=== PATIENT | female | born 1960 | race Caucasian/White ===

== ENCOUNTER 2019-05-01 15:31 | Emergency (ER) | payer OTHER ==
[~2019-05-01] VITALS: Ht 154.9 cm; Wt 99.8 kg
--- OUTSIDE RECORDS SUMMARY | 2019-05-01 15:35 | XMS REPORT ---
Author Author [facility] Address Unknown Phone Unavailable Care Team Providers Care Treatment Manager Name Role Phone Jo STOKES PP Unavailable TONY SUAREZ M.D. Unavailable Unavailable LINWOOD EPSTEIN M.D. Unavailable Unavailable Problems This patient has no known problems. Allergies, Adverse Reactions, Alerts This patient has no known allergies or adverse reactions. Medications This patient has no known medications. Encounters Start Date/Time End Date/Time Encounter Type Admission Type Attending Clinicians [facility] Facility Care Department Encounter ID 2017-01-27 17:01:00 Inpatient C [facility] [id number] 2018-12-28 18:35:00 2018-12-28 14:05:00 Inpatient E [facility] [id number] 2017-10-12 20:34:00 2017-10-12 20:34:00 Inpatient E [facility] [id number] 2017-09-01 13:56:00 2017-09-01 13:56:00 Emergency E [facility] [id number] 2016-12-22 06:03:00 2016-12-22 06:03:00 Outpatient C [facility] [id number] Results Test Description Test Time Test Comments Text Results Atomic Results Result Comments CHEST 1 VIEW PORTABLE 2018-12-23 09:55:[address] [id number] IMAGING REPORTPatient Name: RONNY VELIZ EDate of Service: [id number]: 58 Sex: F Order #: [id number] Room: [facility] A 3SDOB: 1960 X-Ray Number: [id number] Record Number: [id number] Hospital Number: [id number] Physician: DIANE PRATT - Ordering Physician: VIKTOR REILLY ONE VIEW 12/23/2018 at 9:21 AMHISTORY: Chest wall abscess, CAD, PICC placementCOMPARISON: Earlier on the same dayLeft upper extremity PICC is only seen as far as the left brachiocephalicvein level. The tip could be at the upper most aspect of the SVC and simplyobscured by sternal hardware.No other change from earlier on the same day.Electronically Signed By: Delmar Cristobal M.D., 12/23/2018 9:53 AMLegally authenticated by ISIDRO AGUILAR 2018-12-23 09:53:16 CHEST 1 VIEW PORTABLE 2018-12-23 08:36:[address] [id number] IMAGING REPORTPatient Name: RONNY VELIZ EDate of Service: [id number]: 58 Sex: F Order #: [id number] Room: [facility] 3SDOB: 1960 X-Ray Number: [id number] Record Number: [id number] Hospital Number: [id number] Physician: DIANE PRATT - Ordering Physician: JOSIAH LAM ONE VIEW 12/23/2018HISTORY: Chest wall abscess, post CABGCOMPARISON: 12/13/2018Support tubes have been removed. Extensive sternal fixation hardwareremains in place.Cardiac, hilar, and mediastinal structures are stable.Lungs show diffusely increased background interstitial markings which maybe due to an element of edema. Linear densities are also present at the midto lower lungs. Findings may be due to atelectasis or pneumonia.No new bony or soft tissue abnormalities are identified. Lower anteriorcervical spine fusion hardware is in place.IMPRESSION:Possible mild pulmonary interstitial edema with scattered areas ofatelectasis versus pneumonia bilaterally.Electronically Signed By: Delmar Cristobal M.D., 12/23/2018 7:56 AMLegally authenticated by ISIDRO AGUILAR 2018-12-23 07:56:47 BMP, BASIC METABOLIC PANEL 2018-12-23 05:47:00 SODIUM (test code=NA) 140 MMOL/L 137-145 K+ (test code=KSERUM) 5.2 MMOL/L 3.5-5.1 PLEASE NOTE NEW REFERENCE RANGE(S) IN EFFECT EFFECTIVE 02/06/2010 - NEW ANALYZER (VITROS 5600) CHLORIDE (test code=CL) 100 MMOL/L 98-107 CO2 (test code=CO2) 32 MMOL/L 22-30 BUN (test code=BUN) 16 MG/DL 7-17 CREA (test code=CREA) 0.7 MG/DL 0.7-1.2 GLUCOSE (test code=GLUCOSE) 206 MG/DL 70-99 Fasting glucose normal <100 MG/DL- [employer] recommendation CALCIUM (test code=CABLOOD) 8.1 MG/DL 8.4-10.2 GFR (test code=GFR) 91 mL/min/1.73m2 A GFR of >90 mL/min/1.73m2 is considered normal. [id number] 04:54:00* Test Item Value Reference Range Comments WBC (test code=WBC) 9.3 K/UL 3.5-10.9 RBC (test code=RBC) 3.16 M/UL 4.0-5.0 HGB (test code=HGB) 8.4 G/DL 11.5-15.5 HCT (test code=HCT) 29.1 % 34-46 MCV (test code=MCV) 92.1 FL 80-98 MCH (test code=MCH) 26.6 PG 28-32 MCHC (test code=MCHC) 28.9 G/DL 32.5-36.5 RDW (test code=RDW) 15.2 % 11.5-14.5 PLT (test code=PLT) 374 K/UL 150-450 MPV (test code=MPV) 10.7 FL 7.4-10.4 MANDIFF (test code=MANDIFF) NO SCAN (test code=SCAN) NO NEUT% (test code=NEUT%) 76.3 % 40-75 LYMPH% (test code=LYMPH%) 9.2 % 24-44 MONO% (test code=MONO%) 10.2 % 0-13 EOS% (test code=EOS%) 3.4 % 0-4 BASO % (test code=BASO%) 0.3 % 0-2 IG (test code=IG) 0 % 0-1 IG% (test code=IG%) 0.6 % 0-1 IG%=Metamyelocytes, Myelocytes, and Promyelocytes. (Immature neutrophils not including "bands".) > 3% IG indicates risk of sepsis NRBC% (test code=NRBC%) 0 /100 WBC ABS NEUT (test code=NEUT) 7.1 K/UL 1.2-7.2 WHOLE BLOOD [id number] 10:35:00* Test Item Value Reference Range Comments WHOLE BLOOD GLUCOSE (test code=POC GLU) 96 MG/DL 70-99 Fasting glucose normal <100 MG/DL- [employer] recommendation WHOLE BLOOD [id number] 10:10:00* Test Item Value Reference Range Comments WHOLE BLOOD GLUCOSE (test code=POC GLU) 140 MG/DL 70-99 Fasting glucose normal <100 MG/DL- [employer] recommendation WHOLE BLOOD [id number] 21:00:00* Test Item Value Reference Range Comments WHOLE BLOOD GLUCOSE (test code=POC GLU) 189 MG/DL 70-99 Fasting glucose normal <100 MG/DL- [employer] recommendation WHOLE BLOOD [id number] 17:15:00* Test Item Value Reference Range Comments WHOLE BLOOD GLUCOSE (test code=POC GLU) 175 MG/DL 70-99 Fasting glucose normal <100 MG/DL- [employer] recommendation WHOLE BLOOD [id number] 11:45:00* Test Item Value Reference Range Comments WHOLE BLOOD GLUCOSE (test code=POC GLU) 157 MG/DL 70-99 Fasting glucose normal <100 MG/DL- [employer] recommendation BMP, BASIC METABOLIC [id number] 09:49:00* Test Item Value Reference Range Comments SODIUM (test code=NA) 142 MMOL/L 137-145 K+ (test code=KSERUM) 4.0 MMOL/L 3.5-5.1 PLEASE NOTE NEW REFERENCE RANGE(S) IN EFFECT EFFECTIVE 02/06/2010 - NEW ANALYZER (Banter! 5600) CHLORIDE (test code=CL) 104 MMOL/L 98-107 CO2 (test code=CO2) 34 MMOL/L 22-30 BUN (test code=BUN) 25 MG/DL 7-17 CREA (test code=CREA) 0.7 MG/DL 0.7-1.2 GLUCOSE (test code=GLUCOSE) 101 MG/DL 70-99 Fasting glucose normal <100 MG/DL- [employer] recommendation CALCIUM (test code=CABLOOD) 8.4 MG/DL 8.4-10.2 GFR (test code=GFR) 91 mL/min/1.73m2 A GFR of >90 mL/min/1.73m2 is considered normal. RESULT VERIFIED BY REPEAT ANALYSIS ON ALTERNATE INSTRUMENT.[id number] 09:01:00* Test Item Value Reference Range Comments WBC (test code=WBC) 5.0 K/UL 3.5-10.9 RBC (test code=RBC) 3.10 M/UL 4.0-5.0 HGB (test code=HGB) 8.5 G/DL 11.5-15.5 HCT (test code=HCT) 28.0 % 34-46 MCV (test code=MCV) 90.3 FL 80-98 MCH (test code=MCH) 27.4 PG 28-32 MCHC (test code=MCHC) 30.4 G/DL 32.5-36.5 RDW (test code=RDW) 15.0 % 11.5-14.5 PLT (test code=PLT) 309 K/UL 150-450 MPV (test code=MPV) 10.5 FL 7.4-10.4 MANDIFF (test code=MANDIFF) NO SCAN (test code=SCAN) NO NEUT% (test code=NEUT%) 55.4 % 40-75 LYMPH% (test code=LYMPH%) 24.8 % 24-44 MONO% (test code=MONO%) 10.6 % 0-13 EOS% (test code=EOS%) 8.0 % 0-4 BASO % (test code=BASO%) 0.6 % 0-2 IG (test code=IG) 0 % 0-1 IG% (test code=IG%) 0.6 % 0-1 IG%=Metamyelocytes, Myelocytes, and Promyelocytes. (Immature neutrophils not including "bands".) > 3% IG indicates risk of sepsis NRBC% (test code=NRBC%) 0 /100 WBC ABS NEUT (test code=NEUT) 2.8 K/UL 1.2-7.2 WHOLE BLOOD [id number] 08:00:00* Test Item Value Reference Range Comments WHOLE BLOOD GLUCOSE (test code=POC GLU) 113 MG/DL 70-99 Fasting glucose normal <100 MG/DL- [employer] recommendation WHOLE BLOOD [id number] 22:05:00* Test Item Value Reference Range Comments WHOLE BLOOD GLUCOSE (test code=POC GLU) 158 MG/DL 70-99 Fasting glucose normal <100 MG/DL- [employer] recommendation WHOLE BLOOD [id number] 17:10:00* Test Item Value Reference Range Comments WHOLE BLOOD GLUCOSE (test code=POC GLU) 129 MG/DL 70-99 Fasting glucose normal <100 MG/DL- [employer] recommendation WHOLE BLOOD [id number] 11:45:00* Test Item Value Reference Range Comments WHOLE BLOOD GLUCOSE (test code=POC GLU) 114 MG/DL 70-99 Fasting glucose normal <100 MG/DL- [employer] recommendation WHOLE BLOOD [id number] 09:25:00* Test Item Value Reference Range Comments WHOLE BLOOD GLUCOSE (test code=POC GLU) 115 MG/DL 70-99 Fasting glucose normal <100 MG/DL- [employer] recommendation WHOLE BLOOD [id number] 21:25:00* Test Item Value Reference Range Comments WHOLE BLOOD GLUCOSE (test code=POC GLU) 142 MG/DL 70-99 Fasting glucose normal <100 MG/DL- [employer] recommendation WHOLE BLOOD [id number] 17:00:00* Test Item Value Reference Range Comments WHOLE BLOOD GLUCOSE (test code=POC GLU) 142 MG/DL 70-99 Fasting glucose normal <100 MG/DL- [employer] recommendation WHOLE BLOOD [id number] 12:40:00* Test Item Value Reference Range Comments WHOLE BLOOD GLUCOSE (test code=POC GLU) 148 MG/DL 70-99 Fasting glucose normal <100 MG/DL- [employer] recommendation WHOLE BLOOD [id number] 07:55:00* Test Item Value Reference Range Comments WHOLE BLOOD GLUCOSE (test code=POC GLU) 119 MG/DL 70-99 Fasting glucose normal <100 MG/DL- [employer] recommendation WHOLE BLOOD [id number] 21:15:00* Test Item Value Reference Range Comments WHOLE BLOOD GLUCOSE (test code=POC GLU) 173 MG/DL 70-99 Fasting glucose normal <100 MG/DL- [employer] recommendation WHOLE BLOOD [id number] 17:25:00* Test Item Value Reference Range Comments WHOLE BLOOD GLUCOSE (test code=POC GLU) 132 MG/DL 70-99 Fasting glucose normal <100 MG/DL- [employer] recommendation WHOLE BLOOD [id number] 11:50:00* Test Item Value Reference Range Comments WHOLE BLOOD GLUCOSE (test code=POC GLU) 191 MG/DL 70-99 Fasting glucose normal <100 MG/DL- [employer] recommendation WHOLE BLOOD [id number] 08:55:00* Test Item Value Reference Range Comments WHOLE BLOOD GLUCOSE (test code=POC GLU) 155 MG/DL 70-99 Fasting glucose normal <100 MG/DL- [employer] recommendation WHOLE BLOOD [id number] 21:15:00* Test Item Value Reference Range Comments WHOLE BLOOD GLUCOSE (test code=POC GLU) 172 MG/DL 70-99 Fasting glucose normal <100 MG/DL- [employer] recommendation WHOLE BLOOD [id number] 17:10:00* Test Item Value Reference Range Comments WHOLE BLOOD GLUCOSE (test code=POC GLU) 201 MG/DL 70-99 Fasting glucose normal <100 MG/DL- [employer] recommendation WHOLE BLOOD [id number] 17:10:00* Test Item Value Reference Range Comments WHOLE BLOOD GLUCOSE (test code=POC GLU) 199 MG/DL 70-99 Fasting glucose normal <100 MG/DL- [employer] recommendation WHOLE BLOOD [id number] 11:40:00* Test Item Value Reference Range Comments WHOLE BLOOD GLUCOSE (test code=POC GLU) 104 MG/DL 70-99 Fasting glucose normal <100 MG/DL- [employer] recommendation BMP, BASIC METABOLIC [id number] 06:38:00* Test Item Value Reference Range Comments SODIUM (test code=NA) 140 MMOL/L 137-145 K+ (test code=KSERUM) 4.0 MMOL/L 3.5-5.1 PLEASE NOTE NEW REFERENCE RANGE(S) IN EFFECT EFFECTIVE 02/06/2010 - NEW ANALYZER (Banter! 5600) CHLORIDE (test code=CL) 102 MMOL/L 98-107 CO2 (test code=CO2) 33 MMOL/L 22-30 BUN (test code=BUN) 29 MG/DL 7-17 CREA (test code=CREA) 0.7 MG/DL 0.7-1.2 GLUCOSE (test code=GLUCOSE) 227 MG/DL 70-99 Fasting glucose normal <100 MG/DL- [employer] recommendation CALCIUM (test code=CABLOOD) 8.5 MG/DL 8.4-10.2 GFR (test code=GFR) 91 mL/min/1.73m2 A GFR of >90 mL/min/1.73m2 is considered normal. RESULT VERIFIED BY REPEAT ANALYSIS ON ALTERNATE INSTRUMENT.[id number] 06:38:00* Test Item Value Reference Range Comments MG (test code=MG) 2.1 mg/dL 1.6-2.3 1 UNIT [id number] 02:07:00* Test Item Value Reference Range Comments PI (test code=PI) GUARD ENTRANCE REGISTRAR SI (test code=SI) Released WHOLE BLOOD [id number] 21:35:00* Test Item Value Reference Range Comments WHOLE BLOOD GLUCOSE (test code=POC GLU) 200 MG/DL 70-99 Fasting glucose normal <100 MG/DL- [employer] recommendation WHOLE BLOOD [id number] 18:15:00* Test Item Value Reference Range Comments WHOLE BLOOD GLUCOSE (test code=POC GLU) 215 MG/DL 70-99 Fasting glucose normal <100 MG/DL- [employer] recommendation WHOLE BLOOD [id number] 12:05:00* Test Item Value Reference Range Comments WHOLE BLOOD GLUCOSE (test code=POC GLU) 183 MG/DL 70-99 Fasting glucose normal <100 MG/DL- [employer] recommendation WHOLE BLOOD [id number] 07:05:00* Test Item Value Reference Range Comments WHOLE BLOOD GLUCOSE (test code=POC GLU) 172 MG/DL 70-99 Fasting glucose normal <100 MG/DL- [employer] recommendation WHOLE BLOOD [id number] 05:35:00* Test Item Value Reference Range Comments WHOLE BLOOD GLUCOSE (test code=POC GLU) 177 MG/DL 70-99 Fasting glucose normal <100 MG/DL- [employer] recommendation WHOLE BLOOD [id number] 18:05:00* Test Item Value Reference Range Comments WHOLE BLOOD GLUCOSE (test code=POC GLU) 132 MG/DL 70-99 Fasting glucose normal <100 MG/DL- [employer] recommendation WHOLE BLOOD [id number] 16:50:00* Test Item Value Reference Range Comments WHOLE BLOOD GLUCOSE (test code=POC GLU) 165 MG/DL 70-99 Fasting glucose normal <100 MG/DL- [employer] recommendation WHOLE BLOOD [id number] 12:30:00* Test Item Value Reference Range Comments WHOLE BLOOD GLUCOSE (test code=POC GLU) 122 MG/DL 70-99 Fasting glucose normal <100 MG/DL- [employer] recommendation [id number] 04:14:00* Test Item Value Reference Range Comments SODIUM (test code=NA) 141 MMOL/L 137-145 K+ (test code=KSERUM) 4.2 MMOL/L 3.5-5.1 PLEASE NOTE NEW REFERENCE RANGE(S) IN EFFECT EFFECTIVE 02/06/2010 - NEW ANALYZER (Banter! 5600) CHLORIDE (test code=CL) 107 MMOL/L 98-107 CO2 (test code=CO2) 29 MMOL/L 22-30 BUN (test code=BUN) 10 MG/DL 7-17 CREA (test code=CREA) 0.6 MG/DL 0.7-1.2 GLUCOSE (test code=GLUCOSE) 97 MG/DL 70-99 Fasting glucose normal <100 MG/DL- [employer] recommendation CALCIUM (test code=CABLOOD) 8.3 MG/DL 8.4-10.2 TOTPROT (test code=TOTPROT) 6.3 G/DL 6.3-8.2 ALBUMIN (test code=ALBSERUM) 3.1 G/DL 3.5-5.0 BILITOT (test code=BILITOT) 0.3 MG/DL 0.2-1.3 AST (test code=AST) 50 U/L 15-46 PHOSALK (test code=PHOSALK) 96 U/L 38-126 ALT (test code=ALT) 48 U/L 13-69 GFR (test code=GFR) 108 mL/min/1.73m2 A GFR of >90 mL/min/1.73m2 is considered normal. [id number] 03:52:00* Test Item Value Reference Range Comments WBC (test code=WBC) 5.9 K/UL 3.5-10.9 RBC (test code=RBC) 3.56 M/UL 4.0-5.0 HGB (test code=HGB) 9.5 G/DL 11.5-15.5 HCT (test code=HCT) 32.4 % 34-46 MCV (test code=MCV) 91.0 FL 80-98 MCH (test code=MCH) 26.7 PG 28-32 MCHC (test code=MCHC) 29.3 G/DL 32.5-36.5 RDW (test code=RDW) 15.2 % 11.5-14.5 PLT (test code=PLT) 351 K/UL 150-450 MPV (test code=MPV) 9.7 FL 7.4-10.4 MANDIFF (test code=MANDIFF) NO SCAN (test code=SCAN) NO NEUT% (test code=NEUT%) 64.8 % 40-75 LYMPH% (test code=LYMPH%) 17.3 % 24-44 MONO% (test code=MONO%) 10.0 % 0-13 EOS% (test code=EOS%) 6.9 % 0-4 BASO % (test code=BASO%) 0.7 % 0-2 IG (test code=IG) 0 % 0-1 IG% (test code=IG%) 0.3 % 0-1 IG%=Metamyelocytes, Myelocytes, and Promyelocytes. (Immature neutrophils not including "bands".) > 3% IG indicates risk of sepsis NRBC% (test code=NRBC%) 0 /100 WBC ABS NEUT (test code=NEUT) 3.8 K/UL 1.2-7.2 WHOLE BLOOD [id number] 02:10:00* Test Item Value Reference Range Comments WHOLE BLOOD GLUCOSE (test code=POC GLU) 216 MG/DL 70-99 Fasting glucose normal <100 MG/DL- [employer] recommendation WHOLE BLOOD [id number] 21:35:00* Test Item Value Reference Range Comments WHOLE BLOOD GLUCOSE (test code=POC GLU) 103 MG/DL 70-99 Fasting glucose normal <100 MG/DL- [employer] recommendation 1 UNIT [id number] 20:00:00* Test Item Value Reference Range Comments PI (test code=PI) GUARD ENTRANCE REGISTRAR SI (test code=SI) Transfused WHOLE BLOOD [id number] 12:15:00* Test Item Value Reference Range Comments WHOLE BLOOD GLUCOSE (test code=POC GLU) 99 MG/DL 70-99 Fasting glucose normal <100 MG/DL- [employer] recommendation WHOLE BLOOD [id number] 12:15:00* Test Item Value Reference Range Comments WHOLE BLOOD GLUCOSE (test code=POC GLU) 120 MG/DL 70-99 Fasting glucose normal <100 MG/DL- [employer] recommendation WHOLE BLOOD [id number] 12:15:00* Test Item Value Reference Range Comments WHOLE BLOOD GLUCOSE (test code=POC GLU) 62 MG/DL 70-99 Fasting glucose normal <100 MG/DL- [employer] recommendation WHOLE BLOOD [id number] 10:30:00* Test Item Value Reference Range Comments WHOLE BLOOD GLUCOSE (test code=POC GLU) 51 MG/DL 70-99 Fasting glucose normal <100 MG/DL- [employer] recommendation BLOOD GAS [id number] 09:52:00* Test Item Value Reference Range Comments SITE (test code=SITE) ARTLINE SITE ALLENS (test code=ALLENS) NA O2 EQUIP (test code=O2 EQUIP) VENT O2-DEVICE FIO2 (test code=FIO2) 50 % CPAP (test code=CPAP) 5 PS (test code=PS) 10 PH (test code=BGPH) 7.46 7.35-7.45 PCO2 (test code=PCO2) 37 MMHG 34.0-45.0 PO2 (test code=PO2) 73 MMHG 79-87 HCO3 (test code=HCO3) 26.3 mmol/L 22.0-26.0 BE (test code=BE) 2.4 mmol/L -2.0-2.0 THB (test code=THB) 9.5 G/DL 12-16 % 02 HB (test code=ABGSAT) 93.1 % 96.0-100.0 %COHB (test code=BGCO) 2.1 % <1.5 % MET HB (test code=%MET HB) 1.0 % 0.4-1.5 CAO2 (test code=CAO2) 12.5 VOL% 15.7-21.6 PF/RATIO (test code=PF/RATIO) 146.0 ANTICOAG?: NA LAST DOSE?:CHEST 1 VIEW [id number] 07:27:[address] [id number] IMAGING REPORTPatient Name: RONNY VELIZ of Service: 28-08-7531Ztl: 58 Sex: F Order #: [id number] Room: [facility] 2CVUDOB: 1960 X-Ray Number: [id number] Record Number: [id number] Hospital Number: [id number] Physician: DIANE PRATT -Ordering Physician: YESENIA GARCIA hest:12/13/2018 4:51 AMHistory: Respiratory failure.Technique: Single AP chest pr ojection.Comparison:December 12, 2018.Findings:Cardiomegaly and persistent mild inte rstitial infiltrates in the lungbases. Endotracheal, NG tube appear stable. Prio r sternotomy.Impression:No interval change.Electronically Signed By: Chauncey lee M.D., 12/13/2018 7:25 AMLegally authenticated by WANDA Gonzalez 2018-0 12-13 07:25:23WHOLE BLOOD [id number] 06:30:00* Test Item Value Reference Range Comments WHOLE BLOOD GLUCOSE (test code=POC GLU) 115 MG/DL 70-99 Fasting glucose normal <100 MG/DL- [employer] recommendation WHOLE BLOOD [id number] 06:20:00* Test Item Value Reference Range Comments WHOLE BLOOD GLUCOSE (test code=POC GLU) 67 MG/DL 70-99 Fasting glucose normal <100 MG/DL- [employer] recommendation WHOLE BLOOD [id number] 05:45:00* Test Item Value Reference Range Comments WHOLE BLOOD GLUCOSE (test code=POC GLU) 73 MG/DL 70-99 Fasting glucose normal <100 MG/DL- [employer] recommendation BMP, BASIC METABOLIC [id number] 04:46:00* Test Item Value Reference Range Comments SODIUM (test code=NA) 138 MMOL/L 137-145 K+ (test code=KSERUM) 4.3 MMOL/L 3.5-5.1 PLEASE NOTE NEW REFERENCE RANGE(S) IN EFFECT EFFECTIVE 02/06/2010 - NEW ANALYZER ([employer]ter! 5600) CHLORIDE (test code=CL) 108 MMOL/L 98-107 CO2 (test code=CO2) 27 MMOL/L 22-30 BUN (test code=BUN) 17 MG/DL 7-17 CREA (test code=CREA) 0.6 MG/DL 0.7-1.2 GLUCOSE (test code=GLUCOSE) 62 MG/DL 70-99 Fasting glucose normal <100 MG/DL- [employer] recommendation CALCIUM (test code=CABLOOD) 8.0 MG/DL 8.4-10.2 GFR (test code=GFR) 108 mL/min/1.73m2 A GFR of >90 mL/min/1.73m2 is considered normal. BLOOD GAS [id number] 04:36:00* Test Item Value Reference Range Comments SITE (test code=SITE) [place]OR[place] SITE ALLENS (test code=ALLENS) NA O2 EQUIP (test code=O2 EQUIP) 840 O2-DEVICE FIO2 (test code=FIO2) 40 % A/C (test code=A/C) 12 PEEP (test code=PEEP) 5 VT (test code=VT) 600 PIP (test code=PIP) 24 VMIN (test code=VMIN) 7.46 PH (test code=BGPH) 7.42 7.35-7.45 PCO2 (test code=PCO2) 47 MMHG 34.0-45.0 PO2 (test code=PO2) 104 MMHG 79-87 HCO3 (test code=HCO3) 30.5 mmol/L 22.0-26.0 BE (test code=BE) 5.4 mmol/L -2.0-2.0 THB (test code=THB) 8.6 G/DL 12-16 % 02 HB (test code=ABGSAT) 95.3 % 96.0-100.0 %COHB (test code=BGCO) 2.2 % <1.5 % MET HB (test code=%MET HB) 0.7 % 0.4-1.5 CAO2 (test code=CAO2) 11.7 VOL% 15.7-21.6 PF/RATIO (test code=PF/RATIO) 260.0 ANTICOAG?: LAST DOSE?:[id number] 04:03:00* Test Item Value Reference Range Comments WBC (test code=WBC) 5.5 K/UL 3.5-10.9 RBC (test code=RBC) 3.17 M/UL 4.0-5.0 HGB (test code=HGB) 8.5 G/DL 11.5-15.5 HCT (test code=HCT) 28.5 % 34-46 MCV (test code=MCV) 89.9 FL 80-98 MCH (test code=MCH) 26.8 PG 28-32 MCHC (test code=MCHC) 29.8 G/DL 32.5-36.5 RDW (test code=RDW) 15.5 % 11.5-14.5 PLT (test code=PLT) 362 K/UL 150-450 MPV (test code=MPV) 10.1 FL 7.4-10.4 MANDIFF (test code=MANDIFF) NO SCAN (test code=SCAN) NO NEUT% (test code=NEUT%) 63.8 % 40-75 LYMPH% (test code=LYMPH%) 17.9 % 24-44 MONO% (test code=MONO%) 9.2 % 0-13 EOS% (test code=EOS%) 8.2 % 0-4 BASO % (test code=BASO%) 0.7 % 0-2 IG (test code=IG) 0 % 0-1 IG% (test code=IG%) 0.2 % 0-1 IG%=Metamyelocytes, Myelocytes, and Promyelocytes. (Immature neutrophils not including "bands".) > 3% IG indicates risk of sepsis NRBC% (test code=NRBC%) 0 /100 WBC ABS NEUT (test code=NEUT) 3.5 K/UL 1.2-7.2 WHOLE BLOOD [id number] 18:50:00* Test Item Value Reference Range Comments WHOLE BLOOD GLUCOSE (test code=POC GLU) 84 MG/DL 70-99 Fasting glucose normal <100 MG/DL- [employer] recommendation [id number] 18:38:00* Test Item Value Reference Range Comments WBC (test code=WBC) 4.9 K/UL 3.5-10.9 RBC (test code=RBC) 3.10 M/UL 4.0-5.0 HGB (test code=HGB) 8.3 G/DL 11.5-15.5 HCT (test code=HCT) 28.4 % 34-46 MCV (test code=MCV) 91.6 FL 80-98 MCH (test code=MCH) 26.8 PG 28-32 MCHC (test code=MCHC) 29.2 G/DL 32.5-36.5 RDW (test code=RDW) 15.4 % 11.5-14.5 PLT (test code=PLT) 383 K/UL 150-450 MPV (test code=MPV) 9.9 FL 7.4-10.4 MANDIFF (test code=MANDIFF) NO SCAN (test code=SCAN) NO NEUT% (test code=NEUT%) 64.3 % 40-75 LYMPH% (test code=LYMPH%) 20.1 % 24-44 MONO% (test code=MONO%) 7.2 % 0-13 EOS% (test code=EOS%) 7.6 % 0-4 BASO % (test code=BASO%) 0.6 % 0-2 IG (test code=IG) 0 % 0-1 IG% (test code=IG%) 0.2 % 0-1 IG%=Metamyelocytes, Myelocytes, and Promyelocytes. (Immature neutrophils not including "bands".) > 3% IG indicates risk of sepsis NRBC% (test code=NRBC%) 0 /100 WBC ABS NEUT (test code=NEUT) 3.1 K/UL 1.2-7.2 BMP, BASIC METABOLIC [id number] 18:33:00* Test Item Value Reference Range Comments SODIUM (test code=NA) 139 MMOL/L 137-145 K+ (test code=KSERUM) 4.4 MMOL/L 3.5-5.1 PLEASE NOTE NEW REFERENCE RANGE(S) IN EFFECT EFFECTIVE 02/06/2010 - NEW ANALYZER ([employer]! [id number]) CHLORIDE (test code=CL) 108 MMOL/L 98-107 CO2 (test code=CO2) 28 MMOL/L 22-30 BUN (test code=BUN) 15 MG/DL 7-17 CREA (test code=CREA) 0.7 MG/DL 0.7-1.2 GLUCOSE (test code=GLUCOSE) 124 MG/DL 70-99 Fasting glucose normal <100 MG/DL- [employer] recommendation CALCIUM (test code=CABLOOD) 7.6 MG/DL 8.4-10.2 GFR (test code=GFR) 91 mL/min/1.73m2 A GFR of >90 mL/min/1.73m2 is considered normal. BLOOD GAS [id number] 17:35:00* Test Item Value Reference Range Comments SITE (test code=SITE) ARTLINE SITE ALLENS (test code=ALLENS) NA O2 EQUIP (test code=O2 EQUIP) VENT O2-DEVICE FIO2 (test code=FIO2) 50 % A/C (test code=A/C) 12 PT. RR (test code=PT. RR) 13 PEEP (test code=PEEP) 5 VT (test code=VT) 600 PIP (test code=PIP) 32 VMIN (test code=VMIN) 7.97 PH (test code=BGPH) 7.39 7.35-7.45 PCO2 (test code=PCO2) 47 MMHG 34.0-45.0 PO2 (test code=PO2) 148 MMHG 79-87 HCO3 (test code=HCO3) 28.5 mmol/L 22.0-26.0 BE (test code=BE) 3.1 mmol/L -2.0-2.0 THB (test code=THB) 8.6 G/DL 12-16 % 02 HB (test code=ABGSAT) 95.2 % 96.0-100.0 %COHB (test code=BGCO) 2.0 % <1.5 % MET HB (test code=%MET HB) 1.2 % 0.4-1.5 CAO2 (test code=CAO2) 11.8 VOL% 15.7-21.6 PF/RATIO (test code=PF/RATIO) 296.0 ANTICOAG?: NA LAST DOSE?:CHEST 1 VIEW [id number] 16:58:0018 Fry [address] [address]ATKMXQJBTC IMAGING REPORTPatient Name: RONNY VELIZ of Service: [id number]: 58 Sex: F Order #: [id number] Room: [facility] A 2CVUDOB: 1960 X-Ray Number: [id number] Record Number: [id number] Hospital Number: [id number] Physician: DIANE PRATT -Ordering Physician: YESENIA GARCIA HEST 1 VIEW PORTABLE 12/12/2018 4:50 PMHistory: Post opComparisons: 12/11/2018FI NDINGS:There are median sternotomy wires.Multiple wires overlie the chest. Chest tubes and drains are in place.RIGHT PICC line tip overlies expected cavoatrial junction.There is no significant pleural effusion.No pneumothorax identified at this time.There is minimal atelectasis at the lung bases.IMPRESSION:Bibasilar at electasis.Postsurgical changes.Electronically Signed By: Andrzej Avila M.D., 4:56 PMLegally authenticated by ULI PICKETT 2018-12-12 16:56:02WHOLE BLOOD [id number] 12:50:00* Test Item Value Reference Range Comments WHOLE BLOOD GLUCOSE (test code=POC GLU) 85 MG/DL 70-99 Fasting glucose normal <100 MG/DL- [employer] recommendation WHOLE BLOOD [id number] 09:05:00* Test Item Value Reference Range Comments WHOLE BLOOD GLUCOSE (test code=POC GLU) 114 MG/DL 70-99 Fasting glucose normal <100 MG/DL- [employer] recommendation WHOLE BLOOD [id number] 07:55:00* Test Item Value Reference Range Comments WHOLE BLOOD GLUCOSE (test code=POC GLU) 64 MG/DL 70-99 Fasting glucose normal <100 MG/DL- [employer] recommendation ANTIBODY [id number] 05:17:00* Test Item Value Reference Range Comments AB ID (test code=ABID) Anti-K [id number] 05:07:00* Test Item Value Reference Range Comments BLOOD TYPE (test code=TYPE) A Rh Positive Comment for Females Rhogam may be indicated for patient depending baby's Rh status. ANTIBODY SCREEN (test code=SCREEN) POSITIVE NEGATIVE DIRECT [id number] 05:06:00* Test Item Value Reference Range Comments IGG (test code=ANTI-IGG) NEGATIVE NEGATIVE IGG-C3D (test code=IGG-C3D) TNP NEGATIVE Test Not Performed BMP, BASIC METABOLIC [id number] 04:28:00* Test Item Value Reference Range Comments SODIUM (test code=NA) 142 MMOL/L 137-145 K+ (test code=KSERUM) 4.3 MMOL/L 3.5-5.1 PLEASE NOTE NEW REFERENCE RANGE(S) IN EFFECT EFFECTIVE 02/06/2010 - NEW ANALYZER (Banter! 5600) CHLORIDE (test code=CL) 104 MMOL/L 98-107 CO2 (test code=CO2) 31 MMOL/L 22-30 BUN (test code=BUN) 18 MG/DL 7-17 CREA (test code=CREA) 0.9 MG/DL 0.7-1.2 GLUCOSE (test code=GLUCOSE) 181 MG/DL 70-99 Fasting glucose normal <100 MG/DL- [employer] recommendation CALCIUM (test code=CABLOOD) 8.4 MG/DL 8.4-10.2 GFR (test code=GFR) 68 mL/min/1.73m2 A GFR of >90 mL/min/1.73m2 is considered normal. [id number] 03:28:00* Test Item Value Reference Range Comments PTT (test code=PTT) 30.0 SECONDS 24.4-36.3 HEPARIN THERAPEUTIC RANGE 57-92 SECONDS PROTHROMBIN TIME WITH [id number] 03:28:00* Test Item Value Reference Range Comments PROTHROMBIN TIME (test code=PT) 14.6 SECONDS 12.0-14.6 INR Usual Range=2 to 3 for prevention of deep vein thrombosis (DVT) INR (test code=INR) 1.1 [id number] 03:20:00* Test Item Value Reference Range Comments WBC (test code=WBC) 5.7 K/UL 3.5-10.9 RBC (test code=RBC) 3.43 M/UL 4.0-5.0 HGB (test code=HGB) 9.2 G/DL 11.5-15.5 HCT (test code=HCT) 31.7 % 34-46 MCV (test code=MCV) 92.4 FL 80-98 MCH (test code=MCH) 26.8 PG 28-32 MCHC (test code=MCHC) 29.0 G/DL 32.5-36.5 RDW (test code=RDW) 15.2 % 11.5-14.5 PLT (test code=PLT) 370 K/UL 150-450 MPV (test code=MPV) 10.1 FL 7.4-10.4 MANDIFF (test code=MANDIFF) NO SCAN (test code=SCAN) NO NEUT% (test code=NEUT%) 57.0 % 40-75 LYMPH% (test code=LYMPH%) 21.1 % 24-44 MONO% (test code=MONO%) 12.2 % 0-13 EOS% (test code=EOS%) 8.7 % 0-4 BASO % (test code=BASO%) 0.5 % 0-2 IG (test code=IG) 0 % 0-1 IG% (test code=IG%) 0.5 % 0-1 IG%=Metamyelocytes, Myelocytes, and Promyelocytes. (Immature neutrophils not including "bands".) > 3% IG indicates risk of sepsis NRBC% (test code=NRBC%) 0 /100 WBC ABS NEUT (test code=NEUT) 3.3 K/UL 1.2-7.2 WHOLE BLOOD [id number] 19:45:00* Test Item Value Reference Range Comments WHOLE BLOOD GLUCOSE (test code=POC GLU) 228 MG/DL 70-99 Fasting glucose normal <100 MG/DL- [employer] recommendation WHOLE BLOOD [id number] 17:45:00* Test Item Value Reference Range Comments WHOLE BLOOD GLUCOSE (test code=POC GLU) 204 MG/DL 70-99 Fasting glucose normal <100 MG/DL- [employer] recommendation CHEST XR 2 [id number] 17:01:[address] [id number] IMAGING REPORTPatient Name: RONNY VELIZ of Service: [id number]: 58 Sex: F Order #: [id number] Room: [facility] 3SDOB: 1960 X-Ray Number: [id number] Record Number: [id number] Hospital Number: [id number] Physician: DIANE PRATT - Ordering Physician: LIGIA POLLARD XR 2 VIEWS 12/11/2018 4:37 PMHISTORY: CV SURGERY . Chest wall abscess. Cutaneous abscess of the chestwall. CABG. Respiratory evaluation. Shortness of breath with cough.Hypertension.COMPARISON: 12/02/2018TECHNIQUE: Two-view chestFINDINGS:The right upper extremity PICC line is unchanged for the cardiomediastinalsilhouette is enlarged but stable. There is mild linear atelectasis in theleft mid to lower lung as well as the right lung base. There is no effusionor pneumothorax. There are surgical clips in the right neck. There is ACDFfusion hardware in the lower cervical spine.IMPRESSION:1. No acute cardiopulmonary process.2. Mild bibasilar atelectasis.3. Stable cardiomegaly without edema.Electronically Signed By: Nikita Cardoso M.D., 12/11/2018 4:59 PMLegally authenticated by BEN KERR 201 03-10-09 16:59:14WHOLE BLOOD [id number] 12:30:00* Test Item Value Reference Range Comments WHOLE BLOOD GLUCOSE (test code=POC GLU) 186 MG/DL 70-99 Fasting glucose normal <100 MG/DL- [employer] recommendation WHOLE BLOOD [id number] 08:05:00* Test Item Value Reference Range Comments WHOLE BLOOD GLUCOSE (test code=POC GLU) 228 MG/DL 70-99 Fasting glucose normal <100 MG/DL- [employer] recommendation WHOLE BLOOD [id number] 22:05:00* Test Item Value Reference Range Comments WHOLE BLOOD GLUCOSE (test code=POC GLU) 168 MG/DL 70-99 Fasting glucose normal <100 MG/DL- [employer] recommendation WHOLE BLOOD [id number] 12:20:00* Test Item Value Reference Range Comments WHOLE BLOOD GLUCOSE (test code=POC GLU) 185 MG/DL 70-99 Fasting glucose normal <100 MG/DL- [employer] recommendation WHOLE BLOOD [id number] 07:45:00* Test Item Value Reference Range Comments WHOLE BLOOD GLUCOSE (test code=POC GLU) 174 MG/DL 70-99 Fasting glucose normal <100 MG/DL- [employer] recommendation WHOLE BLOOD [id number] 22:10:00* Test Item Value Reference Range Comments WHOLE BLOOD GLUCOSE (test code=POC GLU) 269 MG/DL 70-99 Fasting glucose normal <100 MG/DL- [employer] recommendation WHOLE BLOOD [id number] 17:05:00* Test Item Value Reference Range Comments WHOLE BLOOD GLUCOSE (test code=POC GLU) 194 MG/DL 70-99 Fasting glucose normal <100 MG/DL- [employer] recommendation WHOLE BLOOD [id number] 12:00:00* Test Item Value Reference Range Comments WHOLE BLOOD GLUCOSE (test code=POC GLU) 235 MG/DL 70-99 Fasting glucose normal <100 MG/DL- [employer] recommendation WHOLE BLOOD [id number] 07:50:00* Test Item Value Reference Range Comments WHOLE BLOOD GLUCOSE (test code=POC GLU) 115 MG/DL 70-99 Fasting glucose normal <100 MG/DL- [employer] recommendation WHOLE BLOOD [id number] 21:45:00* Test Item Value Reference Range Comments WHOLE BLOOD GLUCOSE (test code=POC GLU) 191 MG/DL 70-99 Fasting glucose normal <100 MG/DL- [employer] recommendation WHOLE BLOOD [id number] 16:55:00* Test Item Value Reference Range Comments WHOLE BLOOD GLUCOSE (test code=POC GLU) 183 MG/DL 70-99 Fasting glucose normal <100 MG/DL- [employer] recommendation WHOLE BLOOD [id number] 12:00:00* Test Item Value Reference Range Comments WHOLE BLOOD GLUCOSE (test code=POC GLU) 254 MG/DL 70-99 Fasting glucose normal <100 MG/DL- [employer] recommendation C-REACTIVE [id number] 09:15:00* Test Item Value Reference Range Comments CRP (test code=CRP) 2.1 mg/dL 0.5-1.0 WHOLE BLOOD [id number] 08:10:00* Test Item Value Reference Range Comments WHOLE BLOOD GLUCOSE (test code=POC GLU) 87 MG/DL 70-99 Fasting glucose normal <100 MG/DL- [employer] recommendation [id number] 06:50:00* Test Item Value Reference Range Comments WBC (test code=WBC) 5.7 K/UL 3.5-10.9 RBC (test code=RBC) 3.74 M/UL 4.0-5.0 HGB (test code=HGB) 10.1 G/DL 11.5-15.5 HCT (test code=HCT) 33.8 % 34-46 MCV (test code=MCV) 90.4 FL 80-98 MCH (test code=MCH) 27.0 PG 28-32 MCHC (test code=MCHC) 29.9 G/DL 32.5-36.5 RDW (test code=RDW) 15.0 % 11.5-14.5 PLT (test code=PLT) 438 K/UL 150-450 MPV (test code=MPV) 10.5 FL 7.4-10.4 MANDIFF (test code=MANDIFF) NO SCAN (test code=SCAN) NO NEUT% (test code=NEUT%) 49.0 % 40-75 LYMPH% (test code=LYMPH%) 25.8 % 24-44 MONO% (test code=MONO%) 12.3 % 0-13 EOS% (test code=EOS%) 11.4 % 0-4 BASO % (test code=BASO%) 1.1 % 0-2 IG (test code=IG) 0 % 0-1 IG% (test code=IG%) 0.4 % 0-1 IG%=Metamyelocytes, Myelocytes, and Promyelocytes. (Immature neutrophils not including "bands".) > 3% IG indicates risk of sepsis NRBC% (test code=NRBC%) 0 /100 WBC ABS NEUT (test code=NEUT) 2.8 K/UL 1.2-7.2 WHOLE BLOOD [id number] 21:10:00* Test Item Value Reference Range Comments WHOLE BLOOD GLUCOSE (test code=POC GLU) 199 MG/DL 70-99 Fasting glucose normal <100 MG/DL- [employer] recommendation WHOLE BLOOD [id number] 17:10:00* Test Item Value Reference Range Comments WHOLE BLOOD GLUCOSE (test code=POC GLU) 141 MG/DL 70-99 Fasting glucose normal <100 MG/DL- [employer] recommendation WHOLE BLOOD [id number] 11:30:00* Test Item Value Reference Range Comments WHOLE BLOOD GLUCOSE (test code=POC GLU) 150 MG/DL 70-99 Fasting glucose normal <100 MG/DL- [employer] recommendation WHOLE BLOOD [id number] 08:10:00* Test Item Value Reference Range Comments WHOLE BLOOD GLUCOSE (test code=POC GLU) 135 MG/DL 70-99 Fasting glucose normal <100 MG/DL- [employer] recommendation WHOLE BLOOD [id number] 20:50:00* Test Item Value Reference Range Comments WHOLE BLOOD GLUCOSE (test code=POC GLU) 178 MG/DL 70-99 Fasting glucose normal <100 MG/DL- [employer] recommendation WHOLE BLOOD [id number] 17:00:00* Test Item Value Reference Range Comments WHOLE BLOOD GLUCOSE (test code=POC GLU) 200 MG/DL 70-99 Fasting glucose normal <100 MG/DL- [employer] recommendation WHOLE BLOOD [id number] 08:50:00* Test Item Value Reference Range Comments WHOLE BLOOD GLUCOSE (test code=POC GLU) 133 MG/DL 70-99 [id number] 06:55:00* Test Item Value Reference Range Comments MG (test code=MG) 2.2 mg/dL 1.6-2.3 BMP, BASIC METABOLIC [id number] 06:54:00* Test Item Value Reference Range Comments SODIUM (test code=NA) 140 MMOL/L 137-145 K+ (test code=KSERUM) 4.6 MMOL/L 3.5-5.1 PLEASE NOTE NEW REFERENCE RANGE(S) IN EFFECT EFFECTIVE 02/06/2010 - NEW ANALYZER (VITROS 5600) CHLORIDE (test code=CL) 100 MMOL/L 98-107 CO2 (test code=CO2) 31 MMOL/L 22-30 BUN (test code=BUN) 23 MG/DL 7-17 CREA (test code=CREA) 0.8 MG/DL 0.7-1.2 GLUCOSE (test code=GLUCOSE) 135 MG/DL 70-99 Fasting glucose normal <100 MG/DL- [employer] recommendation CALCIUM (test code=CABLOOD) 9.4 MG/DL 8.4-10.2 GFR (test code=GFR) 78 mL/min/1.73m2 A GFR of >90 mL/min/1.73m2 is considered normal. [id number] 06:34:00* Test Item Value Reference Range Comments WBC (test code=WBC) 6.1 K/UL 3.5-10.9 RBC (test code=RBC) 3.97 M/UL 4.0-5.0 HGB (test code=HGB) 10.8 G/DL 11.5-15.5 HCT (test code=HCT) 36.1 % 34-46 MCV (test code=MCV) 90.9 FL 80-98 MCH (test code=MCH) 27.2 PG 28-32 MCHC (test code=MCHC) 29.9 G/DL 32.5-36.5 RDW (test code=RDW) 15.0 % 11.5-14.5 PLT (test code=PLT) 439 K/UL 150-450 MPV (test code=MPV) 10.4 FL 7.4-10.4 MANDIFF (test code=MANDIFF) NO SCAN (test code=SCAN) NO NEUT% (test code=NEUT%) 50.7 % 40-75 LYMPH% (test code=LYMPH%) 24.9 % 24-44 MONO% (test code=MONO%) 13.6 % 0-13 EOS% (test code=EOS%) 9.7 % 0-4 BASO % (test code=BASO%) 0.8 % 0-2 IG (test code=IG) 0 % 0-1 IG% (test code=IG%) 0.3 % 0-1 IG%=Metamyelocytes, Myelocytes, and Promyelocytes. (Immature neutrophils not including "bands".) > 3% IG indicates risk of sepsis NRBC% (test code=NRBC%) 0 /100 WBC ABS NEUT (test code=NEUT) 3.1 K/UL 1.2-7.2 WHOLE BLOOD [id number] 21:10:00* Test Item Value Reference Range Comments WHOLE BLOOD GLUCOSE (test code=POC GLU) 196 MG/DL 70-99 WHOLE BLOOD [id number] 17:00:00* Test Item Value Reference Range Comments WHOLE BLOOD GLUCOSE (test code=POC GLU) 305 MG/DL 70-99 WHOLE BLOOD [id number] 12:05:00* Test Item Value Reference Range Comments WHOLE BLOOD GLUCOSE (test code=POC GLU) 179 MG/DL 70-99 WHOLE BLOOD [id number] 08:00:00* Test Item Value Reference Range Comments WHOLE BLOOD GLUCOSE (test code=POC GLU) 166 MG/DL 70-99 WHOLE BLOOD [id number] 21:35:00* Test Item Value Reference Range Comments WHOLE BLOOD GLUCOSE (test code=POC GLU) 156 MG/DL 70-99 WHOLE BLOOD [id number] 16:55:00* Test Item Value Reference Range Comments WHOLE BLOOD GLUCOSE (test code=POC GLU) 214 MG/DL 70-99 WHOLE BLOOD [id number] 12:00:00* Test Item Value Reference Range Comments WHOLE BLOOD GLUCOSE (test code=POC GLU) 199 MG/DL 70-99 WHOLE BLOOD [id number] 08:05:00* Test Item Value Reference Range Comments WHOLE BLOOD GLUCOSE (test code=POC GLU) 154 MG/DL 70-99 WHOLE BLOOD [id number] 21:10:00* Test Item Value Reference Range Comments WHOLE BLOOD GLUCOSE (test code=POC GLU) 252 MG/DL 70-99 WHOLE BLOOD [id number] 16:30:00* Test Item Value Reference Range Comments WHOLE BLOOD GLUCOSE (test code=POC GLU) 161 MG/DL 70-99 WHOLE BLOOD [id number] 12:05:00* Test Item Value Reference Range Comments WHOLE BLOOD GLUCOSE (test code=POC GLU) 205 MG/DL 70-99 WHOLE BLOOD [id number] 09:00:00* Test Item Value Reference Range Comments WHOLE BLOOD GLUCOSE (test code=POC GLU) 213 MG/DL 70-99 WHOLE BLOOD [id number] 19:45:00* Test Item Value Reference Range Comments WHOLE BLOOD GLUCOSE (test code=POC GLU) 203 MG/DL 70-99 WHOLE BLOOD [id number] 16:45:00* Test Item Value Reference Range Comments WHOLE BLOOD GLUCOSE (test code=POC GLU) 131 MG/DL 70-99 WHOLE BLOOD [id number] 12:15:00* Test Item Value Reference Range Comments WHOLE BLOOD GLUCOSE (test code=POC GLU) 292 MG/DL 70-99 WHOLE BLOOD [id number] 08:05:00* Test Item Value Reference Range Comments WHOLE BLOOD GLUCOSE (test code=POC GLU) 157 MG/DL 70-99 CHEST 1 VIEW [id number] 07:56:[address] [id number] IMAGING REPORTPatient Name: RONNY VELIZ EDate of Service: 76-07-9762Yoj: 58 Sex: F Order #: [id number] Room: [facility] 3SDOB: 1960 X-Ray Number: [id number] Record Number: [id number] Hospital Number: [id number] Physician: DIANE PRATT - Ordering Physician: YESENIA LAMPROCEDURE: CHEST 1 VIEWCOMPARISON: November 29, 2018INDICATIONS: Follow-up infiltrates.FINDINGS:LUNGS: Lung volumes are moderate to low with some streaky densities inboth lung bases.VASCULATURE: Slightly prominent centrally.CARDIAC: The cardiac silhouette is mildly enlarged.MEDIASTINUM: Unremarkable. No visible mass or adenopathy.PLEURA: Unremarkable. No effusion, pneumothorax, or pleural thickening.BONES: Mild osteophytosis throughout the thoracic spine.OTHER: Right-sided PICC in place with the tip at the cavoatrial junction.Previous cervical spine fusion.IMP RESSION: Mild cardiomegaly without evidence of CHF.Slightly improved bibasilar infiltrates or atelectasis compared toprevious.Underinflated lungs.Electronicall y Signed By: Jarret Decker MD, 12/02/2018 7:54 AMLegally authenticated by REID LOGAN (RAD) 2018-12-02 07:54:02BMP, BASIC METABOLIC [id number] 05:32:00* Test Item Value Reference Range Comments SODIUM (test code=NA) 140 MMOL/L 137-145 K+ (test code=KSERUM) 4.6 MMOL/L 3.5-5.1 PLEASE NOTE NEW REFERENCE RANGE(S) IN EFFECT EFFECTIVE 02/06/2010 - NEW ANALYZER ([employer]! 5600) CHLORIDE (test code=CL) 99 MMOL/L 98-107 CO2 (test code=CO2) 34 MMOL/L 22-30 BUN (test code=BUN) 25 MG/DL 7-17 CREA (test code=CREA) 0.7 MG/DL 0.7-1.2 GLUCOSE (test code=GLUCOSE) 117 MG/DL 70-99 Fasting glucose normal <100 MG/DL- [employer] recommendation CALCIUM (test code=CABLOOD) 8.9 MG/DL 8.4-10.2 GFR (test code=GFR) 91 mL/min/1.73m2 A GFR of >90 mL/min/1.73m2 is considered normal. [id number] 05:17:00* Test Item Value Reference Range Comments WBC (test code=WBC) 6.1 K/UL 3.5-10.9 RBC (test code=RBC) 3.72 M/UL 4.0-5.0 HGB (test code=HGB) 10.1 G/DL 11.5-15.5 HCT (test code=HCT) 34.2 % 34-46 MCV (test code=MCV) 91.9 FL 80-98 MCH (test code=MCH) 27.2 PG 28-32 MCHC (test code=MCHC) 29.5 G/DL 32.5-36.5 RDW (test code=RDW) 14.7 % 11.5-14.5 PLT (test code=PLT) 417 K/UL 150-450 MPV (test code=MPV) 10.1 FL 7.4-10.4 MANDIFF (test code=MANDIFF) NO SCAN (test code=SCAN) NO NEUT% (test code=NEUT%) 57.6 % 40-75 LYMPH% (test code=LYMPH%) 22.1 % 24-44 MONO% (test code=MONO%) 12.8 % 0-13 EOS% (test code=EOS%) 6.4 % 0-4 BASO % (test code=BASO%) 0.8 % 0-2 IG (test code=IG) 0 % 0-1 IG% (test code=IG%) 0.3 % 0-1 IG%=Metamyelocytes, Myelocytes, and Promyelocytes. (Immature neutrophils not including "bands".) > 3% IG indicates risk of sepsis NRBC% (test code=NRBC%) 0 /100 WBC ABS NEUT (test code=NEUT) 3.5 K/UL 1.2-7.2 WHOLE BLOOD [id number] 21:10:00* Test Item Value Reference Range Comments WHOLE BLOOD GLUCOSE (test code=POC GLU) 244 MG/DL 70-99 WHOLE BLOOD [id number] 17:30:00* Test Item Value Reference Range Comments WHOLE BLOOD GLUCOSE (test code=POC GLU) 175 MG/DL 70-99 WHOLE BLOOD [id number] 11:50:00* Test Item Value Reference Range Comments WHOLE BLOOD GLUCOSE (test code=POC GLU) 203 MG/DL 70-99 WHOLE BLOOD [id number] 08:05:00* Test Item Value Reference Range Comments WHOLE BLOOD GLUCOSE (test code=POC GLU) 75 MG/DL 70-99 WHOLE BLOOD [id number] 20:50:00* Test Item Value Reference Range Comments WHOLE BLOOD GLUCOSE (test code=POC GLU) 206 MG/DL 70-99 WHOLE BLOOD [id number] 20:00:00* Test Item Value Reference Range Comments WHOLE BLOOD GLUCOSE (test code=POC GLU) 172 MG/DL 70-99 WHOLE BLOOD [id number] 12:15:00* Test Item Value Reference Range Comments WHOLE BLOOD GLUCOSE (test code=POC GLU) 147 MG/DL 70-99 WHOLE BLOOD [id number] 08:40:00* Test Item Value Reference Range Comments WHOLE BLOOD GLUCOSE (test code=POC GLU) 174 MG/DL 70-99 BMP, BASIC METABOLIC [id number] 05:01:00* Test Item Value Reference Range Comments SODIUM (test code=NA) 138 MMOL/L 137-145 K+ (test code=KSERUM) 4.5 MMOL/L 3.5-5.1 PLEASE NOTE NEW REFERENCE RANGE(S) IN EFFECT EFFECTIVE 02/06/2010 - NEW ANALYZER ([employer]! 5600) CHLORIDE (test code=CL) 97 MMOL/L 98-107 CO2 (test code=CO2) 36 MMOL/L 22-30 BUN (test code=BUN) 21 MG/DL 7-17 CREA (test code=CREA) 0.9 MG/DL 0.7-1.2 GLUCOSE (test code=GLUCOSE) 230 MG/DL 70-99 Fasting glucose normal <100 MG/DL- [employer] recommendation CALCIUM (test code=CABLOOD) 8.4 MG/DL 8.4-10.2 GFR (test code=GFR) 68 mL/min/1.73m2 A GFR of >90 mL/min/1.73m2 is considered normal. [id number] 04:45:00* Test Item Value Reference Range Comments WBC (test code=WBC) 5.3 K/UL 3.5-10.9 RBC (test code=RBC) 3.35 M/UL 4.0-5.0 HGB (test code=HGB) 9.2 G/DL 11.5-15.5 HCT (test code=HCT) 31.6 % 34-46 MCV (test code=MCV) 94.3 FL 80-98 MCH (test code=MCH) 27.5 PG 28-32 MCHC (test code=MCHC) 29.1 G/DL 32.5-36.5 RDW (test code=RDW) 14.9 % 11.5-14.5 PLT (test code=PLT) 385 K/UL 150-450 MPV (test code=MPV) 10.3 FL 7.4-10.4 MANDIFF (test code=MANDIFF) NO SCAN (test code=SCAN) NO NEUT% (test code=NEUT%) 64.6 % 40-75 LYMPH% (test code=LYMPH%) 19.4 % 24-44 MONO% (test code=MONO%) 9.9 % 0-13 EOS% (test code=EOS%) 4.9 % 0-4 BASO % (test code=BASO%) 0.8 % 0-2 IG (test code=IG) 0 % 0-1 IG% (test code=IG%) 0.4 % 0-1 IG%=Metamyelocytes, Myelocytes, and Promyelocytes. (Immature neutrophils not including "bands".) > 3% IG indicates risk of sepsis NRBC% (test code=NRBC%) 0 /100 WBC ABS NEUT (test code=NEUT) 3.4 K/UL 1.2-7.2 WHOLE BLOOD [id number] 19:45:00* Test Item Value Reference Range Comments WHOLE BLOOD GLUCOSE (test code=POC GLU) 193 MG/DL 70-99 WHOLE BLOOD [id number] 16:35:00* Test Item Value Reference Range Comments WHOLE BLOOD GLUCOSE (test code=POC GLU) 200 MG/DL 70-99 WHOLE BLOOD [id number] 12:20:00* Test Item Value Reference Range Comments WHOLE BLOOD GLUCOSE (test code=POC GLU) 148 MG/DL 70-99 CHEST 1 VIEW [id number] 11:55:[address] [address]RABCMABPUS IMAGING REPORTPatient Name: RONNY VELIZ EDate of Service: 47-66-0219Qcx: 58 Sex: F Order #: [id number] Room: [facility] 3SDOB: 1960 X-Ray Number: [id number] Record Number: [id number] Hospital Number: [id number] Physician: DIANE PRATT - Ordering Physician: ARTUR REILLYPROCEDURE: CHEST 1 VIEWCOMPARISON: November 23, 2018INDICATIONS: PICCFINDINGS:LUNGS: Lung volumes are moderate with some transverse linear densities inthe mid to lower lungs bilaterally.VASCULATURE: Unremarkable. Unremarkable pulmonary vasculature.CARDIAC: The cardiac silhouette is mildly enlarged.MEDIASTINUM: Unremarkable. No visible mass or adenopathy.PLEURA: There is slight blunting of the left costophrenic angle.BONES: Previous fusion lower cervical spine. Osteophytosis lower tho racicspine.OTHER: New right-sided PICC in place with the tip in the cavoatrialj unction.IMPRESSION: The right-sided PICC in standard position.Slightly improved bibasilar atelectasis and/or infiltrates with trace lefteffusionElectronically Signed By: Jarret Decker MD, 11/29/2018 11:53 AMLegally authenticated by ALAN LOGAN (RAD) 2018-11-29 11:53:25WHOLE BLOOD [id number] 08:05:00* Test Item Value Reference Range Comments WHOLE BLOOD GLUCOSE (test code=POC GLU) 127 MG/DL 70-99 WHOLE BLOOD [id number] 20:15:00* Test Item Value Reference Range Comments WHOLE BLOOD GLUCOSE (test code=POC GLU) 178 MG/DL 70-99 WHOLE BLOOD [id number] 17:25:00* Test Item Value Reference Range Comments WHOLE BLOOD GLUCOSE (test code=POC GLU) 168 MG/DL 70-99 WHOLE BLOOD [id number] 12:15:00* Test Item Value Reference Range Comments WHOLE BLOOD GLUCOSE (test code=POC GLU) 137 MG/DL 70-99 WHOLE BLOOD [id number] 08:25:00* Test Item Value Reference Range Comments WHOLE BLOOD GLUCOSE (test code=POC GLU) 124 MG/DL 70-99 WHOLE BLOOD [id number] 21:40:00* Test Item Value Reference Range Comments WHOLE BLOOD GLUCOSE (test code=POC GLU) 143 MG/DL 70-99 WHOLE BLOOD [id number] 17:05:00* Test Item Value Reference Range Comments WHOLE BLOOD GLUCOSE (test code=POC GLU) 194 MG/DL 70-99 WHOLE BLOOD [id number] 11:25:00* Test Item Value Reference Range Comments WHOLE BLOOD GLUCOSE (test code=POC GLU) 140 MG/DL 70-99 WHOLE BLOOD [id number] 09:10:00* Test Item Value Reference Range Comments WHOLE BLOOD GLUCOSE (test code=POC GLU) 121 MG/DL 70-99 WHOLE BLOOD [id number] 09:10:00* Test Item Value Reference Range Comments WHOLE BLOOD GLUCOSE (test code=POC GLU) 64 MG/DL 70-99 WHOLE BLOOD [id number] 20:20:00* Test Item Value Reference Range Comments WHOLE BLOOD GLUCOSE (test code=POC GLU) 149 MG/DL 70-99 WHOLE BLOOD [id number] 17:15:00* Test Item Value Reference Range Comments WHOLE BLOOD GLUCOSE (test code=POC GLU) 194 MG/DL 70-99 WHOLE BLOOD [id number] 11:55:00* Test Item Value Reference Range Comments WHOLE BLOOD GLUCOSE (test code=POC GLU) 107 MG/DL 70-99 WHOLE BLOOD [id number] 08:15:00* Test Item Value Reference Range Comments WHOLE BLOOD GLUCOSE (test code=POC GLU) 69 MG/DL 70-99 [id number] 05:25:00* Test Item Value Reference Range Comments WBC (test code=WBC) 5.9 K/UL 3.5-10.9 RBC (test code=RBC) 3.24 M/UL 4.0-5.0 HGB (test code=HGB) 8.9 G/DL 11.5-15.5 HCT (test code=HCT) 30.5 % 34-46 MCV (test code=MCV) 94.1 FL 80-98 MCH (test code=MCH) 27.5 PG 28-32 MCHC (test code=MCHC) 29.2 G/DL 32.5-36.5 RDW (test code=RDW) 14.5 % 11.5-14.5 PLT (test code=PLT) 361 K/UL 150-450 MPV (test code=MPV) 9.9 FL 7.4-10.4 MANDIFF (test code=MANDIFF) NO SCAN (test code=SCAN) NO NEUT% (test code=NEUT%) 63.0 % 40-75 LYMPH% (test code=LYMPH%) 22.0 % 24-44 MONO% (test code=MONO%) 10.6 % 0-13 EOS% (test code=EOS%) 3.6 % 0-4 BASO % (test code=BASO%) 0.5 % 0-2 IG (test code=IG) 0 % 0-1 IG% (test code=IG%) 0.3 % 0-1 IG%=Metamyelocytes, Myelocytes, and Promyelocytes. (Immature neutrophils not including "bands".) > 3% IG indicates risk of sepsis NRBC% (test code=NRBC%) 0 /100 WBC ABS NEUT (test code=NEUT) 3.7 K/UL 1.2-7.2 WHOLE BLOOD [id number] 20:40:00* Test Item Value Reference Range Comments WHOLE BLOOD GLUCOSE (test code=POC GLU) 167 MG/DL 70-99 WHOLE BLOOD [id number] 17:20:00* Test Item Value Reference Range Comments WHOLE BLOOD GLUCOSE (test code=POC GLU) 121 MG/DL 70-99 VANCOMYCIN [id number] 13:53:00* Test Item Value Reference Range Comments VANCTROU (test code=VANCTROU) 17 UG/ML 10-20 In very rare cases heterophile antibodies may interfere with reagent causing erroneously low results. Any Vancomycin level result that is inconsistent with the clinical presentation should be confirmed with an alternate test method. CULTURE, [id number] 13:09:00* Test Item Value Reference Range Comments Report Text (test code=Report Text) [facility] 2018-11-23 1439 Report Text7 (test code=Report Text7) NO GROWTH WITHIN 24 HOURS Report Text8 (test code=Report Text8) PRELIMINARY REPORT Report Text9 (test code=Report Text9) Report Text10 (test code=Report Text10) [facility] 2018-11-24 957 Report Text11 (test code=Report Text11) NO GROWTH WITHIN 48 HOURS Report Text12 (test code=Report Text12) PRELIMINARY REPORT Report Text13 (test code=Report Text13) Report Text14 (test code=Report Text14) [facility] 2018-11-25 1309 Report Text15 (test code=Report Text15) NO ANAEROBIC GROWTH OBSERVED Report Text16 (test code=Report Text16) FINAL REPORT WHOLE BLOOD [id number] 11:35:00* Test Item Value Reference Range Comments WHOLE BLOOD GLUCOSE (test code=POC GLU) 191 MG/DL 70-99 CULTURE, [id number] 08:53:00* Test Item Value Reference Range Comments CULTABSC (test code=CULTABSC) CULTABSC (test enez=[id number]) [facility] 2018-11-23 1439 GRAM NEGATIVE BACILLI ISOLATED OXIDASE TO FOLLOW PRELIMINARY REPORT [facility] 2018-11-24 957 OXIDASE NEGATIVE GRAM NEGATIVE BACILLI ISOLATED PRELIMINARY REPORT [facility] 2018-11-24 958 ID AND/OR SENSITIVITY TO FOLLOW PRELIMINARY REPORT WHOLE BLOOD GLUCOSE 2018-11-25 08:00:00* Test Item Value Reference Range Comments WHOLE BLOOD GLUCOSE (test code=POC GLU) 84 MG/DL 70-99 [facility], BASIC METABOLIC [id number] 05:47:00* Test Item Value Reference Range Comments SODIUM (test code=NA) 140 MMOL/L 137-145 K+ (test code=KSERUM) 4.4 MMOL/L 3.5-5.1 PLEASE NOTE NEW REFERENCE RANGE(S) IN EFFECT EFFECTIVE 02/06/2010 - NEW ANALYZER (VITROS 5600) CHLORIDE (test code=CL) 96 MMOL/L 98-107 CO2 (test code=CO2) 42 MMOL/L 22-30 BUN (test code=BUN) 16 MG/DL 7-17 CREA (test code=CREA) 0.7 MG/DL 0.7-1.2 GLUCOSE (test code=GLUCOSE) 96 MG/DL 70-99 Fasting glucose normal <100 MG/DL- [place] [employer] recommendation CALCIUM (test code=CABLOOD) 8.3 MG/DL 8.4-10.2 GFR (test code=GFR) 91 mL/min/1.73m2 A GFR of >90 mL/min/1.73m2 is considered normal. RESULTS VERIFIED.C'd TO [facility] ORDONEZ 3S 11-25- [id number] 05:08:00* Test Item Value Reference Range Comments WBC (test code=WBC) 6.3 K/UL 3.5-10.9 RBC (test code=RBC) 3.10 M/UL 4.0-5.0 HGB (test code=HGB) 8.6 G/DL 11.5-15.5 HCT (test code=HCT) 29.4 % 34-46 MCV (test code=MCV) 94.8 FL 80-98 MCH (test code=MCH) 27.7 PG 28-32 MCHC (test code=MCHC) 29.3 G/DL 32.5-36.5 RDW (test code=RDW) 14.6 % 11.5-14.5 PLT (test code=PLT) 371 K/UL 150-450 MPV (test code=MPV) 9.7 FL 7.4-10.4 MANDIFF (test code=MANDIFF) NO SCAN (test code=SCAN) NO NEUT% (test code=NEUT%) 63.5 % 40-75 LYMPH% (test code=LYMPH%) 21.8 % 24-44 MONO% (test code=MONO%) 10.7 % 0-13 EOS% (test code=EOS%) 3.3 % 0-4 BASO % (test code=BASO%) 0.5 % 0-2 IG (test code=IG) 0 % 0-1 IG% (test code=IG%) 0.2 % 0-1 IG%=Metamyelocytes, Myelocytes, and Promyelocytes. (Immature neutrophils not including "bands".) > 3% IG indicates risk of sepsis NRBC% (test code=NRBC%) 0 /100 WBC ABS NEUT (test code=NEUT) 4.0 K/UL 1.2-7.2 WHOLE BLOOD [id number] 20:55:00* Test Item Value Reference Range Comments WHOLE BLOOD GLUCOSE (test code=POC GLU) 153 MG/DL 70-99 WHOLE BLOOD [id number] 18:00:00* Test Item Value Reference Range Comments WHOLE BLOOD GLUCOSE (test code=POC GLU) 146 MG/DL 70-99 BLOOD [id number] 12:32:00* Test Item Value Reference Range Comments Report Text (test code=Report Text) [facility] 2018-11-20 314 Report Text7 (test code=Report Text7) BLOOD CULTURES HELD FOR 5 DAYS BEFORE FINAL Report Text8 (test code=Report Text8) Report Text9 (test code=Report Text9) [employer] SUGGESTS THAT Report Text10 (test code=Report Text10) MOST CASES OF BACTEREMIA ARE DETECTED BY USING Report Text11 (test code=Report Text11) THREE SETS OF SEPARATELY COLLECTED BLOOD CULTURES. Report Text12 (test code=Report Text12) [facility] 2018-11-20 315 Report Text13 (test code=Report Text13) CONVERSELY, A SINGLE BLOOD CULTURE MAY MISS Report Text14 (test code=Report Text14) INTERMITTENTLY OCCURRING BACTEREMIA AND MAKE Report Text15 (test code=Report Text15) IT DIFFICULT TO INTERPRET THE CLINICAL Report Text16 (test code=Report Text16) SIGNIFICANCE OF CERTAIN ISOLATED ORGANISMS. Report Text17 (test code=Report Text17) Report Text18 (test code=Report Text18) [facility] 2018-11-20 316 Report Text19 (test code=Report Text19) COLLECTION SITE UNSPECIFIED Report Text20 (test code=Report Text20) [facility] 2018-11-20 1115 Report Text21 (test code=Report Text21) NO GROWTH WITHIN 1 DAY Report Text22 (test code=Report Text22) PRELIMINARY REPORT Report Text23 (test code=Report Text23) Report Text24 (test code=Report Text24) [facility] 2018-11-21 746 Report Text25 (test code=Report Text25) NO GROWTH WITHIN 2 DAYS Report Text26 (test code=Report Text26) PRELIMINARY REPORT Report Text27 (test code=Report Text27) Report Text28 (test code=Report Text28) [facility] 2018-11-24 1232 Report Text29 (test code=Report Text29) NO GROWTH WITHIN 5 DAYS Report Text30 (test code=Report Text30) FINAL REPORT BLOOD [id number] 12:32:00* Test Item Value Reference Range Comments Report Text (test code=Report Text) [facility] 2018-11-20 314 Report Text7 (test code=Report Text7) BLOOD CULTURES HELD FOR 5 DAYS BEFORE FINAL Report Text8 (test code=Report Text8) Report Text9 (test code=Report Text9) [employer] SUGGESTS THAT Report Text10 (test code=Report Text10) MOST CASES OF BACTEREMIA ARE DETECTED BY USING Report Text11 (test code=Report Text11) THREE SETS OF SEPARATELY COLLECTED BLOOD CULTURES. Report Text12 (test code=Report Text12) [facility] 2018-11-20 315 Report Text13 (test code=Report Text13) CONVERSELY, A SINGLE BLOOD CULTURE MAY MISS Report Text14 (test code=Report Text14) INTERMITTENTLY OCCURRING BACTEREMIA AND MAKE Report Text15 (test code=Report Text15) IT DIFFICULT TO INTERPRET THE CLINICAL Report Text16 (test code=Report Text16) SIGNIFICANCE OF CERTAIN ISOLATED ORGANISMS. Report Text17 (test code=Report Text17) Report Text18 (test code=Report Text18) [facility] 2018-11-20 316 Report Text19 (test code=Report Text19) COLLECTION SITE UNSPECIFIED Report Text20 (test code=Report Text20) [facility] 2018-11-20 1115 Report Text21 (test code=Report Text21) NO GROWTH WITHIN 1 DAY Report Text22 (test code=Report Text22) PRELIMINARY REPORT Report Text23 (test code=Report Text23) Report Text24 (test code=Report Text24) [facility] 2018-11-21 746 Report Text25 (test code=Report Text25) NO GROWTH WITHIN 2 DAYS Report Text26 (test code=Report Text26) PRELIMINARY REPORT Report Text27 (test code=Report Text27) Report Text28 (test code=Report Text28) [facility] 2018-11-24 1232 Report Text29 (test code=Report Text29) NO GROWTH WITHIN 5 DAYS Report Text30 (test code=Report Text30) FINAL REPORT CULTURE, [id number] 11:57:00* Test Item Value Reference Range Comments CULTABSC (test code=CULTABSC) CULTABSC (test ydab=[id number]) [facility] 2018-11-22 1330 GRAM POSITIVE COCCI ISOLATED CATALASE TO FOLLOW PRELIMINARY REPORT [facility] 2018-11-22 1331 GRAM N EGATIVE BACILLI ISOLATED OXIDASE TO FOLLOW PRELIMINARY REPORT [facility] 2018-11-23 1235 ISOLATE #1 PD 2018-11-23 1236 COAGULASE NEGATIVE STAPHYLOCOCCUS ISOLATED CONSIDERED NORMAL SKIN DEISI/CONTAMIN ANT NO SENSITIVITY PERFORMED PD 2018-11-23 1237 ISOLATE #2 PD 2018-11-23 1238 OXIDASE NEGATIVE GRAM NEGATIVE BACILLI ISOLATED PRELIMINARY REPORT [facility] 2018-11-23 1239 ID AND/OR SENSITIVITY TO FOLLOW PRELIMINARY REPORT WHOLE BLOOD [id number] 08:40:00* Test Item Value Reference Range Comments WHOLE BLOOD GLUCOSE (test code=POC GLU) 106 MG/DL 70-99 BMP, BASIC METABOLIC [id number] 04:16:00* Test Item Value Reference Range Comments SODIUM (test code=NA) 138 MMOL/L 137-145 K+ (test code=KSERUM) 4.1 MMOL/L 3.5-5.1 PLEASE NOTE NEW REFERENCE RANGE(S) IN EFFECT EFFECTIVE 02/06/2010 - NEW ANALYZER (VITROS 5600) CHLORIDE (test code=CL) 96 MMOL/L 98-107 CO2 (test code=CO2) 38 MMOL/L 22-30 BUN (test code=BUN) 16 MG/DL 7-17 CREA (test code=CREA) 0.6 MG/DL 0.7-1.2 GLUCOSE (test code=GLUCOSE) 123 MG/DL 70-99 Fasting glucose normal <100 MG/DL- [employer] recommendation CALCIUM (test code=CABLOOD) 7.9 MG/DL 8.4-10.2 GFR (test code=GFR) 108 mL/min/1.73m2 A GFR of >90 mL/min/1.73m2 is considered normal. [id number] 03:45:00* Test Item Value Reference Range Comments WBC (test code=WBC) 5.7 K/UL 3.5-10.9 RBC (test code=RBC) 2.92 M/UL 4.0-5.0 HGB (test code=HGB) 8.1 G/DL 11.5-15.5 HCT (test code=HCT) 27.4 % 34-46 MCV (test code=MCV) 93.8 FL 80-98 MCH (test code=MCH) 27.7 PG 28-32 MCHC (test code=MCHC) 29.6 G/DL 32.5-36.5 RDW (test code=RDW) 14.5 % 11.5-14.5 PLT (test code=PLT) 352 K/UL 150-450 MPV (test code=MPV) 9.6 FL 7.4-10.4 MANDIFF (test code=MANDIFF) NO SCAN (test code=SCAN) NO NEUT% (test code=NEUT%) 62.8 % 40-75 LYMPH% (test code=LYMPH%) 22.6 % 24-44 MONO% (test code=MONO%) 10.8 % 0-13 EOS% (test code=EOS%) 3.0 % 0-4 BASO % (test code=BASO%) 0.4 % 0-2 IG (test code=IG) 0 % 0-1 IG% (test code=IG%) 0.4 % 0-1 IG%=Metamyelocytes, Myelocytes, and Promyelocytes. (Immature neutrophils not including "bands".) > 3% IG indicates risk of sepsis NRBC% (test code=NRBC%) 0 /100 WBC ABS NEUT (test code=NEUT) 3.6 K/UL 1.2-7.2 WHOLE BLOOD [id number] 20:55:00* Test Item Value Reference Range Comments WHOLE BLOOD GLUCOSE (test code=POC GLU) 146 MG/DL 70-99 WHOLE BLOOD [id number] 17:05:00* Test Item Value Reference Range Comments WHOLE BLOOD GLUCOSE (test code=POC GLU) 119 MG/DL 70-99 WHOLE BLOOD [id number] 13:20:00* Test Item Value Reference Range Comments WHOLE BLOOD GLUCOSE (test code=POC GLU) 160 MG/DL 70-99 WHOLE BLOOD [id number] 13:20:00* Test Item Value Reference Range Comments WHOLE BLOOD GLUCOSE (test code=POC GLU) 89 MG/DL 70-99 CHEST 1 VIEW [id number] 10:05:[address] [id number] IMAGING REPORTPatient Name: RONNY VELIZ of Service: 09-15-1129Knn: 58 Sex: F Order #: [id number] [facility] A 2CVUDOB: 1960 X-Ray Number: [id number] Record Number: [id number] Hospital Number: [id number] Physician: DIANE PRATT - Ordering Physician: MIGUEL LAM UPRIGHT PORTABLE CHEST at 0946 hours 11/23/2018:CLINICAL HISTORY: Follow-up study; removal median sternotomy suturesTECHNIQUE: One viewFINDINGS:There are monitor leads seen on the chest.Compared to 11/21/2018 the median sternotomy wires have been removed.The heart is top normal in size with bibasilar atelectasis left muchgreater than right. Small left effusion is also suggested.The upper lungs are clear.Inci dentally noted is previous fixation of lower cervical spine.Electronically Inna d By: Duke Esquivel M.D., 11/23/2018 10:03 AMLegallree authenticated by OLGA Pedro 2018-11-23 10:03:07BMP, BASIC METABOLIC [id number] 03:43:00 * Test Item Value Reference Range Comments SODIUM (test code=NA) 142 MMOL/L 137-145 K+ (test code=KSERUM) 5.3 MMOL/L 3.5-5.1 PLEASE NOTE NEW REFERENCE RANGE(S) IN EFFECT EFFECTIVE 02/06/2010 - NEW ANALYZER (VITROS 5600) CHLORIDE (test code=CL) 102 MMOL/L 98-107 CO2 (test code=CO2) 36 MMOL/L 22-30 BUN (test code=BUN) 14 MG/DL 7-17 CREA (test code=CREA) 0.7 MG/DL 0.7-1.2 GLUCOSE (test code=GLUCOSE) 89 MG/DL 70-99 Fasting glucose normal <100 MG/DL- [employer] recommendation CALCIUM (test code=CABLOOD) 8.4 MG/DL 8.4-10.2 GFR (test code=GFR) 91 mL/min/1.73m2 A GFR of >90 mL/min/1.73m2 is considered normal. [id number] 03:12:00* Test Item Value Reference Range Comments WBC (test code=WBC) 6.3 K/UL 3.5-10.9 RBC (test code=RBC) 3.25 M/UL 4.0-5.0 HGB (test code=HGB) 9.1 G/DL 11.5-15.5 HCT (test code=HCT) 30.9 % 34-46 MCV (test code=MCV) 95.1 FL 80-98 MCH (test code=MCH) 28.0 PG 28-32 MCHC (test code=MCHC) 29.4 G/DL 32.5-36.5 RDW (test code=RDW) 14.5 % 11.5-14.5 PLT (test code=PLT) 354 K/UL 150-450 MPV (test code=MPV) 9.4 FL 7.4-10.4 MANDIFF (test code=MANDIFF) NO SCAN (test code=SCAN) NO NEUT% (test code=NEUT%) 65.9 % 40-75 LYMPH% (test code=LYMPH%) 20.9 % 24-44 MONO% (test code=MONO%) 9.6 % 0-13 EOS% (test code=EOS%) 2.6 % 0-4 BASO % (test code=BASO%) 0.5 % 0-2 IG (test code=IG) 0 % 0-1 IG% (test code=IG%) 0.5 % 0-1 IG%=Metamyelocytes, Myelocytes, and Promyelocytes. (Immature neutrophils not including "bands".) > 3% IG indicates risk of sepsis NRBC% (test code=NRBC%) 0 /100 WBC ABS NEUT (test code=NEUT) 4.1 K/UL 1.2-7.2 WHOLE BLOOD [id number] 20:50:00* Test Item Value Reference Range Comments WHOLE BLOOD GLUCOSE (test code=POC GLU) 89 MG/DL 70-99 GRAM [id number] 17:12:00* Test Item Value Reference Range Comments Report Text (test code=Report Text) [facility] 2018-11-22 1712 Report Text7 (test code=Report Text7) MODERATE WBC SEEN Report Text8 (test code=Report Text8) [facility] 2018-11-22 1713 Report Text9 (test code=Report Text9) NO BACTERIA SEEN WHOLE BLOOD [id number] 16:15:00* Test Item Value Reference Range Comments WHOLE BLOOD GLUCOSE (test code=POC GLU) 104 MG/DL 70-99 WHOLE BLOOD [id number] 16:15:00* Test Item Value Reference Range Comments WHOLE BLOOD GLUCOSE (test code=POC GLU) 109 MG/DL 70-99 BMP, BASIC METABOLIC [id number] 05:42:00* Test Item Value Reference Range Comments SODIUM (test code=NA) 138 MMOL/L 137-145 K+ (test code=KSERUM) 4.2 MMOL/L 3.5-5.1 PLEASE NOTE NEW REFERENCE RANGE(S) IN EFFECT EFFECTIVE 02/06/2010 - NEW ANALYZER (Banter! 5600) CHLORIDE (test code=CL) 103 MMOL/L 98-107 CO2 (test code=CO2) 30 MMOL/L 22-30 BUN (test code=BUN) 16 MG/DL 7-17 CREA (test code=CREA) 0.5 MG/DL 0.7-1.2 GLUCOSE (test code=GLUCOSE) 131 MG/DL 70-99 Fasting glucose normal <100 MG/DL- [employer] recommendation CALCIUM (test code=CABLOOD) 8.1 MG/DL 8.4-10.2 GFR (test code=GFR) 134 mL/min/1.73m2 A GFR of >90 mL/min/1.73m2 is considered normal. [id number] 05:42:00* Test Item Value Reference Range Comments WBC (test code=WBC) 5.8 K/UL 3.5-10.9 RBC (test code=RBC) 3.05 M/UL 4.0-5.0 HGB (test code=HGB) 8.5 G/DL 11.5-15.5 HCT (test code=HCT) 27.6 % 34-46 MCV (test code=MCV) 90.5 FL 80-98 MCH (test code=MCH) 27.9 PG 28-32 MCHC (test code=MCHC) 30.8 G/DL 32.5-36.5 RDW (test code=RDW) 14.6 % 11.5-14.5 PLT (test code=PLT) 375 K/UL 150-450 MPV (test code=MPV) 9.6 FL 7.4-10.4 MANDIFF (test code=MANDIFF) NO SCAN (test code=SCAN) NO NEUT% (test code=NEUT%) 63.1 % 40-75 LYMPH% (test code=LYMPH%) 22.1 % 24-44 MONO% (test code=MONO%) 11.2 % 0-13 EOS% (test code=EOS%) 2.8 % 0-4 BASO % (test code=BASO%) 0.3 % 0-2 IG (test code=IG) 0 % 0-1 IG% (test code=IG%) 0.5 % 0-1 IG%=Metamyelocytes, Myelocytes, and Promyelocytes. (Immature neutrophils not including "bands".) > 3% IG indicates risk of sepsis NRBC% (test code=NRBC%) 0 /100 WBC ABS NEUT (test code=NEUT) 3.6 K/UL 1.2-7.2 PROTHROMBIN TIME WITH [id number] 05:37:00* Test Item Value Reference Range Comments PROTHROMBIN TIME (test code=PT) 13.7 SECONDS 12.0-14.6 INR Usual Range=2 to 3 for prevention of deep vein thrombosis (DVT) INR (test code=INR) 1.1 [id number] 05:37:00* Test Item Value Reference Range Comments PTT (test code=PTT) 34.1 SECONDS 24.4-36.3 HEPARIN THERAPEUTIC RANGE 57-92 SECONDS WHOLE BLOOD [id number] 20:50:00* Test Item Value Reference Range Comments WHOLE BLOOD GLUCOSE (test code=POC GLU) 180 MG/DL 70-99 WHOLE BLOOD [id number] 16:40:00* Test Item Value Reference Range Comments WHOLE BLOOD GLUCOSE (test code=POC GLU) 174 MG/DL 70-99 VANCOMYCIN [id number] 16:31:00* Test Item Value Reference Range Comments VANCTROU (test code=VANCTROU) 10 UG/ML 10-20 In very rare cases heterophile antibodies may interfere with reagent causing erroneously low results. Any Vancomycin level result that is inconsistent with the clinical presentation should be confirmed with an alternate test method. GRAM [id number] 12:57:00* Test Item Value Reference Range Comments Report Text (test code=Report Text) B 2018-11-21 1257 Report Text7 (test code=Report Text7) MODERATE WBC SEEN Report Text8 (test code=Report Text8) [facility] 2018-11-21 1258 Report Text9 (test code=Report Text9) NO BACTERIA SEEN WHOLE BLOOD [id number] 11:15:00* Test Item Value Reference Range Comments WHOLE BLOOD GLUCOSE (test code=POC GLU) 125 MG/DL 70-99 [id number] 07:38:00* Test Item Value Reference Range Comments WBC (test code=WBC) 6.4 K/UL 3.5-10.9 RBC (test code=RBC) 3.31 M/UL 4.0-5.0 HGB (test code=HGB) 9.1 G/DL 11.5-15.5 HCT (test code=HCT) 30.5 % 34-46 MCV (test code=MCV) 92.1 FL 80-98 MCH (test code=MCH) 27.5 PG 28-32 MCHC (test code=MCHC) 29.8 G/DL 32.5-36.5 RDW (test code=RDW) 14.4 % 11.5-14.5 PLT (test code=PLT) 411 K/UL 150-450 MPV (test code=MPV) 9.6 FL 7.4-10.4 MANDIFF (test code=MANDIFF) NO SCAN (test code=SCAN) NO NEUT% (test code=NEUT%) 66.6 % 40-75 LYMPH% (test code=LYMPH%) 19.5 % 24-44 MONO% (test code=MONO%) 9.9 % 0-13 EOS% (test code=EOS%) 3.0 % 0-4 BASO % (test code=BASO%) 0.5 % 0-2 IG (test code=IG) 0 % 0-1 IG% (test code=IG%) 0.5 % 0-1 IG%=Metamyelocytes, Myelocytes, and Promyelocytes. (Immature neutrophils not including "bands".) > 3% IG indicates risk of sepsis NRBC% (test code=NRBC%) 0 /100 WBC ABS NEUT (test code=NEUT) 4.2 K/UL 1.2-7.2 BMP, BASIC METABOLIC [id number] 07:34:00* Test Item Value Reference Range Comments SODIUM (test code=NA) 141 MMOL/L 137-145 K+ (test code=KSERUM) 5.0 MMOL/L 3.5-5.1 PLEASE NOTE NEW REFERENCE RANGE(S) IN EFFECT EFFECTIVE 02/06/2010 - NEW ANALYZER (nPickerS 5600) CHLORIDE (test code=CL) 104 MMOL/L 98-107 CO2 (test code=CO2) 31 MMOL/L 22-30 BUN (test code=BUN) 12 MG/DL 7-17 CREA (test code=CREA) 0.6 MG/DL 0.7-1.2 GLUCOSE (test code=GLUCOSE) 118 MG/DL 70-99 Fasting glucose normal <100 MG/DL- [place] recommendation CALCIUM (test code=CABLOOD) 8.4 MG/DL 8.4-10.2 GFR (test code=GFR) 108 mL/min/1.73m2 A GFR of >90 mL/min/1.73m2 is considered normal. WHOLE BLOOD [id number] 07:30:00* Test Item Value Reference Range Comments WHOLE BLOOD GLUCOSE (test code=POC GLU) 119 MG/DL 70-99 CHEST 1 VIEW [id number] 07:30:[address] [id number] IMAGING REPORTPatient Name: RONNY VELIZ Apolinar of Service: [id number]: 58 Sex: F Order #: [id number] Room: 538/ B 5NDOB: 1960 X-Ray Number: [id number] Record Number: [id number] Hospital Number: [id number] Physician: DIANE PRATT - Ordering Physician: FIDE BHANDARI -Chest:11/21/2018 6:48 AMHistory: Postop.Technique: Single AP chest projection.Comparison:November 20, 2018.Findings:Upper limits of normal heart size and strandy bibasilar subsegmen talatelectatic changes, unchanged. Prior sternotomy.Impression:No interval sharma eAliceElectronically Signed By: Chauncey Hayden M.D., 11/21/2018 7:28 AMLegally au thenticated by WANDA Gonzalez 2018-11-21 07:28:02PROTHROMBIN TIME WITH INR 2018-11-21 07:14:00* Test Item Value Reference Range Comments PROTHROMBIN TIME (test code=PT) 15.5 SECONDS 12.0-14.6 TRENDED INR Usual Range=2 to 3 for prevention of deep vein thrombosis (DVT) INR (test code=INR) 1.2 [id number] 07:02:00* Test Item Value Reference Range Comments PTT (test code=PTT) 29.3 SECONDS 24.4-36.3 HEPARIN THERAPEUTIC RANGE 57-92 SECONDS WHOLE BLOOD [id number] 22:20:00* Test Item Value Reference Range Comments WHOLE BLOOD GLUCOSE (test code=POC GLU) 137 MG/DL 70-99 WHOLE BLOOD [id number] 19:35:00* Test Item Value Reference Range Comments WHOLE BLOOD GLUCOSE (test code=POC GLU) 179 MG/DL 70-99 WHOLE BLOOD [id number] 19:35:00* Test Item Value Reference Range Comments WHOLE BLOOD GLUCOSE (test code=POC GLU) 215 MG/DL 70-99 WHOLE BLOOD [id number] 19:35:00* Test Item Value Reference Range Comments WHOLE BLOOD GLUCOSE (test code=POC GLU) 157 MG/DL 70-99 CT THORAX [id number] 10:51:[address] [id number] IMAGING REPORTPatient Name: RONNY VELIZ of Service: 14-07-7912Wio: 58 Sex: F Order #: [id number] [facility] 1960 [facility] Number: [id number] Record Number: [id number] Hospital Number: [id number] Physician: Kadeem WOODWARDing Physician: Kelly CHEN CT chest with IV contrast 11/20/2018History: Post CABG and October 2018 now with redness and swelling at theincision siteComparison: Same day chest x-ray and prior CT of 10/20/2018This CT exam was performed using one or more of the following dosereduction techniques: Automated exposure control, adjustment of the mAand/or kV according to patient size, or use of iterative reconstructiontechnique.Contrast administered for this study per protocol: Isovue 300 - 100 mL IVThere is evidence of prior median sternotomy. Sternal fragments are stillseparated by up to 1 cm. The inferior and mid sternotomy fixation wires arefractured.Abnormal fluid and air in subcutaneous soft tissues along the upper aspectof the sternum appear to extend into the defect measuring up to 6.8 cm AP x3.7 cm transverse x 10 cm CC.Fat stranding and possible fluid are also seen in the mediastinum behindthe sternum measuring up to 5 cm transverse x 1.2 cm AP. No definitive fociof air are noted within the mediastinal collection.Heart size is stable. There is mild anterior pericardial thickening versusfluid. Vascular enhancement is within normal limits.Minimal lef t posterior pleural effusion is identified. Minimal atelectasisis scattered in t he lung bases. No pneumothorax.Visualized portions of the upper abdomen are stab le.IMPRESSION:Separation of mediastinal bone fragments post median sternotomy.Ab normal air and fluid collection in subcutaneous soft tissues superficialto and e xtending into the sternotomy defect. Findings are suspicious forabscess until pr oven otherwise.Anterior mediastinal fat stranding and apparent fluid as discusse d. Again,infection in this region is not excluded.Other findings as described.Th e study was performed on an emergent basis and preliminary report faxedto the Em ergency Department by the [facility] service nearthe time of the e xam.Electronically Signed By: Delmar Cristobal M.D., 11/20/2018 10:49 AMLegally authen ticated by ISIDRO AGUILAR 2018-11-20 10:49:28CHEST 1 VIEW [id number] 07:13:00[address] [id number] IMAGING REPORTPatient Name: RONNY VELIZ of Service: [id number]: 60 Sex: F Order #: [id number] [facility] 1960 X- Ray Number: [id number] Record Number: [id number] Hospital Number: [id number] Physician: PENG WOODWARDOrdering Physician: JUMA CHEN ONE VIEW 11/20/2018HISTORY: Recent CABG, incision site swelling and redness, CADCOMPARISON: 10/27/2018Median sternotomy changes are again evident. Sternal wires are fractured.Cardiac, hilar, and mediastinal structures are stable.Lungs show increased interstitial markings which may be due to chronicchanges or mild edema. Linear densities at the lung bases are persistent.Findings may be due to atelectasis, scarring or pneumonia. No effusion orpneumothorax.No acute bony or soft tissue abnormalities are identified. Postsurgicalchanges of the neck are stable.IMPRESSION:Persistently increased pulmonary markings as discussed.The study was performed on an emergent basis and preliminary report faxedto the Emergency Department by the [facility] nearthe time of the exam.Electronically Signed By: Delmar Cristobal M.D., 11/20/2018 7:10 AMLegallree authenticated by ISIDRO AGUILAR 2018-11-20 07:10:[id number] 03:35:00* Test Item Value Reference Range Comments BLOOD TYPE (test code=TYPE) A Rh Positive ANTIBODY SCREEN (test code=SCREEN) NEGATIVE NEGATIVE [id number] 23:19:00* Test Item Value Reference Range Comments SODIUM (test code=NA) 140 MMOL/L 137-145 K+ (test code=KSERUM) 4.6 MMOL/L 3.5-5.1 PLEASE NOTE NEW REFERENCE RANGE(S) IN EFFECT EFFECTIVE 02/06/2010 - NEW ANALYZER (VITROS 5600) CHLORIDE (test code=CL) 101 MMOL/L 98-107 CO2 (test code=CO2) 29 MMOL/L 22-30 BUN (test code=BUN) 16 MG/DL 7-17 CREA (test code=CREA) 0.6 MG/DL 0.7-1.2 GLUCOSE (test code=GLUCOSE) 200 MG/DL 70-99 Fasting glucose normal <100 MG/DL- [employer] recommendation CALCIUM (test code=CABLOOD) 8.8 MG/DL 8.4-10.2 TOTPROT (test code=TOTPROT) 6.7 G/DL 6.3-8.2 ALBUMIN (test code=ALBSERUM) 3.3 G/DL 3.5-5.0 BILITOT (test code=BILITOT) 0.3 MG/DL 0.2-1.3 AST (test code=AST) 9 U/L 15-46 PHOSALK (test code=PHOSALK) 132 U/L 38-126 ALT (test code=ALT) 16 U/L 13-69 GFR (test code=GFR) 108 mL/min/1.73m2 A GFR of >90 mL/min/1.73m2 is considered normal. PROTHROMBIN TIME WITH [id number] 23:15:00* Test Item Value Reference Range Comments PROTHROMBIN TIME (test code=PT) 14.5 SECONDS 12.0-14.6 INR Usual Range=2 to 3 for prevention of deep vein thrombosis (DVT) INR (test code=INR) 1.1 [id number] 23:15:00* Test Item Value Reference Range Comments PTT (test code=PTT) 32.8 SECONDS 24.4-36.3 HEPARIN THERAPEUTIC RANGE 57-92 SECONDS [id number] 23:07:00* Test Item Value Reference Range Comments WBC (test code=WBC) 8.8 K/UL 3.5-10.9 RBC (test code=RBC) 3.76 M/UL 4.0-5.0 HGB (test code=HGB) 10.6 G/DL 11.5-15.5 HCT (test code=HCT) 33.7 % 34-46 MCV (test code=MCV) 89.6 FL 80-98 MCH (test code=MCH) 28.2 PG 28-32 MCHC (test code=MCHC) 31.5 G/DL 32.5-36.5 RDW (test code=RDW) 14.1 % 11.5-14.5 PLT (test code=PLT) 461 K/UL 150-450 MPV (test code=MPV) 9.6 FL 7.4-10.4 MANDIFF (test code=MANDIFF) NO SCAN (test code=SCAN) NO NEUT% (test code=NEUT%) 74.2 % 40-75 LYMPH% (test code=LYMPH%) 13.8 % 24-44 MONO% (test code=MONO%) 8.5 % 0-13 EOS% (test code=EOS%) 2.4 % 0-4 BASO % (test code=BASO%) 0.3 % 0-2 IG (test code=IG) 0 % 0-1 IG% (test code=IG%) 0.8 % 0-1 IG%=Metamyelocytes, Myelocytes, and Promyelocytes. (Immature neutrophils not including "bands".) > 3% IG indicates risk of sepsis NRBC% (test code=NRBC%) 0 /100 WBC ABS NEUT (test code=NEUT) 6.5 K/UL 1.2-7.2 WHOLE BLOOD [id number] 09:35:00* Test Item Value Reference Range Comments WHOLE BLOOD GLUCOSE (test code=POC GLU) 210 MG/DL 70-99 WHOLE BLOOD [id number] 12:45:00* Test Item Value Reference Range Comments WHOLE BLOOD GLUCOSE (test code=POC GLU) 133 MG/DL 70-99 WHOLE BLOOD [id number] 22:25:00* Test Item Value Reference Range Comments WHOLE BLOOD GLUCOSE (test code=POC GLU) 135 MG/DL 70-99 WHOLE BLOOD [id number] 15:25:00* Test Item Value Reference Range Comments WHOLE BLOOD GLUCOSE (test code=POC GLU) 169 MG/DL 70-99 WHOLE BLOOD [id number] 11:30:00* Test Item Value Reference Range Comments WHOLE BLOOD GLUCOSE (test code=POC GLU) 166 MG/DL 70-99 WHOLE BLOOD [id number] 08:00:00* Test Item Value Reference Range Comments WHOLE BLOOD GLUCOSE (test code=POC GLU) 149 MG/DL 70-99 WHOLE BLOOD [id number] 21:50:00* Test Item Value Reference Range Comments WHOLE BLOOD GLUCOSE (test code=POC GLU) 228 MG/DL 70-99 WHOLE BLOOD [id number] 16:55:00* Test Item Value Reference Range Comments WHOLE BLOOD GLUCOSE (test code=POC GLU) 151 MG/DL 70-99 WHOLE BLOOD [id number] 12:30:00* Test Item Value Reference Range Comments WHOLE BLOOD GLUCOSE (test code=POC GLU) 184 MG/DL 70-99 WHOLE BLOOD [id number] 08:00:00* Test Item Value Reference Range Comments WHOLE BLOOD GLUCOSE (test code=POC GLU) 94 MG/DL 70-99 WHOLE BLOOD [id number] 21:10:00* Test Item Value Reference Range Comments WHOLE BLOOD GLUCOSE (test code=POC GLU) 182 MG/DL 70-99 WHOLE BLOOD [id number] 16:40:00* Test Item Value Reference Range Comments WHOLE BLOOD GLUCOSE (test code=POC GLU) 167 MG/DL 70-99 WHOLE BLOOD [id number] 12:25:00* Test Item Value Reference Range Comments WHOLE BLOOD GLUCOSE (test code=POC GLU) 126 MG/DL 70-99 WHOLE BLOOD [id number] 09:00:00* Test Item Value Reference Range Comments WHOLE BLOOD GLUCOSE (test code=POC GLU) 122 MG/DL 70-99 WHOLE BLOOD [id number] 09:00:00* Test Item Value Reference Range Comments WHOLE BLOOD GLUCOSE (test code=POC GLU) 67 MG/DL 70-99 WHOLE BLOOD [id number] 22:10:00* Test Item Value Reference Range Comments WHOLE BLOOD GLUCOSE (test code=POC GLU) 139 MG/DL 70-99 WHOLE BLOOD [id number] 22:10:00* Test Item Value Reference Range Comments WHOLE BLOOD GLUCOSE (test code=POC GLU) 144 MG/DL 70-99 WHOLE BLOOD [id number] 17:20:00* Test Item Value Reference Range Comments WHOLE BLOOD GLUCOSE (test code=POC GLU) 115 MG/DL 70-99 WHOLE BLOOD [id number] 12:00:00* Test Item Value Reference Range Comments WHOLE BLOOD GLUCOSE (test code=POC GLU) 188 MG/DL 70-99 WHOLE BLOOD [id number] 08:25:00* Test Item Value Reference Range Comments WHOLE BLOOD GLUCOSE (test code=POC GLU) 85 MG/DL 70-99 CHEST 1 [id number] 08:06:[address] [id number] IMAGING REPORTPatient Name: RONNY VELIZ of Service: [id number]: 58 Sex: F Order #: [id number] Room: [facility] 3SDOB: 1960 X-Ray Number: [id number] Record Number: [id number] Hospital Number: [id number] Physician: DIANE PRATT -Ordering Physician: JOSIAH LAM ONE VIEW 10/27/2018HISTORY: CAD, COPDCOMPARISON: 10/17/2018There has been previous median sternotomy.Cardiac, hilar, and mediastinal structures are stable with heart size atupper limits of normal. Central pulmonary vascular prominence ispersistent. There are patchy densities at both lung bases consistent withatelectasis versus pneumonia. Findings have not improved. No new bony orsoft tissue abnormalities are identified.IMPRESSION:Persistent pulmonary densities as discussed.Electronically Signed By: Delmar Cristobal M.D., 10/27/2018 8:04 AMLegally authenticated by ISIDRO AGUILAR 2018-10-27 08:04:[id number] 06:10:00* Test Item Value Reference Range Comments WBC (test code=WBC) 5.8 K/UL 3.5-10.9 RBC (test code=RBC) 3.60 M/UL 4.0-5.0 HGB (test code=HGB) 10.4 G/DL 11.5-15.5 HCT (test code=HCT) 34.2 % 34-46 MCV (test code=MCV) 95.0 FL 80-98 MCH (test code=MCH) 28.9 PG 28-32 MCHC (test code=MCHC) 30.4 G/DL 32.5-36.5 RDW (test code=RDW) 14.6 % 11.5-14.5 PLT (test code=PLT) 506 K/UL 150-450 MPV (test code=MPV) 10.1 FL 7.4-10.4 MANDIFF (test code=MANDIFF) NO SCAN (test code=SCAN) NO NEUT% (test code=NEUT%) 54.9 % 40-75 LYMPH% (test code=LYMPH%) 30.1 % 24-44 MONO% (test code=MONO%) 11.4 % 0-13 EOS% (test code=EOS%) 2.8 % 0-4 BASO % (test code=BASO%) 0.5 % 0-2 IG (test code=IG) 0 % 0-1 IG% (test code=IG%) 0.3 % 0-1 IG%=Metamyelocytes, Myelocytes, and Promyelocytes. (Immature neutrophils not including "bands".) > 3% IG indicates risk of sepsis NRBC% (test code=NRBC%) 0 /100 WBC ABS NEUT (test code=NEUT) 3.2 K/UL 1.2-7.2 WHOLE BLOOD [id number] 03:45:00* Test Item Value Reference Range Comments WHOLE BLOOD GLUCOSE (test code=POC GLU) 155 MG/DL - WHOLE BLOOD [id number] 16:45:00* Test Item Value Reference Range Comments WHOLE BLOOD GLUCOSE (test code=POC GLU) 171 MG/DL -99 WHOLE BLOOD [id number] 14:25:00* Test Item Value Reference Range Comments WHOLE BLOOD GLUCOSE (test code=POC GLU) 124 MG/DL 70-99 [id number] 11:24:00HEART RATE: 70 bpmRR Interval: 857 msAtrial Rate: 71 msP-R Interval: 164 msP Duration: 123 msP Horizontal Allen: 5 degP Front Allen: 46 degQ Onset: 506 msQRSD Interval: 82 msQT Interval: 465 msQTcB: 502 msQTcF: 490 msQRS Horizontal Allen: -32 degQRS Allen: 50 degI-40 Horizontal Allen: -7 degI-40 Front Allen: 43 degT-40 Horizontal Allen: -47 degT-40 Front Allen: 43 degT Horizontal Allen: 263 degT Wave Allen: 33 degS-T Horizontal Allen: 183 degS-T Front Allen: -84 degECG Severity: - ABNORMAL ECG -ECG Impression: Sinus rhythmECG Impression: Anteroseptal infarct, age [id number] 11:24:00HEART RATE: 144 bpmRR Interval: 417 msAtrial Rate: 144 msP-R Interval: 95 msP Duration: 69 msP Horizontal Allen: -16 degP Front Allen: 0 degQ Onset: 507 msQRSD Interval: 132 msQT Interval: 375 msQTcB: 581 msQTcF: 502 msQRS Horizontal Allen: 85 degQRS Allen: 96 degI-40 Horizontal Allen: 44 degI-40 Front Allen: 204 degT-40 Horizontal Allen: 112 degT-40 Front Allen: 169 degT Horizontal Allen: -38 degT Wave Allen: 10 degS-T Horizontal Allen: -60 degS-T Front Allen: -8 degECG Severity: - ABNORMAL ECG -ECG Impression: Sinus tachycardiaECG Impression: RBBB and [id number] 11:24:00HEART RATE: 117 bpmRR Interval: 513 msAtrial Rate: 117 msP-R Interval: 124 msP Duration: 95 msP Horizontal Allen: -9 degP Front Allen: 57 degQ Onset: 503 msQRSD Interval: 73 msQT Interval: 395 msQTcB: 551 msQTcF: 493 msQRS Horizontal Allen: -34 degQRS Allen: 23 degI-40 Horizontal Allen: 6 degI-40 Front Allen: 32 degT-40 Horizontal Allen: -55 degT-40 Front Allen: 19 degT Horizontal Allen: 33 degT Wave Allen: 44 degS-T Horizontal Allen: 113 degS-T Front Allen: 171 degECG Severity: - ABNORMAL ECG -ECG Impression: Sinus tachycardiaECG Impression: Prolonged QT intervalWHOLE BLOOD [id number] 08:10:00* Test Item Value Reference Range Comments WHOLE BLOOD GLUCOSE (test code=POC GLU) 127 MG/DL 70-99 BMP, BASIC METABOLIC [id number] 05:47:00* Test Item Value Reference Range Comments SODIUM (test code=NA) 140 MMOL/L 137-145 K+ (test code=KSERUM) 4.5 MMOL/L 3.5-5.1 PLEASE NOTE NEW REFERENCE RANGE(S) IN EFFECT EFFECTIVE 02/06/2010 - NEW ANALYZER (nPickerS 5600) CHLORIDE (test code=CL) 98 MMOL/L 98-107 CO2 (test code=CO2) 31 MMOL/L 22-30 BUN (test code=BUN) 19 MG/DL 7-17 CREA (test code=CREA) 0.7 MG/DL 0.7-1.2 GLUCOSE (test code=GLUCOSE) 161 MG/DL 70-99 Fasting glucose normal <100 MG/DL- [employer] recommendation CALCIUM (test code=CABLOOD) 8.8 MG/DL 8.4-10.2 GFR (test code=GFR) 91 mL/min/1.73m2 A GFR of >90 mL/min/1.73m2 is considered normal. [id number] 05:47:00* Test Item Value Reference Range Comments MG (test code=MG) 1.8 mg/dL 1.6-2.3 WHOLE BLOOD [id number] 21:25:00* Test Item Value Reference Range Comments WHOLE BLOOD GLUCOSE (test code=POC GLU) 144 MG/DL WHOLE BLOOD [id number] 17:10:00* Test Item Value Reference Range Comments WHOLE BLOOD GLUCOSE (test code=POC GLU) 157 MG/DL WHOLE BLOOD [id number] 11:25:00* Test Item Value Reference Range Comments WHOLE BLOOD GLUCOSE (test code=POC GLU) 167 MG/DL - BMP, BASIC METABOLIC [id number] 10:38:00* Test Item Value Reference Range Comments SODIUM (test code=NA) 140 MMOL/L 137-145 K+ (test code=KSERUM) 3.7 MMOL/L 3.5-5.1 PLEASE NOTE NEW REFERENCE RANGE(S) IN EFFECT EFFECTIVE 02/06/2010 - NEW ANALYZER (nPickerS 5600) CHLORIDE (test code=CL) 97 MMOL/L 98-107 CO2 (test code=CO2) 35 MMOL/L 22-30 BUN (test code=BUN) 21 MG/DL 7-17 CREA (test code=CREA) 0.6 MG/DL 0.7-1.2 GLUCOSE (test code=GLUCOSE) 124 MG/DL 70-99 Fasting glucose normal <100 MG/DL- [employer] recommendation CALCIUM (test code=CABLOOD) 8.9 MG/DL 8.4-10.2 GFR (test code=GFR) 108 mL/min/1.73m2 A GFR of >90 mL/min/1.73m2 is considered normal. [id number] 10:38:00* Test Item Value Reference Range Comments MG (test code=MG) 1.8 mg/dL 1.6-2.3 WHOLE BLOOD [id number] 07:30:00* Test Item Value Reference Range Comments WHOLE BLOOD GLUCOSE (test code=POC GLU) 133 MG/DL 70-99 [id number] 07:03:00* Test Item Value Reference Range Comments WBC (test code=WBC) 9.7 K/UL 3.5-10.9 RBC (test code=RBC) 3.98 M/UL 4.0-5.0 HGB (test code=HGB) 11.5 G/DL 11.5-15.5 HCT (test code=HCT) 38.8 % 34-46 MCV (test code=MCV) 97.5 FL 80-98 MCH (test code=MCH) 28.9 PG 28-32 MCHC (test code=MCHC) 29.6 G/DL 32.5-36.5 RDW (test code=RDW) 15.0 % 11.5-14.5 PLT (test code=PLT) 677 K/UL 150-450 MPV (test code=MPV) 10.3 FL 7.4-10.4 MANDIFF (test code=MANDIFF) NO SCAN (test code=SCAN) NO NEUT% (test code=NEUT%) 67.7 % 40-75 LYMPH% (test code=LYMPH%) 19.4 % 24-44 MONO% (test code=MONO%) 9.3 % 0-13 EOS% (test code=EOS%) 2.6 % 0-4 BASO % (test code=BASO%) 0.5 % 0-2 IG (test code=IG) 0 % 0-1 IG% (test code=IG%) 0.5 % 0-1 IG%=Metamyelocytes, Myelocytes, and Promyelocytes. (Immature neutrophils not including "bands".) > 3% IG indicates risk of sepsis NRBC% (test code=NRBC%) 0 /100 WBC ABS NEUT (test code=NEUT) 6.6 K/UL 1.2-7.2 WHOLE BLOOD [id number] 21:40:00* Test Item Value Reference Range Comments WHOLE BLOOD GLUCOSE (test code=POC GLU) 138 MG/DL 70-99 WHOLE BLOOD [id number] 16:00:00* Test Item Value Reference Range Comments WHOLE BLOOD GLUCOSE (test code=POC GLU) 195 MG/DL 70-99 WHOLE BLOOD [id number] 11:35:00* Test Item Value Reference Range Comments WHOLE BLOOD GLUCOSE (test code=POC GLU) 115 MG/DL 70-99 WHOLE BLOOD [id number] 07:45:00* Test Item Value Reference Range Comments WHOLE BLOOD GLUCOSE (test code=POC GLU) 102 MG/DL 70-99 WHOLE BLOOD [id number] 22:10:00* Test Item Value Reference Range Comments WHOLE BLOOD GLUCOSE (test code=POC GLU) 242 MG/DL 70-99 WHOLE BLOOD [id number] 17:40:00* Test Item Value Reference Range Comments WHOLE BLOOD GLUCOSE (test code=POC GLU) 148 MG/DL 70-99 WHOLE BLOOD [id number] 12:35:00* Test Item Value Reference Range Comments WHOLE BLOOD GLUCOSE (test code=POC GLU) 144 MG/DL 70-99 WHOLE BLOOD [id number] 08:20:00* Test Item Value Reference Range Comments WHOLE BLOOD GLUCOSE (test code=POC GLU) 70 MG/DL 70-99 WHOLE BLOOD [id number] 21:05:00* Test Item Value Reference Range Comments WHOLE BLOOD GLUCOSE (test code=POC GLU) 111 MG/DL 70-99 WHOLE BLOOD [id number] 16:30:00* Test Item Value Reference Range Comments WHOLE BLOOD GLUCOSE (test code=POC GLU) 132 MG/DL 70-99 WHOLE BLOOD [id number] 12:30:00* Test Item Value Reference Range Comments WHOLE BLOOD GLUCOSE (test code=POC GLU) 96 MG/DL 70-99 WHOLE BLOOD [id number] 08:25:00* Test Item Value Reference Range Comments WHOLE BLOOD GLUCOSE (test code=POC GLU) 72 MG/DL 70-99 BLOOD [id number] 07:00:00* Test Item Value Reference Range Comments Report Text (test code=Report Text) [facility] 2018-10-17 2149 Report Text7 (test code=Report Text7) BLOOD CULTURES HELD FOR 5 DAYS BEFORE FINAL Report Text8 (test code=Report Text8) Report Text9 (test code=Report Text9) [employer] SUGGESTS THAT Report Text10 (test code=Report Text10) MOST CASES OF BACTEREMIA ARE DETECTED BY USING Report Text11 (test code=Report Text11) THREE SETS OF SEPARATELY COLLECTED BLOOD CULTURES. Report Text12 (test code=Report Text12) [facility] 2018-10-172149 Report Text13 (test code=Report Text13) CONVERSELY, A SINGLE BLOOD CULTURE MAY MISS Report Text14 (test code=Report Text14) INTERMITTENTLY OCCURRING BACTEREMIA AND MAKE Report Text15 (test code=Report Text15) IT DIFFICULT TO INTERPRET THE CLINICAL Report Text16 (test code=Report Text16) SIGNIFICANCE OF CERTAIN ISOLATED ORGANISMS. Report Text17 (test code=Report Text17) Report Text18 (test code=Report Text18) [facility] 2018-10-172150 Report Text19 (test code=Report Text19) DRAWN FROM LEFT ANTICUBITAL VEIN Report Text20 (test code=Report Text20) Report Text21 (test code=Report Text21) [facility] 2018-10-18 721 Report Text22 (test code=Report Text22) NO GROWTH WITHIN 1 DAY Report Text23 (test code=Report Text23) PRELIMINARY REPORT Report Text24 (test code=Report Text24) Report Text25 (test code=Report Text25) [facility] 2018-10-19 654 Report Text26 (test code=Report Text26) NO GROWTH WITHIN 2 DAYS Report Text27 (test code=Report Text27) PRELIMINARY REPORT Report Text28 (test code=Report Text28) Report Text29 (test code=Report Text29) [facility] 2018-10-22 700 Report Text30 (test code=Report Text30) NO GROWTH WITHIN 5 DAYS Report Text31 (test code=Report Text31) FINAL REPORT BLOOD [id number] 07:00:00* Test Item Value Reference Range Comments Report Text (test code=Report Text) [facility] 2018-10-172149 Report Text7 (test code=Report Text7) BLOOD CULTURES HELD FOR 5 DAYS BEFORE FINAL Report Text8 (test code=Report Text8) Report Text9 (test code=Report Text9) [employer] SUGGESTS THAT Report Text10 (test code=Report Text10) MOST CASES OF BACTEREMIA ARE DETECTED BY USING Report Text11 (test code=Report Text11) THREE SETS OF SEPARATELY COLLECTED BLOOD CULTURES. Report Text12 (test code=Report Text12) [facility] 2018-10-172150 Report Text13 (test code=Report Text13) CONVERSELY, A SINGLE BLOOD CULTURE MAY MISS Report Text14 (test code=Report Text14) INTERMITTENTLY OCCURRING BACTEREMIA AND MAKE Report Text15 (test code=Report Text15) IT DIFFICULT TO INTERPRET THE CLINICAL Report Text16 (test code=Report Text16) SIGNIFICANCE OF CERTAIN ISOLATED ORGANISMS. Report Text17 (test code=Report Text17) Report Text18 (test code=Report Text18) [facility] 2018-10-172151 Report Text19 (test code=Report Text19) DRAWN FROM LEFT ANTICUBITAL VEIN Report Text20 (test code=Report Text20) Report Text21 (test code=Report Text21) [facility] 2018-10-18 721 Report Text22 (test code=Report Text22) NO GROWTH WITHIN 1 DAY Report Text23 (test code=Report Text23) PRELIMINARY REPORT Report Text24 (test code=Report Text24) Report Text25 (test code=Report Text25) [facility] 2018-10-19 654 Report Text26 (test code=Report Text26) NO GROWTH WITHIN 2 DAYS Report Text27 (test code=Report Text27) PRELIMINARY REPORT Report Text28 (test code=Report Text28) Report Text29 (test code=Report Text29) [facility] 2018-10-22 700 Report Text30 (test code=Report Text30) NO GROWTH WITHIN 5 DAYS Report Text31 (test code=Report Text31) FINAL REPORT [id number] 06:33:00* Test Item Value Reference Range Comments WBC (test code=WBC) 10.8 K/UL 3.5-10.9 RBC (test code=RBC) 3.80 M/UL 4.0-5.0 HGB (test code=HGB) 11.3 G/DL 11.5-15.5 HCT (test code=HCT) 36.0 % 34-46 MCV (test code=MCV) 94.7 FL 80-98 MCH (test code=MCH) 29.7 PG 28-32 MCHC (test code=MCHC) 31.4 G/DL 32.5-36.5 RDW (test code=RDW) 15.4 % 11.5-14.5 PLT (test code=PLT) 507 K/UL 150-450 MPV (test code=MPV) 11.3 FL 7.4-10.4 MANDIFF (test code=MANDIFF) NO SCAN (test code=SCAN) NO NEUT% (test code=NEUT%) 76.9 % 40-75 LYMPH% (test code=LYMPH%) 12.8 % 24-44 MONO% (test code=MONO%) 8.1 % 0-13 EOS% (test code=EOS%) 1.6 % 0-4 BASO % (test code=BASO%) 0.2 % 0-2 IG (test code=IG) 0 % 0-1 IG% (test code=IG%) 0.4 % 0-1 IG%=Metamyelocytes, Myelocytes, and Promyelocytes. (Immature neutrophils not including "bands".) > 3% IG indicates risk of sepsis NRBC% (test code=NRBC%) 0 /100 WBC ABS NEUT (test code=NEUT) 8.3 K/UL 1.2-7.2 WHOLE BLOOD [id number] 21:10:00* Test Item Value Reference Range Comments WHOLE BLOOD GLUCOSE (test code=POC GLU) 94 MG/DL 70-99 WHOLE BLOOD [id number] 16:55:00* Test Item Value Reference Range Comments WHOLE BLOOD GLUCOSE (test code=POC GLU) 81 MG/DL 70-99 WHOLE BLOOD [id number] 11:15:00* Test Item Value Reference Range Comments WHOLE BLOOD GLUCOSE (test code=POC GLU) 90 MG/DL 70-99 WHOLE BLOOD [id number] 09:20:00* Test Item Value Reference Range Comments WHOLE BLOOD GLUCOSE (test code=POC GLU) 74 MG/DL 70-99 WHOLE BLOOD [id number] 09:05:00* Test Item Value Reference Range Comments WHOLE BLOOD GLUCOSE (test code=POC GLU) 60 MG/DL 70-99 WHOLE BLOOD [id number] 08:20:00* Test Item Value Reference Range Comments WHOLE BLOOD GLUCOSE (test code=POC GLU) 59 MG/DL 70-99 [id number] 06:47:00* Test Item Value Reference Range Comments HGB (test code=HGB) 9.7 G/DL 11.5-15.5 HCT (test code=HCT) 31.1 % 34-46 MCV (test code=MCV) 95.7 FL 80-98 MCHC (test code=MCHC) 31.2 G/DL 32.5-36.5 WHOLE BLOOD [id number] 20:05:00* Test Item Value Reference Range Comments WHOLE BLOOD GLUCOSE (test code=POC GLU) 135 MG/DL 70-99 WHOLE BLOOD [id number] 16:45:00* Test Item Value Reference Range Comments WHOLE BLOOD GLUCOSE (test code=POC GLU) 108 MG/DL 70-99 [id number] 16:06:00* Test Item Value Reference Range Comments HGB (test code=HGB) 10.2 G/DL 11.5-15.5 HCT (test code=HCT) 31.6 % 34-46 MCV (test code=MCV) 94.9 FL 80-98 MCHC (test code=MCHC) 32.3 G/DL 32.5-36.5 WHOLE BLOOD [id number] 11:40:00* Test Item Value Reference Range Comments WHOLE BLOOD GLUCOSE (test code=POC GLU) 134 MG/DL 70-99 CT THORAX W/O [id number] 10:41:[address] [id number] IMAGING REPORTPatient Name: RONNY VELIZ of Service: [id number]: 58 Sex: F Order #: [id number] Room: [facility] 3SDOB: 1960 X-Ray Number: [id number] Record Number: [id number] Hospital Number: [id number] Physician: FERMIN OBREGON TOrdering Physician: FERMIN OBREGON TCT CHEST WITHOUT CONTRAST 10/20/2018HISTORY: CABG on 10/18/2018, recent falls with pain in the region of thesternum. Incision dehiscenceCOMPARISON: CT chest of 10/18/2018This CT exam was performed using one or more of the following dosereduction techniques: Automated exposure control, adjustment of the mAand/or kV according to patient size, or use of iterative reconstructiontechnique.Post median sternotomy changes are again evident. There is separation ofmanubrium fragments in the transverse dimension by up to 1 cm. Sternal bodyfragments are by up to 1.5 cm and xiphoid process fracturefragments are by up to 2.4 cm.The superior fixation wire is intact. The inferior loop of the mid fixationwire courses through and around only the right side of the sternal bodywhereas the upper lobe is either in or around both fragments. The inferiorfixation wire is fractured.A subcutaneous fluid collection in the midline upper chest is essentiallystable measuring 3.8 cm AP x 2.3 cm transverse x 5 cm CC. An additionalsimilar fluid collection at the sternal body and xiphoid level hasdecreased in size measuring 4 cm AP x 6.5 cm transverse x 7.7 cm CC. Theretrosternal portion of this collection has decreased in AP dimension from2.8 cm to 1.3 cm. Findings may be due to hematoma and/or seroma. No air isnoted within these collections to confirm infectious pro cess at this point.Extensive atherosclerotic disease is again identified.Scatter ed areas of consolidation throughout the lungs may be due toatelectasis or pneum onia. Findings are still most pronounced in the rightmiddle lobe. No significant effusion or pneumothorax.Other bones and soft tissues are stable.IMPRESSION:Post median sternotomy with sternal and adjacent soft tissue findings asdiscussed. The larger fluid collection which extended from the subcutaneoussoft tissues thr ough the defect into the anterior mediastinum is smallerthan on the prior study. Other findings as discussed.Electronically Signed By: Delmar Cristobal M.D., 9 10:39 AMLegally authenticated by ISIDRO AGUILAR 2018-10-20 10:39:02CULTURE, SPUTUM 2018-10-20 10:29:00* Test Item Value Reference Range Comments Report Text (test code=Report Text) [facility] 2018-10-19 920 Report Text7 (test code=Report Text7) NORMAL RESPIRATORY DEISI ISOLATED Report Text8 (test code=Report Text8) PRELIMINARY REPORT Report Text9 (test code=Report Text9) Report Text10 (test code=Report Text10) [facility] 2018-10-20 1029 Report Text11 (test code=Report Text11) NORMAL RESPIRATORY DEISI ISOLATED Report Text12 (test code=Report Text12) FINAL REPORT WHOLE BLOOD [id number] 08:05:00* Test Item Value Reference Range Comments WHOLE BLOOD GLUCOSE (test code=POC GLU) 147 MG/DL 70-99 BMP, BASIC METABOLIC [id number] 06:19:00* Test Item Value Reference Range Comments SODIUM (test code=NA) 142 MMOL/L 137-145 K+ (test code=KSERUM) 4.3 MMOL/L 3.5-5.1 PLEASE NOTE NEW REFERENCE RANGE(S) IN EFFECT EFFECTIVE 02/06/2010 - NEW ANALYZER (Banter! 5600) CHLORIDE (test code=CL) 102 MMOL/L 98-107 CO2 (test code=CO2) 32 MMOL/L 22-30 BUN (test code=BUN) 42 MG/DL 7-17 CREA (test code=CREA) 0.7 MG/DL 0.7-1.2 GLUCOSE (test code=GLUCOSE) 166 MG/DL 70-99 Fasting glucose normal <100 MG/DL- [employer] recommendation CALCIUM (test code=CABLOOD) 8.9 MG/DL 8.4-10.2 GFR (test code=GFR) 91 mL/min/1.73m2 A GFR of >90 mL/min/1.73m2 is considered normal. [id number] 06:13:00* Test Item Value Reference Range Comments WBC (test code=WBC) 14.8 K/UL 3.5-10.9 RBC (test code=RBC) 3.03 M/UL 4.0-5.0 HGB (test code=HGB) 9.1 G/DL 11.5-15.5 HCT (test code=HCT) 29.7 % 34-46 MCV (test code=MCV) 98.0 FL 80-98 MCH (test code=MCH) 30.0 PG 28-32 MCHC (test code=MCHC) 30.6 G/DL 32.5-36.5 RDW (test code=RDW) 15.9 % 11.5-14.5 PLT (test code=PLT) 471 K/UL 150-450 MPV (test code=MPV) 11.3 FL 7.4-10.4 MANDIFF (test code=MANDIFF) NO SCAN (test code=SCAN) NO NEUT% (test code=NEUT%) 87.3 % 40-75 LYMPH% (test code=LYMPH%) 5.9 % 24-44 MONO% (test code=MONO%) 6.2 % 0-13 EOS% (test code=EOS%) 0.0 % 0-4 BASO % (test code=BASO%) 0.1 % 0-2 IG (test code=IG) 0 % 0-1 IG% (test code=IG%) 0.5 % 0-1 IG%=Metamyelocytes, Myelocytes, and Promyelocytes. (Immature neutrophils not including "bands".) > 3% IG indicates risk of sepsis NRBC% (test code=NRBC%) 0 /100 WBC ABS NEUT (test code=NEUT) 12.9 K/UL 1.2-7.2 WHOLE BLOOD [id number] 20:05:00* Test Item Value Reference Range Comments WHOLE BLOOD GLUCOSE (test code=POC GLU) 213 MG/DL 70-99 WHOLE BLOOD [id number] 16:55:00* Test Item Value Reference Range Comments WHOLE BLOOD GLUCOSE (test code=POC GLU) 256 MG/DL 70-99 [id number] 15:29:00* Test Item Value Reference Range Comments HGB (test code=HGB) 9.5 G/DL 11.5-15.5 HCT (test code=HCT) 29.9 % 34-46 MCV (test code=MCV) 93.7 FL 80-98 MCHC (test code=MCHC) 31.8 G/DL 32.5-36.5 [id number] 13:55:00* Test Item Value Reference Range Comments WBC (test code=WBC) 16.8 K/UL 3.5-10.9 RBC (test code=RBC) 3.14 M/UL 4.0-5.0 HGB (test code=HGB) 9.4 G/DL 11.5-15.5 HCT (test code=HCT) 30.8 % 34-46 MCV (test code=MCV) 98.1 FL 80-98 MCH (test code=MCH) 29.9 PG 28-32 MCHC (test code=MCHC) 30.5 G/DL 32.5-36.5 RDW (test code=RDW) 15.8 % 11.5-14.5 PLT (test code=PLT) 474 K/UL 150-450 MPV (test code=MPV) 11.8 FL 7.4-10.4 MANDIFF (test code=MANDIFF) NO SCAN (test code=SCAN) YES NEUT% (test code=NEUT%) 94.9 % 40-75 LYMPH% (test code=LYMPH%) 2.1 % 24-44 MONO% (test code=MONO%) 2.3 % 0-13 EOS% (test code=EOS%) 0.0 % 0-4 BASO % (test code=BASO%) 0.2 % 0-2 IG (test code=IG) 0 % 0-1 IG% (test code=IG%) 0.5 % 0-1 IG%=Metamyelocytes, Myelocytes, and Promyelocytes. (Immature neutrophils not including "bands".) > 3% IG indicates risk of sepsis NRBC% (test code=NRBC%) 0 /100 WBC PLTMORPH (test code=PLTMORPH) LARGE PLATELETS NORMAL PLT-EST (test code=PLT-EST) INCREASED NORMAL POLYCHROMASIA (test code=POLY) 1+ HYPOCHROMIC (test code=HYPO) 2+ ZACARIAS CELLS (test code=BURC) 1+ ABS NEUT (test code=NEUT) 15.9 K/UL 1.2-7.2 CULTURE, [id number] 12:52:00* Test Item Value Reference Range Comments Report Text (test code=Report Text) [facility] 2018-10-18 1015 Report Text7 (test code=Report Text7) NO GROWTH WITHIN 24 HOURS Report Text8 (test code=Report Text8) PRELIMINARY REPORT Report Text9 (test code=Report Text9) Report Text10 (test code=Report Text10) [facility] 2018-10-19 1252 Report Text11 (test code=Report Text11) NO GROWTH WITHIN 48 HOURS Report Text12 (test code=Report Text12) FINAL REPORT WHOLE BLOOD [id number] 11:45:00* Test Item Value Reference Range Comments WHOLE BLOOD GLUCOSE (test code=POC GLU) 262 MG/DL 70-99 WHOLE BLOOD [id number] 08:40:00* Test Item Value Reference Range Comments WHOLE BLOOD GLUCOSE (test code=POC GLU) 253 MG/DL 70-99 BMP, BASIC METABOLIC [id number] 06:12:00* Test Item Value Reference Range Comments SODIUM (test code=NA) 139 MMOL/L 137-145 K+ (test code=KSERUM) 4.4 MMOL/L 3.5-5.1 PLEASE NOTE NEW REFERENCE RANGE(S) IN EFFECT EFFECTIVE 02/06/2010 - NEW ANALYZER (Banter! 5600) CHLORIDE (test code=CL) 100 MMOL/L 98-107 CO2 (test code=CO2) 30 MMOL/L 22-30 BUN (test code=BUN) 45 MG/DL 7-17 CREA (test code=CREA) 0.8 MG/DL 0.7-1.2 GLUCOSE (test code=GLUCOSE) 217 MG/DL 70-99 Fasting glucose normal <100 MG/DL- [place] recommendation CALCIUM (test code=CABLOOD) 8.8 MG/DL 8.4-10.2 GFR (test code=GFR) 78 mL/min/1.73m2 A GFR of >90 mL/min/1.73m2 is considered normal. WHOLE BLOOD [id number] 21:25:00* Test Item Value Reference Range Comments WHOLE BLOOD GLUCOSE (test code=POC GLU) 282 MG/DL 70-99 GRAM [id number] 21:20:00* Test Item Value Reference Range Comments Report Text (test code=Report Text) [facility] 2018-10-182119 Report Text7 (test code=Report Text7) MANY WBC SEEN Report Text8 (test code=Report Text8) [facility] 2018-10-182120 Report Text9 (test code=Report Text9) MODERATE GRAM POSITIVE COCCI SEEN Report Text10 (test code=Report Text10) [facility] 2018-10-182121 Report Text11 (test code=Report Text11) LESS THAN 25 EPITHELIAL CELLS/LPF Report Text12 (test code=Report Text12) GREATER THAN 10 WBC/LPF Report Text13 (test code=Report Text13) GOOD QUALITY SPECIMEN WHOLE BLOOD [id number] 17:15:00* Test Item Value Reference Range Comments WHOLE BLOOD GLUCOSE (test code=POC GLU) 275 MG/DL 70-99 CT THORAX W/O [id number] 16:54:[address] [id number] IMAGING REPORTPatient Name: RONNY VELIZ of Service: [id number]: 58 Sex: F Order #: [id number] Room: [facility] 3SDOB: 1960 X-Ray Number: [id number] Record Number: [id number] Hospital Number: [id number] Physician: FERMIN OBREGON TOrdering Physician: FERMIN OBREGON TCT THORAX W/O CONT 10/18/2018 2:48 PMHistory: eval sternum- s/p fall @ home after recent CABGComparisons: None Available.This CT exam was performed using one or more of the following dosereduction techniques: Automated exposure control, adjustment of the MAand/or KV according to patient size or use of iterative reconstructiontec hnique.Findings:There has been median sternotomy with sternotomy cleft and carreon otomy wiresin place.There is a fluid collection noted involving the midline ante rior softtissues of the chest which extends through the sternotomy cleft into th eanterior mediastinum and compresses on the anterior aspect of theheart/pericard ium that. This measures approximately 9.6 x 9.0 x 2.8 cm.There is no intralumina l gas. This probably represents a soft tissue andmediastinal hematoma considerin g history of trauma and recent surgery.There may be mild vascular congestion or fluid overload with coarsenedinterstitial markings and hazy alveolar groundglass densities. There issome linear atelectasis at the lung bases.There has been low er cervical fusion surgery.There is no pleural effusion or pneumothorax.IMPRESSI ON:Anterior soft tissue subcutaneous fluid collection extending into theanterior mediastinum and slightly compressing on the pericardial fat,probably representi ng a hematoma in the setting of trauma.Electronically Signed By: Andrzej Avila M.D., 10/18/2018 4:52 PMLegally authenticated by ULI PICKETT 2018-10-18 16:52:27 WHOLE BLOOD [id number] 11:25:00* Test Item Value Reference Range Comments WHOLE BLOOD GLUCOSE (test code=POC GLU) 456 MG/DL 70-99 BMP, BASIC METABOLIC [id number] 06:47:00* Test Item Value Reference Range Comments SODIUM (test code=NA) 135 MMOL/L 137-145 K+ (test code=KSERUM) 4.8 MMOL/L 3.5-5.1 PLEASE NOTE NEW REFERENCE RANGE(S) IN EFFECT EFFECTIVE 02/06/2010 - NEW ANALYZER (Banter! 5600) CHLORIDE (test code=CL) 94 MMOL/L 98-107 CO2 (test code=CO2) 26 MMOL/L 22-30 BUN (test code=BUN) 65 MG/DL 7-17 CREA (test code=CREA) 2.2 MG/DL 0.7-1.2 GLUCOSE (test code=GLUCOSE) 251 MG/DL 70-99 Fasting glucose normal <100 MG/DL- [employer] recommendation CALCIUM (test code=CABLOOD) 9.0 MG/DL 8.4-10.2 GFR (test code=GFR) 24 mL/min/1.73m2 A GFR of >90 mL/min/1.73m2 is considered normal. [id number] 05:50:00* Test Item Value Reference Range Comments WBC (test code=WBC) 11.0 K/UL 3.5-10.9 RBC (test code=RBC) 3.41 M/UL 4.0-5.0 HGB (test code=HGB) 10.4 G/DL 11.5-15.5 HCT (test code=HCT) 32.1 % 34-46 MCV (test code=MCV) 94.1 FL 80-98 MCH (test code=MCH) 30.5 PG 28-32 MCHC (test code=MCHC) 32.4 G/DL 32.5-36.5 RDW (test code=RDW) 15.5 % 11.5-14.5 PLT (test code=PLT) 420 K/UL 150-450 MPV (test code=MPV) 11.2 FL 7.4-10.4 MANDIFF (test code=MANDIFF) NO SCAN (test code=SCAN) NO NEUT% (test code=NEUT%) 93.4 % 40-75 LYMPH% (test code=LYMPH%) 4.2 % 24-44 MONO% (test code=MONO%) 1.5 % 0-13 EOS% (test code=EOS%) 0.1 % 0-4 BASO % (test code=BASO%) 0.3 % 0-2 IG (test code=IG) 0 % 0-1 IG% (test code=IG%) 0.5 % 0-1 IG%=Metamyelocytes, Myelocytes, and Promyelocytes. (Immature neutrophils not including "bands".) > 3% IG indicates risk of sepsis NRBC% (test code=NRBC%) 0 /100 WBC ABS NEUT (test code=NEUT) 10.3 K/UL 1.2-7.2 WHOLE BLOOD [id number] 00:40:00* Test Item Value Reference Range Comments WHOLE BLOOD GLUCOSE (test code=POC GLU) 142 MG/DL 70-99 [id number] 18:54:00* Test Item Value Reference Range Comments GLUCOSE (test code=URGLU) NEGATIVE MG/DL NEG-100 BILIRUBN (test code=URBILI) SMALL NEGATIVE KETONE (test code=URKET) TRACE MG/DL NEGATIVE BLOOD (test code=URBLD) NEGATIVE UR PH (test code=URPH) 5.0 5.0-7.5 PROTEIN (test code=URPRO) 30 MG/DL NEGATIVE NITRITES (test code=URNIT) NEGATIVE NEGATIVE UROBILINGEN (test code=URURO) 1.0 EU/DL 0.2-1.0 LEUKOCYT (test code=URLEU) TRACE NEGATIVE UA COLOR (test code=UA COLOR) DARK YELLOW YELLOW CLARITY (test code=CLARITY) TURBID CLEAR SP GRAV (test code=URSPGRAV) 1.028 1.000-1.025 UAMICRO (test code=UAMICRO) YES WBC (test code=URWBC) 11 /HPF 0-5 RBC (test code=URRBC) 3 /HPF 0-2 CASTS (test code=CAST) 50 /LPF 0-3 CASTTYPE (test code=CASTTYPE) GRANULAR UR EPI (test code=EPI) 497 /LPF BACTERIA (test code=BACTERIA) TRACE NONE [id number] 18:53:00* Test Item Value Reference Range Comments BLOOD TYPE (test code=TYPE) A Rh Positive ANTIBODY SCREEN (test code=SCREEN) NEGATIVE NEGATIVE BG LAB ARTERIAL [id number] 18:07:00* Test Item Value Reference Range Comments SITE (test code=SITE) RIGHT BRACH SITE ALLENS (test code=ALLENS) POS BGLAC (test code=BGLAC) 11.0 mg/dL 5.0-18.0 WHOLE BLOOD [id number] 17:00:00* Test Item Value Reference Range Comments WHOLE BLOOD GLUCOSE (test code=POC GLU) 143 MG/DL 70-99 CORTISOL, [id number] 16:38:00* Test Item Value Reference Range Comments CHACE (test code=CHACE) 32.1 ug/dL BEFORE 10 AM: 4.46 TO 22.7 UG/DL AFTER 5 PM: 1.7 TO 14.1 UG/DL LIVER [id number] 16:38:00* Test Item Value Reference Range Comments TOTPROT (test code=TOTPROT) 5.9 G/DL 6.3-8.2 ALBUMIN (test code=ALBSERUM) 3.3 G/DL 3.5-5.0 BILITOT (test code=BILITOT) 0.6 MG/DL 0.2-1.3 BILIDIR (test code=BILIDIR) 0.6 MG/DL 0.0-0.4 AST (test code=AST) 22 U/L 15-46 PHOSALK (test code=PHOSALK) 49 U/L 38-126 ALT (test code=ALT) 22 U/L 13-69 [id number] 16:38:00* Test Item Value Reference Range Comments MG (test code=MG) 1.6 mg/dL 1.6-2.3 [id number] 16:38:00* Test Item Value Reference Range Comments PHOSPHOR (test code=PHOSPHOR) 6.2 MG/DL 2.5-4.5 PROTHROMBIN TIME WITH [id number] 16:19:00* Test Item Value Reference Range Comments PROTHROMBIN TIME (test code=PT) 19.2 SECONDS 12.0-14.6 INR Usual Range=2 to 3 for prevention of deep vein thrombosis (DVT) INR (test code=INR) 1.6 [id number] 16:18:00* Test Item Value Reference Range Comments PTT (test code=PTT) 36.3 SECONDS 24.4-36.3 HEPARIN THERAPEUTIC RANGE 57-92 SECONDS [id number] 16:08:00* Test Item Value Reference Range Comments %CKMB (test code=%MB) 1.1 % CKMB (test code=CKMB) 1.9 NG/ML 0.22-2.4 CK (test code=CK) 178 U/L 30-135 CKINTERP (test code=CKINTERP) NEGATIVE Negative [id number] 15:40:00* Test Item Value Reference Range Comments WBC (test code=WBC) 12.1 K/UL 3.5-10.9 RBC (test code=RBC) 3.29 M/UL 4.0-5.0 HGB (test code=HGB) 9.9 G/DL 11.5-15.5 HCT (test code=HCT) 30.4 % 34-46 MCV (test code=MCV) 92.4 FL 80-98 MCH (test code=MCH) 30.1 PG 28-32 MCHC (test code=MCHC) 32.6 G/DL 32.5-36.5 RDW (test code=RDW) 15.6 % 11.5-14.5 PLT (test code=PLT) 453 K/UL 150-450 MPV (test code=MPV) 10.9 FL 7.4-10.4 MANDIFF (test code=MANDIFF) NO SCAN (test code=SCAN) NO NEUT% (test code=NEUT%) 79.3 % 40-75 LYMPH% (test code=LYMPH%) 11.3 % 24-44 MONO% (test code=MONO%) 7.4 % 0-13 EOS% (test code=EOS%) 0.8 % 0-4 BASO % (test code=BASO%) 0.5 % 0-2 IG (test code=IG) 0 % 0-1 IG% (test code=IG%) 0.7 % 0-1 IG%=Metamyelocytes, Myelocytes, and Promyelocytes. (Immature neutrophils not including "bands".) > 3% IG indicates risk of sepsis NRBC% (test code=NRBC%) 0 /100 WBC ABS NEUT (test code=NEUT) 9.6 K/UL 1.2-7.2 TROPONIN [id number] 15:30:00* Test Item Value Reference Range Comments TROPER (test code=TROPER) 0.08 NG/ML 0.0-0.08 ISTAT [id number] [id number] 15:30:00* Test Item Value Reference Range Comments ISTATNA (test code=ISTATNA) 133 MMOL/L 137-145 ISTATK (test code=ISTATK) 3.0 MMOL/L 3.6-5.0 ISTATCL (test code=ISTATCL) 88 MMOL/L 98-107 ISTIONCA (test code=ISTIONCA) 1.01 MMOL/L 1.12-1.32 ISTCO2 (test code=ISTCO2) 28 MMOL/L 22-30 ISTATGLU (test code=ISTATGLU) 138 MG/DL 65-110 ISTATBUN (test code=ISTATBUN) 54.0 MG/DL 7.0-20.0 ISTCREA (test code=ISTCREA) 4.1 MG/DL 0.7-1.5 ISTATHCT (test code=ISTATHCT) 33 %PCV 37.0-52.0 ISTATHGB (test code=ISTATHGB) 11.2 G/DL 12.0-18.0 ISTANGAP (test code=ISTANGAP) 21 MMOL/L BG LAB ARTERIAL [id number] 15:21:00* Test Item Value Reference Range Comments SITE (test code=SITE) RIGHT BRACH SITE BRANDON (test code=ALLENS) POS BGLAC (test code=BGLAC) 21.0 mg/dL 5.0-18.0 BLOOD GAS [id number] 15:20:00* Test Item Value Reference Range Comments SITE (test code=SITE) RIGHT BRACH SITE BRANDON (test code=ALLENS) POS O2 EQUIP (test code=O2 EQUIP) NC O2-DEVICE L/M (test code=L/M) 2 L/M FIO2 (test code=FIO2) 28 % PH (test code=BGPH) 7.41 7.35-7.45 PCO2 (test code=PCO2) 44 MMHG 34.0-45.0 PO2 (test code=PO2) 77 MMHG 79-87 HCO3 (test code=HCO3) 27.9 mmol/L 22.0-26.0 BE (test code=BE) 2.9 mmol/L -2.0-2.0 THB (test code=THB) 9.6 G/DL 12-16 % 02 HB (test code=ABGSAT) 92.0 % 96.0-100.0 %COHB (test code=BGCO) 2.2 % <1.5 % MET HB (test code=%MET HB) 1.2 % 0.4-1.5 CAO2 (test code=CAO2) 12.5 VOL% 15.7-21.6 PF/RATIO (test code=PF/RATIO) 275.0 CHEST 1 VIEW [id number] 15:17:[address] [id number] IMAGING REPORTPatient Name: RONNY VELIZ EDate of Service: [id number]: 58 Sex: F Order #: [id number] [facility] 1960 [facility] Number: [id number] Record Number: [id number] Hospital Number: [id number] Physician: Negrita FORRESTing Physician: KADY FORREST 1 VIEW PORTABLE 10/17/2018 3:13 PMHistory: COPDComparisons: 10/13/2018Findings:Coarsened interstitial markings, prominent central pulmonary vasculatureand cephalization of blood flow suggests vascular congestion in the properclinical setting.There is no pneumothorax.Heart size is enlarged.There has been median sternotomy.There has been lower cervical fusion.IMPRESSION:Suspected very mild vascular congestion.Electronically Signed By: Andrzej Avila M.D., 10/17/2018 3:15 PMLegally authenticated by ULI PICKETT 2018-10-17 15:15:24WHOLE BLOOD [id number] 11:45:00* Test Item Value Reference Range Comments WHOLE BLOOD GLUCOSE (test code=POC GLU) 170 MG/DL 70-99 [id number] 08:12:00* Test Item Value Reference Range Comments MG (test code=MG) 1.6 mg/dL 1.6-2.3 WHOLE BLOOD [id number] 08:05:00* Test Item Value Reference Range Comments WHOLE BLOOD GLUCOSE (test code=POC GLU) 159 MG/DL 70-99 BMP, BASIC METABOLIC [id number] 06:43:00* Test Item Value Reference Range Comments SODIUM (test code=NA) 141 MMOL/L 137-145 K+ (test code=KSERUM) 3.4 MMOL/L 3.5-5.1 PLEASE NOTE NEW REFERENCE RANGE(S) IN EFFECT EFFECTIVE 02/06/2010 - NEW ANALYZER (Banter! 5600) CHLORIDE (test code=CL) 93 MMOL/L 98-107 CO2 (test code=CO2) 40 MMOL/L 22-30 BUN (test code=BUN) 21 MG/DL 7-17 CREA (test code=CREA) 0.5 MG/DL 0.7-1.2 GLUCOSE (test code=GLUCOSE) 173 MG/DL 70-99 Fasting glucose normal <100 MG/DL- [employer] recommendation CALCIUM (test code=CABLOOD) 8.9 MG/DL 8.4-10.2 GFR (test code=GFR) 134 mL/min/1.73m2 A GFR of >90 mL/min/1.73m2 is considered normal. RESULTS VERIFIED.C'd TO 3S/HAWA ENGLE/0643/[id number] 06:07:00* Test Item Value Reference Range Comments WBC (test code=WBC) 8.5 K/UL 3.5-10.9 RBC (test code=RBC) 3.87 M/UL 4.0-5.0 HGB (test code=HGB) 11.6 G/DL 11.5-15.5 HCT (test code=HCT) 35.9 % 34-46 MCV (test code=MCV) 92.8 FL 80-98 MCH (test code=MCH) 30.0 PG 28-32 MCHC (test code=MCHC) 32.3 G/DL 32.5-36.5 RDW (test code=RDW) 15.1 % 11.5-14.5 PLT (test code=PLT) 391 K/UL 150-450 MPV (test code=MPV) 11.0 FL 7.4-10.4 MANDIFF (test code=MANDIFF) NO SCAN (test code=SCAN) NO NEUT% (test code=NEUT%) 76.9 % 40-75 LYMPH% (test code=LYMPH%) 11.3 % 24-44 MONO% (test code=MONO%) 8.0 % 0-13 EOS% (test code=EOS%) 2.7 % 0-4 BASO % (test code=BASO%) 0.5 % 0-2 IG (test code=IG) 0 % 0-1 IG% (test code=IG%) 0.6 % 0-1 IG%=Metamyelocytes, Myelocytes, and Promyelocytes. (Immature neutrophils not including "bands".) > 3% IG indicates risk of sepsis NRBC% (test code=NRBC%) 0 /100 WBC ABS NEUT (test code=NEUT) 6.5 K/UL 1.2-7.2 WHOLE BLOOD [id number] 20:05:00* Test Item Value Reference Range Comments WHOLE BLOOD GLUCOSE (test code=POC GLU) 190 MG/DL 70-99 WHOLE BLOOD [id number] 17:30:00* Test Item Value Reference Range Comments WHOLE BLOOD GLUCOSE (test code=POC GLU) 130 MG/DL 70-99 WHOLE BLOOD [id number] 11:50:00* Test Item Value Reference Range Comments WHOLE BLOOD GLUCOSE (test code=POC GLU) 194 MG/DL 70-99 [id number] 08:03:00* Test Item Value Reference Range Comments MG (test code=MG) 1.8 mg/dL 1.6-2.3 LIPID [id number] 08:03:00* Test Item Value Reference Range Comments CHOLEST (test code=CHOLEST) 122 MG/DL 0-200 TRIGLYCE (test code=TRIGLYCE) 191 MG/DL 0-150 HDL (test code=HDL) 18 MG/DL 35-90 NEGATIVE RISK FACTOR FOR HEART DISEASE IF HDL >/=60 mg/dl MAJOR RISK FACTOR FOR HEART DISEASE IF HDL <40 mg/dL CALC LDL (test code=CALC LDL) 66 MG/DL <100 BMP, BASIC METABOLIC [id number] 08:03:00* Test Item Value Reference Range Comments SODIUM (test code=NA) 141 MMOL/L 137-145 K+ (test code=KSERUM) 4.0 MMOL/L 3.5-5.1 PLEASE NOTE NEW REFERENCE RANGE(S) IN EFFECT EFFECTIVE 02/06/2010 - NEW ANALYZER (Banter! 5600) CHLORIDE (test code=CL) 98 MMOL/L 98-107 CO2 (test code=CO2) 39 MMOL/L 22-30 BUN (test code=BUN) 20 MG/DL 7-17 CREA (test code=CREA) 0.5 MG/DL 0.7-1.2 GLUCOSE (test code=GLUCOSE) 125 MG/DL 70-99 Fasting glucose normal <100 MG/DL- [employer] recommendation CALCIUM (test code=CABLOOD) 8.6 MG/DL 8.4-10.2 GFR (test code=GFR) 134 mL/min/1.73m2 A GFR of >90 mL/min/1.73m2 is considered normal. WHOLE BLOOD [id number] 07:50:00* Test Item Value Reference Range Comments WHOLE BLOOD GLUCOSE (test code=POC GLU) 132 MG/DL 70-99 WHOLE BLOOD [id number] 04:50:00* Test Item Value Reference Range Comments WHOLE BLOOD GLUCOSE (test code=POC GLU) 122 MG/DL 70-99 WHOLE BLOOD [id number] 20:35:00* Test Item Value Reference Range Comments WHOLE BLOOD GLUCOSE (test code=POC GLU) 156 MG/DL 70-99 WHOLE BLOOD [id number] 17:30:00* Test Item Value Reference Range Comments WHOLE BLOOD GLUCOSE (test code=POC GLU) 152 MG/DL 70-99 WHOLE BLOOD [id number] 12:55:00* Test Item Value Reference Range Comments WHOLE BLOOD GLUCOSE (test code=POC GLU) 137 MG/DL 70-99 WHOLE BLOOD [id number] 08:25:00* Test Item Value Reference Range Comments WHOLE BLOOD GLUCOSE (test code=POC GLU) 206 MG/DL 70-99 CHEST 1 VIEW [id number] 07:26:[address] [id number] IMAGING REPORTPatient Name: RONNY VELIZ of Service: [id number]: 58 Sex: F Order #: [id number] [facility] 2CVUDOB: 1960 X-Ray Number: [id number] Record Number: [id number] Hospital Number: [id number] Physician: DIANE PRATT - Ordering Physician: Josiah LAM:10/13/2018 5:21 AMHistory: Chest pain.Technique: Single AP chest projection.Comparison:October 12, 2018.Findings:Cardiomegaly and mild interstitial prominence without focal consolidation.Left-sided chest tube remains. Left-sided central venous catheter tip liesin the brachiocephalic vein.Impression:Strandy interstitial changes unchanged from prior. No focal consolidation.No interval change.Electronically Signed By: Chauncey aHyden M.D., 10/13/2018 7:24 AMLegally authenticated by ALBERTA Gonzalez 2018-10-13 07:24:[id number] 05:45:00* Test Item Value Reference Range Comments MG (test code=MG) 1.9 mg/dL 1.6-2.3 WHOLE BLOOD [id number] 05:35:00* Test Item Value Reference Range Comments WHOLE BLOOD GLUCOSE (test code=POC GLU) 139 MG/DL 70-99 [facility], BASIC METABOLIC [id number] 04:42:00* Test Item Value Reference Range Comments SODIUM (test code=NA) 140 MMOL/L 137-145 K+ (test code=KSERUM) 3.8 MMOL/L 3.5-5.1 PLEASE NOTE NEW REFERENCE RANGE(S) IN EFFECT EFFECTIVE 02/06/2010 - NEW ANALYZER (nPickerS [id number]) CHLORIDE (test code=CL) 100 MMOL/L 98-107 CO2 (test code=CO2) 36 MMOL/L 22-30 BUN (test code=BUN) 15 MG/DL 7-17 CREA (test code=CREA) 0.5 MG/DL 0.7-1.2 GLUCOSE (test code=GLUCOSE) 130 MG/DL 70-99 Fasting glucose normal <100 MG/DL- [employer] recommendation CALCIUM (test code=CABLOOD) 8.2 MG/DL 8.4-10.2 GFR (test code=GFR) 134 mL/min/1.73m2 A GFR of >90 mL/min/1.73m2 is considered normal. [id number] 04:10:00* Test Item Value Reference Range Comments WBC (test code=WBC) 6.4 K/UL 3.5-10.9 RBC (test code=RBC) 3.32 M/UL 4.0-5.0 HGB (test code=HGB) 9.7 G/DL 11.5-15.5 HCT (test code=HCT) 31.6 % 34-46 MCV (test code=MCV) 95.2 FL 80-98 MCH (test code=MCH) 29.2 PG 28-32 MCHC (test code=MCHC) 30.7 G/DL 32.5-36.5 RDW (test code=RDW) 15.5 % 11.5-14.5 PLT (test code=PLT) 204 K/UL 150-450 MPV (test code=MPV) 11.0 FL 7.4-10.4 MANDIFF (test code=MANDIFF) NO SCAN (test code=SCAN) NO NEUT% (test code=NEUT%) 67.7 % 40-75 LYMPH% (test code=LYMPH%) 16.4 % 24-44 MONO% (test code=MONO%) 10.5 % 0-13 EOS% (test code=EOS%) 4.7 % 0-4 BASO % (test code=BASO%) 0.2 % 0-2 IG (test code=IG) 0 % 0-1 IG% (test code=IG%) 0.5 % 0-1 IG%=Metamyelocytes, Myelocytes, and Promyelocytes. (Immature neutrophils not including "bands".) > 3% IG indicates risk of sepsis NRBC% (test code=NRBC%) 0 /100 WBC ABS NEUT (test code=NEUT) 4.3 K/UL 1.2-7.2 WHOLE BLOOD [id number] 01:10:00* Test Item Value Reference Range Comments WHOLE BLOOD GLUCOSE (test code=POC GLU) 105 MG/DL 70-99 WHOLE BLOOD [id number] 20:10:00* Test Item Value Reference Range Comments WHOLE BLOOD GLUCOSE (test code=POC GLU) 147 MG/DL 70-99 WHOLE BLOOD [id number] 17:00:00* Test Item Value Reference Range Comments WHOLE BLOOD GLUCOSE (test code=POC GLU) 140 MG/DL 70-99 WHOLE BLOOD [id number] 13:30:00* Test Item Value Reference Range Comments WHOLE BLOOD GLUCOSE (test code=POC GLU) 139 MG/DL 70-99 WHOLE BLOOD [id number] 13:30:00* Test Item Value Reference Range Comments WHOLE BLOOD GLUCOSE (test code=POC GLU) 128 MG/DL 70-99 WHOLE BLOOD [id number] 13:30:00* Test Item Value Reference Range Comments WHOLE BLOOD GLUCOSE (test code=POC GLU) 152 MG/DL 70-99 WHOLE BLOOD [id number] 13:30:00* Test Item Value Reference Range Comments WHOLE BLOOD GLUCOSE (test code=POC GLU) 147 MG/DL 70-99 WHOLE BLOOD [id number] 13:30:00* Test Item Value Reference Range Comments WHOLE BLOOD GLUCOSE (test code=POC GLU) 170 MG/DL 70-99 PROBRAIN NATRIURETIC [id number] 08:53:00* Test Item Value Reference Range Comments NT-PROBNP (test code=PROBNP) 1710 pg/mL Exclusion for heart failure for patients of all ages is 300 pg/mL. Inclusion for heart failure for patients age <50 is 450 pg/mL; for patients age 50-75 is 900 pg/mL; for patients age >75 is 1800 pg/ mL. WHOLE BLOOD [id number] 08:50:00* Test Item Value Reference Range Comments WHOLE BLOOD GLUCOSE (test code=POC GLU) 141 MG/DL 70-99 CHEST 1 VIEW [id number] 07:04:00[address] [id number] IMAGING REPORTPatient Name: RONNY VELIZ BAKARIate of Service: [id number]: 58 Sex: F Order #: [id number] Room: 220/ A 2CVUDOB: 1960 X-Ray Number: [id number] Record Number: [id number] Hospital Number: [id number] Physician: DIANE PRATT - Ordering Physician: Josiah LAM one view 10/12/2018History: Chest pain, heart diseaseComparison: 10/11/2018Endotracheal and nasogastric tubes have been removed.Other support devices are unchanged.Cardiac, hilar, and mediastinal structures are stable. Lungs still showscattered increased interstitial and airspace opacities which may be due toedema or pneumonia. No new bony or soft tissue abnormalities areidentified.Impression:No significant improvement.Electronically Signed By: Delmar Cristobal M.D., 10/12/2018 7:02 AMLegally authenticated by ISIDRO AGUILAR 2018-10-12 07:02:06BMP, BASIC METABOLIC PANEL 2018-10-12 04:32:00* Test Item Value Reference Range Comments SODIUM (test code=NA) 141 MMOL/L 137-145 K+ (test code=KSERUM) 3.8 MMOL/L 3.5-5.1 PLEASE NOTE NEW REFERENCE RANGE(S) IN EFFECT EFFECTIVE 02/06/2010 - NEW ANALYZER ([employer]ter! 5600) CHLORIDE (test code=CL) 104 MMOL/L 98-107 CO2 (test code=CO2) 33 MMOL/L 22-30 BUN (test code=BUN) 10 MG/DL 7-17 CREA (test code=CREA) 0.5 MG/DL 0.7-1.2 GLUCOSE (test code=GLUCOSE) 141 MG/DL 70-99 Fasting glucose normal <100 MG/DL- [place] recommendation CALCIUM (test code=CABLOOD) 7.9 MG/DL 8.4-10.2 GFR (test code=GFR) 134 mL/min/1.73m2 A GFR of >90 mL/min/1.73m2 is considered normal. [id number] 04:08:00* Test Item Value Reference Range Comments WBC (test code=WBC) 8.3 K/UL 3.5-10.9 RBC (test code=RBC) 3.42 M/UL 4.0-5.0 HGB (test code=HGB) 10.2 G/DL 11.5-15.5 HCT (test code=HCT) 32.1 % 34-46 MCV (test code=MCV) 93.9 FL 80-98 MCH (test code=MCH) 29.8 PG 28-32 MCHC (test code=MCHC) 31.8 G/DL 32.5-36.5 RDW (test code=RDW) 15.6 % 11.5-14.5 PLT (test code=PLT) 160 K/UL 150-450 MPV (test code=MPV) 11.3 FL 7.4-10.4 MANDIFF (test code=MANDIFF) NO SCAN (test code=SCAN) NO NEUT% (test code=NEUT%) 77.6 % 40-75 LYMPH% (test code=LYMPH%) 11.4 % 24-44 MONO% (test code=MONO%) 7.9 % 0-13 EOS% (test code=EOS%) 2.5 % 0-4 BASO % (test code=BASO%) 0.1 % 0-2 IG (test code=IG) 0 % 0-1 IG% (test code=IG%) 0.5 % 0-1 IG%=Metamyelocytes, Myelocytes, and Promyelocytes. (Immature neutrophils not including "bands".) > 3% IG indicates risk of sepsis NRBC% (test code=NRBC%) 0 /100 WBC ABS NEUT (test code=NEUT) 6.4 K/UL 1.2-7.2 1 UNIT [id number] 04:00:00* Test Item Value Reference Range Comments PI (test code=PI) GUARD ENTRANCE REGISTRAR SI (test code=SI) Transfused 1 UNIT [id number] 04:00:00* Test Item Value Reference Range Comments PI (test code=PI) GUARD ENTRANCE REGISTRAR SI (test code=SI) Transfused WHOLE BLOOD [id number] 00:10:00* Test Item Value Reference Range Comments WHOLE BLOOD GLUCOSE (test code=POC GLU) 141 MG/DL 70-99 BLOOD GAS [id number] 18:05:00* Test Item Value Reference Range Comments SITE (test code=SITE) RB SITE ALLENS (test code=ALLENS) NA O2 EQUIP (test code=O2 EQUIP) NC O2-DEVICE L/M (test code=L/M) 4 L/M PH (test code=BGPH) 7.37 7.35-7.45 PCO2 (test code=PCO2) 50 MMHG 34.0-45.0 PO2 (test code=PO2) 82 MMHG 79-87 HCO3 (test code=HCO3) 28.9 mmol/L 22.0-26.0 BE (test code=BE) 2.9 mmol/L -2.0-2.0 THB (test code=THB) 10.1 G/DL 12-16 % 02 HB (test code=ABGSAT) 94.7 % 96.0-100.0 %COHB (test code=BGCO) 1.5 % <1.5 % MET HB (test code=%MET HB) 0.6 % 0.4-1.5 CAO2 (test code=CAO2) 13.6 VOL% 15.7-21.6 PF/RATIO (test code=PF/RATIO) 228 ANTICOAG?: LAST DOSE?:WHOLE BLOOD [id number] 09:55:00* Test Item Value Reference Range Comments WHOLE BLOOD GLUCOSE (test code=POC GLU) 162 MG/DL 70-99 [id number] 09:43:00* Test Item Value Reference Range Comments BLOOD TYPE (test code=TYPE) A Rh Positive ANTIBODY SCREEN (test code=SCREEN) NEGATIVE NEGATIVE BLOOD GAS [id number] 09:07:00* Test Item Value Reference Range Comments SITE (test code=SITE) RB SITE [facility] (test code=ALLENS) NA O2 EQUIP (test code=O2 EQUIP) G5 O2-DEVICE FIO2 (test code=FIO2) 50 % PEEP (test code=PEEP) 5 PS (test code=PS) 5 PH (test code=BGPH) 7.39 7.35-7.45 PCO2 (test code=PCO2) 44 MMHG 34.0-45.0 PO2 (test code=PO2) 122 MMHG 79-87 HCO3 (test code=HCO3) 26.6 mmol/L 22.0-26.0 BE (test code=BE) 1.4 mmol/L -2.0-2.0 THB (test code=THB) 8.3 G/DL 12-16 % 02 HB (test code=ABGSAT) 96.3 % 96.0-100.0 %COHB (test code=BGCO) 1.0 % <1.5 % MET HB (test code=%MET HB) 0.5 % 0.4-1.5 CAO2 (test code=CAO2) 11.5 VOL% 15.7-21.6 PF/RATIO (test code=PF/RATIO) 244 ANTICOAG?: LAST DOSE?:CHEST 1 VIEW [id number] 07:38:00[address] [id number] IMAGING REPORTPatient Name: RONNY VELIZ EDate of Service: 04-36-2370Aph: 58 Sex: F Order #: [id number] Room: [facility] A 2CVUDOB: 1960 X-Ray Number: [id number] Record Number: [id number] Hospital Number: [id number] Physician: DIANE PRATT -Ordering Physician: Josiah LAM one view 10/11/2018History: Chest pain, heart diseaseComparison: 10/10/2018Support devices are unchanged.Cardiac, hilar, and mediastinal structures are stable. Lungs still showdiffusely increased interstitial and airspace opacities which may be due toedema or pneumonia. No acute bony or soft tissue abnormalities areidentified.I mpression:No improvement.Electronically Signed By: Delmar Cristobal M.D., 10/11/2018 7: 36 AMLegally authenticated by ISIDRO AGUILAR 2018-10-11 07:36:21WHOLE BLOOD GLUCOSE 2018-10-11 05:10:00* Test Item Value Reference Range Comments WHOLE BLOOD GLUCOSE (test code=POC GLU) 157 MG/DL 70-99 [id number] 04:15:00* Test Item Value Reference Range Comments SODIUM (test code=NA) 140 MMOL/L 137-145 K+ (test code=KSERUM) 3.7 MMOL/L 3.5-5.1 PLEASE NOTE NEW REFERENCE RANGE(S) IN EFFECT EFFECTIVE 02/06/2010 - NEW ANALYZER (VITROS 5600) CHLORIDE (test code=CL) 108 MMOL/L 98-107 CO2 (test code=CO2) 26 MMOL/L 22-30 BUN (test code=BUN) 16 MG/DL 7-17 CREA (test code=CREA) 0.5 MG/DL 0.7-1.2 GLUCOSE (test code=GLUCOSE) 157 MG/DL 70-99 Fasting glucose normal <100 MG/DL- [place] [employer] recommendation CALCIUM (test code=CABLOOD) 7.6 MG/DL 8.4-10.2 TOTPROT (test code=TOTPROT) 4.6 G/DL 6.3-8.2 ALBUMIN (test code=ALBSERUM) 2.5 G/DL 3.5-5.0 BILITOT (test code=BILITOT) 0.4 MG/DL 0.2-1.3 AST (test code=AST) 31 U/L 15-46 PHOSALK (test code=PHOSALK) 35 U/L 38-126 ALT (test code=ALT) 34 U/L 13-69 GFR (test code=GFR) 134 mL/min/1.73m2 A GFR of >90 mL/min/1.73m2 is considered normal. [id number] 03:39:00* Test Item Value Reference Range Comments WBC (test code=WBC) 9.3 K/UL 3.5-10.9 RBC (test code=RBC) 2.65 M/UL 4.0-5.0 HGB (test code=HGB) 7.8 G/DL 11.5-15.5 HCT (test code=HCT) 24.9 % 34-46 MCV (test code=MCV) 94.0 FL 80-98 MCH (test code=MCH) 29.4 PG 28-32 MCHC (test code=MCHC) 31.3 G/DL 32.5-36.5 RDW (test code=RDW) 15.8 % 11.5-14.5 PLT (test code=PLT) 145 K/UL 150-450 MPV (test code=MPV) 11.7 FL 7.4-10.4 MANDIFF (test code=MANDIFF) NO SCAN (test code=SCAN) NO NEUT% (test code=NEUT%) 73.2 % 40-75 LYMPH% (test code=LYMPH%) 17.0 % 24-44 MONO% (test code=MONO%) 5.6 % 0-13 EOS% (test code=EOS%) 3.8 % 0-4 BASO % (test code=BASO%) 0.2 % 0-2 IG (test code=IG) 0 % 0-1 IG% (test code=IG%) 0.2 % 0-1 IG%=Metamyelocytes, Myelocytes, and Promyelocytes. (Immature neutrophils not including "bands".) > 3% IG indicates risk of sepsis NRBC% (test code=NRBC%) 0 /100 WBC ABS NEUT (test code=NEUT) 6.8 K/UL 1.2-7.2 WHOLE BLOOD [id number] 02:15:00* Test Item Value Reference Range Comments WHOLE BLOOD GLUCOSE (test code=POC GLU) 159 MG/DL 70-99 BLOOD GAS [id number] 02:10:00* Test Item Value Reference Range Comments SITE (test code=SITE) FLORENCE SITE ALLENS (test code=ALLENS) NA O2 EQUIP (test code=O2 EQUIP) G5V O2-DEVICE FIO2 (test code=FIO2) 50% % SIMV (test code=SIMV) 12 PT. RR (test code=PT. RR) TOTAL 12 PEEP (test code=PEEP) +5 PS (test code=PS) 5 VT (test code=VT) 700 VMIN (test code=VMIN) 8.3 PH (test code=BGPH) 7.48 7.35-7.45 PCO2 (test code=PCO2) 34 MMHG 34.0-45.0 PO2 (test code=PO2) 137 MMHG 79-87 HCO3 (test code=HCO3) 25.3 mmol/L 22.0-26.0 BE (test code=BE) 1.8 mmol/L -2.0-2.0 THB (test code=THB) 8.0 G/DL 12-16 % 02 HB (test code=ABGSAT) 96.2 % 96.0-100.0 %COHB (test code=BGCO) 0.7 % <1.5 % MET HB (test code=%MET HB) 0.4 % 0.4-1.5 CAO2 (test code=CAO2) 11.1 VOL% 15.7-21.6 PF/RATIO (test code=PF/RATIO) 274.0 ANTICOAG?: LAST DOSE?:1 UNIT [id number] 00:16:00* Test Item Value Reference Range Comments PI (test code=PI) GUARD ENTRANCE REGISTRAR SI (test code=SI) Released 1 UNIT [id number] 00:16:00* Test Item Value Reference Range Comments PI (test code=PI) GUARD ENTRANCE REGISTRAR SI (test code=SI) Released 1 UNIT [id number] 00:16:00* Test Item Value Reference Range Comments PI (test code=PI) GUARD ENTRANCE REGISTRAR SI (test code=SI) Released 1 UNIT [id number] 00:16:00* Test Item Value Reference Range Comments PI (test code=PI) GUARD ENTRANCE REGISTRAR SI (test code=SI) Released WHOLE BLOOD [id number] 20:55:00* Test Item Value Reference Range Comments WHOLE BLOOD GLUCOSE (test code=POC GLU) 143 MG/DL 70-99 WHOLE BLOOD [id number] 16:35:00* Test Item Value Reference Range Comments WHOLE BLOOD GLUCOSE (test code=POC GLU) 146 MG/DL 70-99 WHOLE BLOOD [id number] 16:35:00* Test Item Value Reference Range Comments WHOLE BLOOD GLUCOSE (test code=POC GLU) 144 MG/DL 70-99 WHOLE BLOOD [id number] 16:35:00* Test Item Value Reference Range Comments WHOLE BLOOD GLUCOSE (test code=POC GLU) 154 MG/DL 70-99 SVO2 PANFILO [id number] 09:09:00* Test Item Value Reference Range Comments %O2 HB (test code=MV%O2 HB) 65.0 % 40.0-70.0 WHOLE BLOOD [id number] 07:55:00* Test Item Value Reference Range Comments WHOLE BLOOD GLUCOSE (test code=POC GLU) 140 MG/DL 70-99 WHOLE BLOOD [id number] 07:55:00* Test Item Value Reference Range Comments WHOLE BLOOD GLUCOSE (test code=POC GLU) 128 MG/DL 70-99 CHEST 1 VIEW [id number] 07:36:00[address] [id number] IMAGING REPORTPatient Name: RONNY VELIZ EDate of Service: 96-94-3205Ork: 58 Sex: F Order #: [id number] Room: 220/ A 2CVUDOB: 1960 X-Ray Number: [id number] Record Number: [id number] Hospital Number: [id number] Physician: ADELA NGUYENAROrdering Physician: YESENIA GARCIA THISTORY: Follow up. . Status post CABG. The latter dependency. Chest tubemanagement.COMPARISON: 10/09/2018TECHNIQUE: Portable chest 1 viewFINDINGS:The life-support devices are unchanged for the cardiomediastinal silhouetteis stable. There is persistent perihilar and bibasilar atelectasis. Thereis no effusion or pneumotho rax.IMPRESSION:Stable chest.Electronically Signed By: Cirilo Cardoso M.D., 10/10 7:33 AMLegally authenticated by BEN KERR 2018-10-10 07:33:49WHOLE BLOOD [id number] 06:25:00* Test Item Value Reference Range Comments WHOLE BLOOD GLUCOSE (test code=POC GLU) 136 MG/DL 70-99 BMP, BASIC METABOLIC [id number] 04:05:00* Test Item Value Reference Range Comments SODIUM (test code=NA) 141 MMOL/L 137-145 K+ (test code=KSERUM) 3.8 MMOL/L 3.5-5.1 PLEASE NOTE NEW REFERENCE RANGE(S) IN EFFECT EFFECTIVE 02/06/2010 - NEW ANALYZER ([employer]! 5600) CHLORIDE (test code=CL) 110 MMOL/L 98-107 CO2 (test code=CO2) 25 MMOL/L 22-30 BUN (test code=BUN) 15 MG/DL 7-17 CREA (test code=CREA) 0.6 MG/DL 0.7-1.2 GLUCOSE (test code=GLUCOSE) 143 MG/DL 70-99 Fasting glucose normal <100 MG/DL- [place] [employer] recommendation CALCIUM (test code=CABLOOD) 7.7 MG/DL 8.4-10.2 GFR (test code=GFR) 108 mL/min/1.73m2 A GFR of >90 mL/min/1.73m2 is considered normal. [id number] 04:05:00* Test Item Value Reference Range Comments WBC (test code=WBC) 11.6 K/UL 3.5-10.9 RBC (test code=RBC) 2.91 M/UL 4.0-5.0 HGB (test code=HGB) 8.6 G/DL 11.5-15.5 HCT (test code=HCT) 27.1 % 34-46 MCV (test code=MCV) 93.1 FL 80-98 MCH (test code=MCH) 29.6 PG 28-32 MCHC (test code=MCHC) 31.7 G/DL 32.5-36.5 RDW (test code=RDW) 16.0 % 11.5-14.5 PLT (test code=PLT) 150 K/UL 150-450 MPV (test code=MPV) 11.8 FL 7.4-10.4 MANDIFF (test code=MANDIFF) NO SCAN (test code=SCAN) NO NEUT% (test code=NEUT%) 76.2 % 40-75 LYMPH% (test code=LYMPH%) 15.0 % 24-44 MONO% (test code=MONO%) 6.0 % 0-13 EOS% (test code=EOS%) 2.1 % 0-4 BASO % (test code=BASO%) 0.3 % 0-2 IG (test code=IG) 0 % 0-1 IG% (test code=IG%) 0.4 % 0-1 IG%=Metamyelocytes, Myelocytes, and Promyelocytes. (Immature neutrophils not including "bands".) > 3% IG indicates risk of sepsis NRBC% (test code=NRBC%) 0 /100 WBC ABS NEUT (test code=NEUT) 8.9 K/UL 1.2-7.2 BLOOD GAS [id number] 02:55:00* Test Item Value Reference Range Comments SITE (test code=SITE) FLORENCE SITE ALLENS (test code=ALLENS) NA O2 EQUIP (test code=O2 EQUIP) G5V O2-DEVICE FIO2 (test code=FIO2) 50% % SIMV (test code=SIMV) 12 PEEP (test code=PEEP) +5 PS (test code=PS) 5 VT (test code=VT) 700 VMIN (test code=VMIN) 8.3 PH (test code=BGPH) 7.45 7.35-7.45 PCO2 (test code=PCO2) 35 MMHG 34.0-45.0 PO2 (test code=PO2) 128 MMHG 79-87 HCO3 (test code=HCO3) 24.3 mmol/L 22.0-26.0 BE (test code=BE) 0.5 mmol/L -2.0-2.0 THB (test code=THB) 8.8 G/DL 12-16 % 02 HB (test code=ABGSAT) 96.2 % 96.0-100.0 %COHB (test code=BGCO) 1.0 % <1.5 % MET HB (test code=%MET HB) 0.5 % 0.4-1.5 CAO2 (test code=CAO2) 12.2 VOL% 15.7-21.6 PF/RATIO (test code=PF/RATIO) 256 ANTICOAG?: LAST DOSE?:SVO2 PANFILO [id number] 02:00:00* Test Item Value Reference Range Comments %O2 HB (test code=MV%O2 HB) 57.8 % 40.0-70.0 WHOLE BLOOD [id number] 21:35:00* Test Item Value Reference Range Comments WHOLE BLOOD GLUCOSE (test code=POC GLU) 151 MG/DL 70-99 WHOLE BLOOD [id number] 17:15:00* Test Item Value Reference Range Comments WHOLE BLOOD GLUCOSE (test code=POC GLU) 128 MG/DL 70-99 WHOLE BLOOD [id number] 17:15:00* Test Item Value Reference Range Comments WHOLE BLOOD GLUCOSE (test code=POC GLU) 117 MG/DL 70-99 WHOLE BLOOD [id number] 17:15:00* Test Item Value Reference Range Comments WHOLE BLOOD GLUCOSE (test code=POC GLU) 113 MG/DL 70-99 WHOLE BLOOD [id number] 17:15:00* Test Item Value Reference Range Comments WHOLE BLOOD GLUCOSE (test code=POC GLU) 111 MG/DL 70-99 WHOLE BLOOD [id number] 17:15:00* Test Item Value Reference Range Comments WHOLE BLOOD GLUCOSE (test code=POC GLU) 112 MG/DL 70-99 WHOLE BLOOD [id number] 17:15:00* Test Item Value Reference Range Comments WHOLE BLOOD GLUCOSE (test code=POC GLU) 108 MG/DL 70-99 WHOLE BLOOD [id number] 16:20:00* Test Item Value Reference Range Comments WHOLE BLOOD GLUCOSE (test code=POC GLU) 111 MG/DL 70-99 WHOLE BLOOD [id number] 16:20:00* Test Item Value Reference Range Comments WHOLE BLOOD GLUCOSE (test code=POC GLU) 101 MG/DL 70-99 WHOLE BLOOD [id number] 16:20:00* Test Item Value Reference Range Comments WHOLE BLOOD GLUCOSE (test code=POC GLU) 116 MG/DL 70-99 WHOLE BLOOD [id number] 16:20:00* Test Item Value Reference Range Comments WHOLE BLOOD GLUCOSE (test code=POC GLU) 95 MG/DL 70-99 WHOLE BLOOD [id number] 16:20:00* Test Item Value Reference Range Comments WHOLE BLOOD GLUCOSE (test code=POC GLU) 97 MG/DL 70-99 WHOLE BLOOD [id number] 16:20:00* Test Item Value Reference Range Comments WHOLE BLOOD GLUCOSE (test code=POC GLU) 113 MG/DL 70-99 WHOLE BLOOD [id number] 16:20:00* Test Item Value Reference Range Comments WHOLE BLOOD GLUCOSE (test code=POC GLU) 121 MG/DL 70-99 WHOLE BLOOD [id number] 16:20:00* Test Item Value Reference Range Comments WHOLE BLOOD GLUCOSE (test code=POC GLU) 117 MG/DL 70-99 WHOLE BLOOD [id number] 16:20:00* Test Item Value Reference Range Comments WHOLE BLOOD GLUCOSE (test code=POC GLU) 132 MG/DL 70-99 WHOLE BLOOD [id number] 16:20:00* Test Item Value Reference Range Comments WHOLE BLOOD GLUCOSE (test code=POC GLU) 136 MG/DL 70-99 WHOLE BLOOD [id number] 16:20:00* Test Item Value Reference Range Comments WHOLE BLOOD GLUCOSE (test code=POC GLU) 108 MG/DL 70-99 WHOLE BLOOD [id number] 16:20:00* Test Item Value Reference Range Comments WHOLE BLOOD GLUCOSE (test code=POC GLU) 120 MG/DL 70-99 WHOLE BLOOD [id number] 16:20:00* Test Item Value Reference Range Comments WHOLE BLOOD GLUCOSE (test code=POC GLU) 163 MG/DL 70-99 WHOLE BLOOD [id number] 16:20:00* Test Item Value Reference Range Comments WHOLE BLOOD GLUCOSE (test code=POC GLU) 167 MG/DL 70-99 WHOLE BLOOD [id number] 16:20:00* Test Item Value Reference Range Comments WHOLE BLOOD GLUCOSE (test code=POC GLU) 132 MG/DL 70-99 SVO2 PANFILO [id number] 15:27:00* Test Item Value Reference Range Comments %O2 HB (test code=MV%O2 HB) 56.3 % 40.0-70.0 ISTAT CG8+2018-10-09 13:30:00* Test Item Value Reference Range Comments SOURCE (test code=SOURCE) ART ISTATPH (test code=ISTATPH) 7.281 7.35-7.45 ISTATPCO (test code=ISTATPCO) 45.1 mm\\X8D\\Hg 35-45 ISTATPO2 (test code=ISTATPO2) 189 mm\\X8D\\Hg 80-100 ISTATBE (test code=ISTATBE) -5 mmol/L -2.0-2.0 ISTATHCO (test code=ISTATHCO) 21.2 mmol/L 22-26 ISTATTCO (test code=ISTATTCO) 23 mmol/L 22-30 ISTATSO2 (test code=ISTATSO2) 100 % 95-98 ISTATNA (test code=ISTATNA) 145 MMOL/L 137-145 ISTATK (test code=ISTATK) 3.8 MMOL/L 3.6-5.0 ISTIONCA (test code=ISTIONCA) 1.16 MMOL/L 1.12-1.32 ISTATGLU (test code=ISTATGLU) 107 MG/DL 65-110 ISTATHCT (test code=ISTATHCT) 37 %PCV 37.0-52.0 ISTATHGB (test code=ISTATHGB) 12.6 G/DL 12.0-18.0 ISTAT ACTIVATED CLOTTING [id number] 13:30:00* Test Item Value Reference Range Comments ISTATACT (test code=ISTATACT) 103 sec 79-149 ISTAT CG8+2018-10-09 13:30:00* Test Item Value Reference Range Comments SOURCE (test code=SOURCE) ART ISTATPH (test code=ISTATPH) 7.334 7.35-7.45 ISTATPCO (test code=ISTATPCO) 44.6 mm\\X8D\\Hg 35-45 ISTATPO2 (test code=ISTATPO2) 363 mm\\X8D\\Hg 80-100 ISTATBE (test code=ISTATBE) -2 mmol/L -2.0-2.0 ISTATHCO (test code=ISTATHCO) 23.7 mmol/L 22-26 ISTATTCO (test code=ISTATTCO) 25 mmol/L 22-30 ISTATSO2 (test code=ISTATSO2) 100 % 95-98 ISTATNA (test code=ISTATNA) 141 MMOL/L 137-145 ISTATK (test code=ISTATK) 4.4 MMOL/L 3.6-5.0 ISTIONCA (test code=ISTIONCA) 1.27 MMOL/L 1.12-1.32 ISTATGLU (test code=ISTATGLU) 127 MG/DL 65-110 ISTATHCT (test code=ISTATHCT) 32 %PCV 37.0-52.0 ISTATHGB (test code=ISTATHGB) 10.9 G/DL 12.0-18.0 ISTAT CG8+2018-10-09 13:30:00* Test Item Value Reference Range Comments SOURCE (test code=SOURCE) ART ISTATPH (test code=ISTATPH) 7.343 7.35-7.45 ISTATPCO (test code=ISTATPCO) 37.0 mm\\X8D\\Hg 35-45 ISTATPO2 (test code=ISTATPO2) 267 mm\\X8D\\Hg 80-100 ISTATBE (test code=ISTATBE) -5 mmol/L -2.0-2.0 ISTATHCO (test code=ISTATHCO) 20.1 mmol/L 22-26 ISTATTCO (test code=ISTATTCO) 21 mmol/L 22-30 ISTATSO2 (test code=ISTATSO2) 100 % 95-98 ISTATNA (test code=ISTATNA) 139 MMOL/L 137-145 ISTATK (test code=ISTATK) 4.9 MMOL/L 3.6-5.0 ISTIONCA (test code=ISTIONCA) 0.86 MMOL/L 1.12-1.32 ISTATGLU (test code=ISTATGLU) 136 MG/DL 65-110 ISTATHCT (test code=ISTATHCT) 30 %PCV 37.0-52.0 ISTATHGB (test code=ISTATHGB) 10.2 G/DL 12.0-18.0 ISTAT ACTIVATED CLOTTING [id number] 13:30:00* Test Item Value Reference Range Comments ISTATACT (test code=ISTATACT) 582 sec 79-149 ISTAT CG8+2018-10-09 13:30:00* Test Item Value Reference Range Comments SOURCE (test code=SOURCE) ART ISTATPH (test code=ISTATPH) 7.418 7.35-7.45 ISTATPCO (test code=ISTATPCO) 33.9 mm\\X8D\\Hg 35-45 ISTATPO2 (test code=ISTATPO2) 195 mm\\X8D\\Hg 80-100 ISTATBE (test code=ISTATBE) -2 mmol/L -2.0-2.0 ISTATHCO (test code=ISTATHCO) 21.9 mmol/L 22-26 ISTATTCO (test code=ISTATTCO) 23 mmol/L 22-30 ISTATSO2 (test code=ISTATSO2) 100 % 95-98 ISTATNA (test code=ISTATNA) 141 MMOL/L 137-145 ISTATK (test code=ISTATK) 4.3 MMOL/L 3.6-5.0 ISTIONCA (test code=ISTIONCA) 0.86 MMOL/L 1.12-1.32 ISTATGLU (test code=ISTATGLU) 142 MG/DL 65-110 ISTATHCT (test code=ISTATHCT) 31 %PCV 37.0-52.0 ISTATHGB (test code=ISTATHGB) 10.5 G/DL 12.0-18.0 ISTAT ACTIVATED CLOTTING [id number] 13:30:00* Test Item Value Reference Range Comments ISTATACT (test code=ISTATACT) 769 sec 79-149 ISTAT 8+2018-10-09 13:30:00* Test Item Value Reference Range Comments SOURCE (test code=SOURCE) ART ISTATPH (test code=ISTATPH) 7.355 7.35-7.45 ISTATPCO (test code=ISTATPCO) 35.7 mm\\X8D\\Hg 35-45 ISTATPO2 (test code=ISTATPO2) 336 mm\\X8D\\Hg 80-100 ISTATBE (test code=ISTATBE) -5 mmol/L -2.0-2.0 ISTATHCO (test code=ISTATHCO) 19.9 mmol/L 22-26 ISTATTCO (test code=ISTATTCO) 21 mmol/L 22-30 ISTATSO2 (test code=ISTATSO2) 100 % 95-98 ISTATNA (test code=ISTATNA) 139 MMOL/L 137-145 ISTATK (test code=ISTATK) 4.0 MMOL/L 3.6-5.0 ISTIONCA (test code=ISTIONCA) 0.87 MMOL/L 1.12-1.32 ISTATGLU (test code=ISTATGLU) 144 MG/DL 65-110 ISTATHCT (test code=ISTATHCT) 30 %PCV 37.0-52.0 ISTATHGB (test code=ISTATHGB) 10.2 G/DL 12.0-18.0 ISTAT ACTIVATED CLOTTING [id number] 13:30:00* Test Item Value Reference Range Comments ISTATACT (test code=ISTATACT) 483 sec 79-149 ISTAT 8+2018-10-09 13:30:00* Test Item Value Reference Range Comments SOURCE (test code=SOURCE) ART ISTATPH (test code=ISTATPH) 7.280 7.35-7.45 ISTATPCO (test code=ISTATPCO) 49.7 mm\\X8D\\Hg 35-45 ISTATPO2 (test code=ISTATPO2) 225 mm\\X8D\\Hg 80-100 ISTATBE (test code=ISTATBE) -4 mmol/L -2.0-2.0 ISTATHCO (test code=ISTATHCO) 23.3 mmol/L 22-26 ISTATTCO (test code=ISTATTCO) 25 mmol/L 22-30 ISTATSO2 (test code=ISTATSO2) 100 % 95-98 ISTATNA (test code=ISTATNA) 140 MMOL/L 137-145 ISTATK (test code=ISTATK) 3.4 MMOL/L 3.6-5.0 ISTIONCA (test code=ISTIONCA) 0.94 MMOL/L 1.12-1.32 ISTATGLU (test code=ISTATGLU) 111 MG/DL 65-110 ISTATHCT (test code=ISTATHCT) 39 %PCV 37.0-52.0 ISTATHGB (test code=ISTATHGB) 13.3 G/DL 12.0-18.0 ISTAT ACTIVATED CLOTTING [id number] 13:30:00* Test Item Value Reference Range Comments ISTATACT (test code=ISTATACT) 483 sec 79-149 ISTAT CG8+2018-10-09 13:30:00* Test Item Value Reference Range Comments SOURCE (test code=SOURCE) ART ISTATPH (test code=ISTATPH) 7.413 7.35-7.45 ISTATPCO (test code=ISTATPCO) 48.9 mm\\X8D\\Hg 35-45 ISTATPO2 (test code=ISTATPO2) 322 mm\\X8D\\Hg 80-100 ISTATBE (test code=ISTATBE) 5 mmol/L -2.0-2.0 ISTATHCO (test code=ISTATHCO) 31.2 mmol/L 22-26 ISTATTCO (test code=ISTATTCO) 33 mmol/L 22-30 ISTATSO2 (test code=ISTATSO2) 100 % 95-98 ISTATNA (test code=ISTATNA) 139 MMOL/L 137-145 ISTATK (test code=ISTATK) 3.8 MMOL/L 3.6-5.0 ISTIONCA (test code=ISTIONCA) 1.04 MMOL/L 1.12-1.32 ISTATGLU (test code=ISTATGLU) 105 MG/DL 65-110 ISTATHCT (test code=ISTATHCT) 44 %PCV 37.0-52.0 ISTATHGB (test code=ISTATHGB) 15.0 G/DL 12.0-18.0 ISTAT ACTIVATED CLOTTING [id number] 13:30:00* Test Item Value Reference Range Comments ISTATACT (test code=ISTATACT) 136 sec 79-149 CHEST 1 VIEW [id number] 09:49:00[address] [id number] IMAGING REPORTPatient Name: RONNY VELIZ EDate of Service: [id number]: 58 Sex: F Order #: [id number] Room: [facility] 2CVUDOB: 1960 X-Ray Number: [id number] Record Number: [id number] Hospital Number: [id number] Physician: ADELA NGUYENAROrdering Physician: YESENIA GARCIA THISTORY: post CABG. . Status post CABG. The later dependency. Chest tubemanagement.COMPARISON: 10/08/2018TECHNIQUE: Portable chest 1 viewFINDINGS:The life-support devices are unchanged for the cardiomediastinal silhouetteis stable. There is improved aeration of the lungs. There is mild left baseatelectasis. There is no effusion or pneumothorax.IMPRESSION:Mild left base atelectasis.Electronically Signed By: Cirilo Cardoso M.D., 10/09/2018 9:47 AMLegally authenticated by BEN KERR 2018-10-09 09:47:01WHOLE BLOOD [id number] 07:20:00* Test Item Value Reference Range Comments WHOLE BLOOD GLUCOSE (test code=POC GLU) 104 MG/DL 70-99 WHOLE BLOOD [id number] 07:20:00* Test Item Value Reference Range Comments WHOLE BLOOD GLUCOSE (test code=POC GLU) 105 MG/DL 70-99 WHOLE BLOOD [id number] 07:20:00* Test Item Value Reference Range Comments WHOLE BLOOD GLUCOSE (test code=POC GLU) 98 MG/DL 70-99 [id number] 04:10:00* Test Item Value Reference Range Comments MG (test code=MG) 2.5 mg/dL 1.6-2.3 [id number] 04:10:00* Test Item Value Reference Range Comments PHOSPHOR (test code=PHOSPHOR) 2.9 MG/DL 2.5-4.5 [id number] 04:09:00* Test Item Value Reference Range Comments SODIUM (test code=NA) 142 MMOL/L 137-145 K+ (test code=KSERUM) 4.6 MMOL/L 3.5-5.1 PLEASE NOTE NEW REFERENCE RANGE(S) IN EFFECT EFFECTIVE 02/06/2010 - NEW ANALYZER (Banter! 5600) CHLORIDE (test code=CL) 113 MMOL/L 98-107 CO2 (test code=CO2) 25 MMOL/L 22-30 BUN (test code=BUN) 15 MG/DL 7-17 CREA (test code=CREA) 0.6 MG/DL 0.7-1.2 GLUCOSE (test code=GLUCOSE) 125 MG/DL 70-99 Fasting glucose normal <100 MG/DL- [place] [employer] recommendation CALCIUM (test code=CABLOOD) 7.9 MG/DL 8.4-10.2 TOTPROT (test code=TOTPROT) 4.7 G/DL 6.3-8.2 ALBUMIN (test code=ALBSERUM) 2.6 G/DL 3.5-5.0 BILITOT (test code=BILITOT) 0.3 MG/DL 0.2-1.3 AST (test code=AST) 56 U/L 15-46 PHOSALK (test code=PHOSALK) 35 U/L 38-126 ALT (test code=ALT) 35 U/L 13-69 GFR (test code=GFR) 108 mL/min/1.73m2 A GFR of >90 mL/min/1.73m2 is considered normal. [id number] 04:01:00* Test Item Value Reference Range Comments WBC (test code=WBC) 17.4 K/UL 3.5-10.9 RBC (test code=RBC) 3.59 M/UL 4.0-5.0 HGB (test code=HGB) 10.7 G/DL 11.5-15.5 HCT (test code=HCT) 33.1 % 34-46 MCV (test code=MCV) 92.2 FL 80-98 MCH (test code=MCH) 29.8 PG 28-32 MCHC (test code=MCHC) 32.3 G/DL 32.5-36.5 RDW (test code=RDW) 15.6 % 11.5-14.5 PLT (test code=PLT) 218 K/UL 150-450 MPV (test code=MPV) 12.0 FL 7.4-10.4 MANDIFF (test code=MANDIFF) NO SCAN (test code=SCAN) NO NEUT% (test code=NEUT%) 82.9 % 40-75 LYMPH% (test code=LYMPH%) 9.2 % 24-44 MONO% (test code=MONO%) 7.2 % 0-13 EOS% (test code=EOS%) 0.1 % 0-4 BASO % (test code=BASO%) 0.2 % 0-2 IG (test code=IG) 0 % 0-1 IG% (test code=IG%) 0.4 % 0-1 IG%=Metamyelocytes, Myelocytes, and Promyelocytes. (Immature neutrophils not including "bands".) > 3% IG indicates risk of sepsis NRBC% (test code=NRBC%) 0 /100 WBC ABS NEUT (test code=NEUT) 14.4 K/UL 1.2-7.2 BLOOD GAS [id number] 03:24:00* Test Item Value Reference Range Comments SITE (test code=SITE) [place] SITE ALLENS (test code=ALLENS) NA O2 EQUIP (test code=O2 EQUIP) G5V O2-DEVICE FIO2 (test code=FIO2) 50% % SIMV (test code=SIMV) 12 PEEP (test code=PEEP) +5 PS (test code=PS) 5 VT (test code=VT) 700 VMIN (test code=VMIN) 8.4 PH (test code=BGPH) 7.44 7.35-7.45 PCO2 (test code=PCO2) 38 MMHG 34.0-45.0 PO2 (test code=PO2) 114 MMHG 79-87 HCO3 (test code=HCO3) 25.8 mmol/L 22.0-26.0 BE (test code=BE) 1.6 mmol/L -2.0-2.0 THB (test code=THB) 10.9 G/DL 12-16 % 02 HB (test code=ABGSAT) 96.2 % 96.0-100.0 %COHB (test code=BGCO) 0.8 % <1.5 % MET HB (test code=%MET HB) 0.6 % 0.4-1.5 CAO2 (test code=CAO2) 14.9 VOL% 15.7-21.6 PF/RATIO (test code=PF/RATIO) 228.0 ANTICOAG?: YES LAST DOSE?:BLOOD GAS [id number] 18:44:00* Test Item Value Reference Range Comments SITE (test code=SITE) [place] SITE PAM (test code=ALLENS) N/A O2 EQUIP (test code=O2 EQUIP) G5 O2-DEVICE FIO2 (test code=FIO2) 100 % SIMV (test code=SIMV) 12 PEEP (test code=PEEP) 5 PS (test code=PS) 5 VT (test code=VT) 700 PH (test code=BGPH) 7.29 7.35-7.45 PCO2 (test code=PCO2) 45 MMHG 34.0-45.0 PO2 (test code=PO2) 317 MMHG 79-87 HCO3 (test code=HCO3) 21.6 mmol/L 22.0-26.0 BE (test code=BE) -5.0 mmol/L -2.0-2.0 THB (test code=THB) 12.4 G/DL 12-16 % 02 HB (test code=ABGSAT) 96.4 % 96.0-100.0 %COHB (test code=BGCO) 1.1 % <1.5 % MET HB (test code=%MET HB) 0.8 % 0.4-1.5 CAO2 (test code=CAO2) 17.6 VOL% 15.7-21.6 PF/RATIO (test code=PF/RATIO) 317.0 ANTICOAG?: YES LAST DOSE?:CHEST 1 VIEW [id number] 18:16:[address] [id number] IMAGING REPORTPatient Name: RONNY VELIZ of Service: [id number]: 58 Sex: F Order #: [id number] Room: 220/ A 2CVUDOB: 1960 X-Ray N umber: [id number] Record Number: [id number] Hospital Number: [id number] [id number] Physician: PATRICK ABSAROrdering Physician: YESENIA GARCIA THISJo ORY: cabg will call. . Chest pain. Shortness of breath.COMPARISON: 10/07/2018T ECHNIQUE: Portable chest 1 viewFINDINGS:There is been interval sternotomy with median sternotomy wires. A leftsubclavian central line terminates in the proxima l SVC. A left subclavianSwan-Tia catheter terminates in the main pulmonary jenniffer ry. There is a leftchest tube along with an anterior mediastinal drain and pleur al drain. Anendotracheal tube terminates at the clavicular heads. The cardiomedi astinalsilhouette is enlarged. There is mild perihilar and bibasilar atelectasis .There is no effusion or pneumothorax.IMPRESSION:1. Status post interval CABG.2. Satisfactory placement of life-support devices.Electronically Signed By: Cirilo Cardoso M.D., 10/08/2018 6:14 PMLegally authenticated by BEN KERR 10-08 18:14:[id number] 17:39:00* Test Item Value Reference Range Comments WBC (test code=WBC) 31.2 K/UL 3.5-10.9 CHECKED x2 RBC (test code=RBC) 4.02 M/UL 4.0-5.0 HGB (test code=HGB) 12.2 G/DL 11.5-15.5 HCT (test code=HCT) 37.3 % 34-46 MCV (test code=MCV) 92.8 FL 80-98 MCH (test code=MCH) 30.3 PG 28-32 MCHC (test code=MCHC) 32.7 G/DL 32.5-36.5 RDW (test code=RDW) 15.1 % 11.5-14.5 PLT (test code=PLT) 225 K/UL 150-450 MPV (test code=MPV) 11.4 FL 7.4-10.4 MANDIFF (test code=MANDIFF) NO SCAN (test code=SCAN) YES NEUT% (test code=NEUT%) 85.4 % 40-75 LYMPH% (test code=LYMPH%) 6.7 % 24-44 MONO% (test code=MONO%) 6.2 % 0-13 EOS% (test code=EOS%) 0.4 % 0-4 BASO % (test code=BASO%) 0.3 % 0-2 IG (test code=IG) 0 % 0-1 IG% (test code=IG%) 1.0 % 0-1 IG%=Metamyelocytes, Myelocytes, and Promyelocytes. (Immature neutrophils not including "bands".) > 3% IG indicates risk of sepsis NRBC% (test code=NRBC%) 0 /100 WBC PLT-EST (test code=PLT-EST) NORMAL NORMAL ABS NEUT (test code=NEUT) 26.7 K/UL 1.2-7.2 BMP, BASIC METABOLIC [id number] 17:36:00* Test Item Value Reference Range Comments SODIUM (test code=NA) 141 MMOL/L 137-145 K+ (test code=KSERUM) 3.9 MMOL/L 3.5-5.1 PLEASE NOTE NEW REFERENCE RANGE(S) IN EFFECT EFFECTIVE 02/06/2010 - NEW ANALYZER (nPickerS 5600) CHLORIDE (test code=CL) 117 MMOL/L 98-107 CO2 (test code=CO2) 22 MMOL/L 22-30 BUN (test code=BUN) 12 MG/DL 7-17 CREA (test code=CREA) 0.6 MG/DL 0.7-1.2 GLUCOSE (test code=GLUCOSE) 104 MG/DL 70-99 Fasting glucose normal <100 MG/DL- [place] [employer] recommendation CALCIUM (test code=CABLOOD) 7.5 MG/DL 8.4-10.2 GFR (test code=GFR) 108 mL/min/1.73m2 A GFR of >90 mL/min/1.73m2 is considered normal. WHOLE BLOOD [id number] 12:20:00* Test Item Value Reference Range Comments WHOLE BLOOD GLUCOSE (test code=POC GLU) 101 MG/DL 70-99 [id number] 11:20:00* Test Item Value Reference Range Comments PTT (test code=PTT) 36.6 SECONDS 24.4-36.3 HEPARIN THERAPEUTIC RANGE 57-92 SECONDS WHOLE BLOOD [id number] 10:45:00* Test Item Value Reference Range Comments WHOLE BLOOD GLUCOSE (test code=POC GLU) 96 MG/DL 70-99 WHOLE BLOOD [id number] 05:55:00* Test Item Value Reference Range Comments WHOLE BLOOD GLUCOSE (test code=POC GLU) 84 MG/DL 70-99 [id number] 03:21:00* Test Item Value Reference Range Comments MG (test code=MG) 1.8 mg/dL 1.6-2.3 LIPID [id number] 03:21:00* Test Item Value Reference Range Comments CHOLEST (test code=CHOLEST) 122 MG/DL 0-200 TRIGLYCE (test code=TRIGLYCE) 182 MG/DL 0-150 HDL (test code=HDL) 37 MG/DL 35-90 NEGATIVE RISK FACTOR FOR HEART DISEASE IF HDL >/=60 mg/dl MAJOR RISK FACTOR FOR HEART DISEASE IF HDL <40 mg/dL CALC LDL (test code=CALC LDL) 49 MG/DL <100 DIRECT [id number] 03:21:00* Test Item Value Reference Range Comments DIR LDL (test code=LDL) 79 MG/DL 0-<100 [id number] 03:21:00* Test Item Value Reference Range Comments SODIUM (test code=NA) 142 MMOL/L 137-145 K+ (test code=KSERUM) 3.4 MMOL/L 3.5-5.1 PLEASE NOTE NEW REFERENCE RANGE(S) IN EFFECT EFFECTIVE 02/06/2010 - NEW ANALYZER (Banter! 5600) CHLORIDE (test code=CL) 99 MMOL/L 98-107 CO2 (test code=CO2) 35 MMOL/L 22-30 BUN (test code=BUN) 16 MG/DL 7-17 CREA (test code=CREA) 0.6 MG/DL 0.7-1.2 GLUCOSE (test code=GLUCOSE) 79 MG/DL 70-99 Fasting glucose normal <100 MG/DL- [place] [employer] recommendation CALCIUM (test code=CABLOOD) 8.8 MG/DL 8.4-10.2 TOTPROT (test code=TOTPROT) 6.6 G/DL 6.3-8.2 ALBUMIN (test code=ALBSERUM) 3.7 G/DL 3.5-5.0 BILITOT (test code=BILITOT) 0.5 MG/DL 0.2-1.3 AST (test code=AST) 49 U/L 15-46 PHOSALK (test code=PHOSALK) 56 U/L 38-126 ALT (test code=ALT) 50 U/L 13-69 GFR (test code=GFR) 108 mL/min/1.73m2 A GFR of >90 mL/min/1.73m2 is considered normal. PROBRAIN NATRIURETIC [id number] 03:08:00* Test Item Value Reference Range Comments NT-PROBNP (test code=PROBNP) 1320 pg/mL Exclusion for heart failure for patients of all ages is 300 pg/mL. Inclusion for heart failure for patients age <50 is 450 pg/mL; for patients age 50-75 is 900 pg/mL; for patients age >75 is 1800 pg/ mL. [id number] 02:18:00* Test Item Value Reference Range Comments PTT (test code=PTT) 42.8 SECONDS 24.4-36.3 HEPARIN THERAPEUTIC RANGE 57-92 SECONDS PROTHROMBIN TIME WITH [id number] 02:15:00* Test Item Value Reference Range Comments PROTHROMBIN TIME (test code=PT) 13.5 SECONDS 12.0-14.6 INR Usual Range=2 to 3 for prevention of deep vein thrombosis (DVT) INR (test code=INR) 1.0 [id number] 02:10:00* Test Item Value Reference Range Comments WBC (test code=WBC) 8.1 K/UL 3.5-10.9 RBC (test code=RBC) 5.06 M/UL 4.0-5.0 HGB (test code=HGB) 14.8 G/DL 11.5-15.5 HCT (test code=HCT) 46.0 % 34-46 MCV (test code=MCV) 90.9 FL 80-98 MCH (test code=MCH) 29.2 PG 28-32 MCHC (test code=MCHC) 32.2 G/DL 32.5-36.5 RDW (test code=RDW) 15.4 % 11.5-14.5 PLT (test code=PLT) 260 K/UL 150-450 MPV (test code=MPV) 11.2 FL 7.4-10.4 MANDIFF (test code=MANDIFF) NO SCAN (test code=SCAN) NO NEUT% (test code=NEUT%) 62.7 % 40-75 LYMPH% (test code=LYMPH%) 25.7 % 24-44 MONO% (test code=MONO%) 7.8 % 0-13 EOS% (test code=EOS%) 3.2 % 0-4 BASO % (test code=BASO%) 0.4 % 0-2 IG (test code=IG) 0 % 0-1 IG% (test code=IG%) 0.2 % 0-1 IG%=Metamyelocytes, Myelocytes, and Promyelocytes. (Immature neutrophils not including "bands".) > 3% IG indicates risk of sepsis NRBC% (test code=NRBC%) 0 /100 WBC ABS NEUT (test code=NEUT) 5.0 K/UL 1.2-7.2 BLOOD GAS [id number] 01:50:00* Test Item Value Reference Range Comments SITE (test code=SITE) [facility] SITE ALLEN (test code=ALLENS) NA O2 EQUIP (test code=O2 EQUIP) NC O2-DEVICE L/M (test code=L/M) 2L L/M FIO2 (test code=FIO2) 28% % PH (test code=BGPH) 7.43 7.35-7.45 PCO2 (test code=PCO2) 54 MMHG 34.0-45.0 PO2 (test code=PO2) 72 MMHG 79-87 HCO3 (test code=HCO3) 35.8 mmol/L 22.0-26.0 BE (test code=BE) 9.3 mmol/L -2.0-2.0 THB (test code=THB) 15.4 G/DL 12-16 % 02 HB (test code=ABGSAT) 89.9 % 96.0-100.0 %COHB (test code=BGCO) 4.8 % <1.5 % MET HB (test code=%MET HB) 0.4 % 0.4-1.5 CAO2 (test code=CAO2) 19.5 VOL% 15.7-21.6 PF/RATIO (test code=PF/RATIO) 257.0 ANTICOAG?: YES LAST DOSE?:[id number] 23:27:00* Test Item Value Reference Range Comments GLUCOSE (test code=URGLU) NEGATIVE MG/DL NEG-100 BILIRUBN (test code=URBILI) NEGATIVE NEGATIVE KETONE (test code=URKET) NEGATIVE MG/DL NEGATIVE BLOOD (test code=URBLD) NEGATIVE UR PH (test code=URPH) 7.0 5.0-7.5 PROTEIN (test code=URPRO) NEGATIVE MG/DL NEGATIVE NITRITES (test code=URNIT) NEGATIVE NEGATIVE UROBILINGEN (test code=URURO) 0.2 EU/DL 0.2-1.0 LEUKOCYT (test code=URLEU) SMALL NEGATIVE UA COLOR (test code=UA COLOR) YELLOW YELLOW CLARITY (test code=CLARITY) CLEAR CLEAR SP GRAV (test code=URSPGRAV) 1.028 1.000-1.025 UAMICRO (test code=UAMICRO) YES WBC (test code=URWBC) 8 /HPF 0-5 RBC (test code=URRBC) 0 /HPF 0-2 CASTS (test code=CAST) 2 /LPF 0-3 UR EPI (test code=EPI) 26 /LPF BACTERIA (test code=BACTERIA) NEGATIVE NONE WHOLE BLOOD [id number] 22:00:00* Test Item Value Reference Range Comments WHOLE BLOOD GLUCOSE (test code=POC GLU) 96 MG/DL 70-99 [id number] 21:35:00* Test Item Value Reference Range Comments BLOOD TYPE (test code=TYPE) A Rh Positive ANTIBODY SCREEN (test code=SCREEN) NEGATIVE NEGATIVE [id number] 20:23:00* Test Item Value Reference Range Comments PTT (test code=PTT) 26.2 SECONDS 24.4-36.3 HEPARIN THERAPEUTIC RANGE 57-92 SECONDS CHEST 1 VIEW [id number] 13:23:[address] [id number] IMAGING REPORTPatient Name: RONNY VELIZ of Service: [id number]: 58 Sex: F Order #: [id number] Room: ERSDOB: 1960 X-Ray Number: [id number] Record Number: [id number] Hospital Number: [id number] Physician: VIDA MONTOYA Physician: VIDA MONTOYA UPRIGHT PORTABLE CHEST at 1312 hours 10/07/2018:CLINICAL HISTORY: Chest Pain radiates to left armTECHNIQUE: One viewFINDINGS:There are monitor leads seen on the chest.The heart and vascularity within normal limits and the lungs are clear.The bony thorax is intact.Changes of previous fixation of lower cervical spine are present.Impression: Normal chest with no significant change since 03/14/2014.Electronically Signed By: Duke Esquivel M.D., 10/07/2018 1:21 PMLegally authenticated by SARA Pedro 2018-10-07 13:21:03CKMB 2018-10-07 13:17:00* Test Item Value Reference Range Comments %CKMB (test code=%MB) 3.7 % CKMB (test code=CKMB) 3.0 NG/ML 0.22-2.4 RESULTS VERIFIED.C'd TO ER/A. [facility]/13:18/ea CK (test code=CK) 82 U/L 30-135 CKINTERP (test code=CKINTERP) POSITIVE Negative RESULTS VERIFIED.[facility]. [facility]/13:18/eaPROBRAIN NATRIURETIC PEPTIDE 2018-10-07 13:16:00* Test Item Value Reference Range Comments NT-PROBNP (test code=PROBNP) 361 pg/mL Exclusion for heart failure for patients of all ages is 300 pg/mL. Inclusion for heart failure for patients age <50 is 450 pg/mL; for patients age 50-75 is 900 pg/mL; for patients age >75 is 1800 pg/ mL. [id number] 13:10:00* Test Item Value Reference Range Comments PTT (test code=PTT) 27.5 SECONDS 24.4-36.3 HEPARIN THERAPEUTIC RANGE 57-92 SECONDS PROTHROMBIN TIME WITH [id number] 13:10:00* Test Item Value Reference Range Comments PROTHROMBIN TIME (test code=PT) 13.4 SECONDS 12.0-14.6 INR Usual Range=2 to 3 for prevention of deep vein thrombosis (DVT) INR (test code=INR) 1.0 ISTAT [id number] [id number] 12:50:00* Test Item Value Reference Range Comments ISTATNA (test code=ISTATNA) 142 MMOL/L 137-145 ISTATK (test code=ISTATK) 3.9 MMOL/L 3.6-5.0 ISTATCL (test code=ISTATCL) 99 MMOL/L 98-107 ISTIONCA (test code=ISTIONCA) 1.12 MMOL/L 1.12-1.32 ISTCO2 (test code=ISTCO2) 28 MMOL/L 22-30 ISTATGLU (test code=ISTATGLU) 206 MG/DL 65-110 ISTATBUN (test code=ISTATBUN) 20.0 MG/DL 7.0-20.0 ISTCREA (test code=ISTCREA) 0.6 MG/DL 0.7-1.5 ISTATHCT (test code=ISTATHCT) 47 %PCV 37.0-52.0 ISTATHGB (test code=ISTATHGB) 16.0 G/DL 12.0-18.0 ISTANGAP (test code=ISTANGAP) 20 MMOL/L TROPONIN [id number] 12:50:00* Test Item Value Reference Range Comments TROPER (test code=TROPER) 0.11 NG/ML 0.0-0.08 [id number] 12:47:00* Test Item Value Reference Range Comments WBC (test code=WBC) 9.7 K/UL 3.5-10.9 RBC (test code=RBC) 4.87 M/UL 4.0-5.0 HGB (test code=HGB) 14.4 G/DL 11.5-15.5 HCT (test code=HCT) 46.6 % 34-46 MCV (test code=MCV) 95.7 FL 80-98 MCH (test code=MCH) 29.6 PG 28-32 MCHC (test code=MCHC) 30.9 G/DL 32.5-36.5 RDW (test code=RDW) 15.5 % 11.5-14.5 PLT (test code=PLT) 237 K/UL 150-450 MPV (test code=MPV) 11.2 FL 7.4-10.4 MANDIFF (test code=MANDIFF) NO SCAN (test code=SCAN) NO NEUT% (test code=NEUT%) 84.1 % 40-75 LYMPH% (test code=LYMPH%) 9.4 % 24-44 MONO% (test code=MONO%) 4.8 % 0-13 EOS% (test code=EOS%) 1.0 % 0-4 BASO % (test code=BASO%) 0.4 % 0-2 IG (test code=IG) 0 % 0-1 IG% (test code=IG%) 0.3 % 0-1 IG%=Metamyelocytes, Myelocytes, and Promyelocytes. (Immature neutrophils not including "bands".) > 3% IG indicates risk of sepsis NRBC% (test code=NRBC%) 0 /100 WBC ABS NEUT (test code=NEUT) 8.1 K/UL 1.2-7.2 Z-ORG SCREEN MAMMO W/CAD [id number] 10:53:[address] [id number] IMAGING REPORTPatient Name: RONNY VELIZ EDate of Service: [id number]: 57 Sex: F Order #: [id number] Room: OPODOB: 1960 X-Ray Number: [id number] Record Number: [id number] Hospital Number: [id number] Physician: Ananya ANDRADE Physician: PARUL ANDRADE BILATERAL SCREENING MAMMOGRAM WITH 3-D TOMOSYNTHESIS 04/05/2018HISTORY: Breast cancer screening.TECHNIQUE: Standard digital screening mammogram images were obtained. 3-Dtomosynthesis images are also evaluated.COMPARISON: Multiple exams dating back to 2012.DIRECTOR OF IT OPERATIONS: Jayne Martinez (Jacqueline ) (M) ARRT.FINDINGS: There are scattered areas of fibroglandular density in bothbreasts. Well-defined subcentimeter nodular densities andmicrocalcifications scattered throughout the breasts are stable and benignin appearance. No clearly suspicious new process.IMPRESSION:BI-RADS Category 2, benign findings.Routine annual follow-up recommended.PLEASE NOTE:1. In up to 10% of patients, cancers are not visible on mammography.2. If a suspicious lum p is palpated, biopsy should not be deferredbecause of a negative mammogram.MAMM OGRAPHY AT [facility] IS ACCREDITED BY [facility]ITALSMikki OF RADIOLOGYTHANK YOU FOR YOUR OUTPATIENT REFERRALjhbElectronically Signed By: Delmar Cristobal M.D., 04/05/2018 10:50 AMLegally authenticated by ISIDRO AGUILAR 2017 10:50:43US DUPLX ART FLOW, ABD/PELV/[id number] 12:57:19US KIDNEY BILATERAL, US DUPLX ART FLOW, ABD/PELV/RENLHISTORY: Kidney failure, hy pertension, diabetesCOMPARISON: None availableTECHNIQUE: Real-time sonographic i mages of the kidneys and urinarybladder acquired along with color and spectral D oppler analysis of therenal arterial vasculature.FINDINGS: Right kidney measures 11.8 x 4.5 x 5.5 cm with the left kidneymeasuring 11.8 x 5.8 x 6.0 cm. Cortical thickness is maintainedbilaterally. No hydronephrosis, shadowing nephrolithiasi s, or renalmass. Sampled urinary bladder unremarkable. Abdominal aorta/IVCpartia lly obscured by overlying bowel gas.Renal artery peak systolic velocities, wavef orms, and associated aorticratios are within normal limits bilaterally. Sampled arcuate arteryresistive indices also unremarkable. Bilateral renal veins are pat ent.IMPRESSION: 1. No evidence of obstructive uropathy.2. No Doppler evidence to suggest hemodynamically significant renalartery stenosis.US KIDNEY BILATERAL 2017-10-15 12:57:19US KIDNEY BILATERAL, US DUPLX ART FLOW, ABD/PELV/RENLHISTORY: Kidney failure, hypertension, diabetesCOMPARISON: None availableTECHNIQUE: Real- time sonographic images of the kidneys and urinarybladder acquired along with color and spectral Doppler analysis of therenal arterial vasculature.FINDINGS: Right kidney measures 11.8 x 4.5 x 5.5 cm with the left kidneymeasuring 11.8 x 5.8 x 6.0 cm. Cortical thickness is maintainedbilaterally. No hydronephrosis, shadowing nephrolithiasis, or renalmass. Sampled urinary bladder unremarkable. Abdominal aorta/IVCpartially obscured by overlying bowel gas.Renal artery peak systolic velocities, waveforms, and associated aorticratios are within normal limits bilaterally. Sampled arcuate arteryresistive indices also unremarkable. Bilateral renal veins are patent.IMPRESSION: 1. No evidence of obstructive uropathy.2. No Doppler evidence to suggest hemodynamically significant renalartery stenosis.XR CHEST 1 [id number] 19:21:55CHEST SINGLE VIEW:COMPARISON: 12/21/2016CLINICAL INFORMATION: Fell, weak. The right diaphragm is elevated. Heart size is at the upper limits ofnormal, accentuated by technique. The lungs are grossly clear. There isno pleural abnormality. IMP RESSION: No acute cardiopulmonary process is identified.CT HEAD OR BRAIN WO [id number] 19:06:48CT BRAIN WITHOUT CONTRAST:COMPARISON: NoneCLINICAL INFORMATION: Dizzy. The study was performed within 24 hours ofthe patient's arrival at the hospital.Axial images of the brain were obtained without contrast administration.Radiation dose lowering techniques were used according to ALARAprinciple.The ventricles are normal in size and configuration. There ishypoattenuation in the right periventricular white matter near theanterior and posterior horns of the lateral ventricle that most likelyrepresents ischemic sequelae. There is no intra-cranial hemorrhage ormass-effect. There are no extra-axial fluid collections. There aredecreased number of right mastoid air cells that could indicate sequelaeof chronic mastoiditis. There is layering fluid in the right maxillarysinus.IMPRESSION: 1. Hypoattenuation in the right periventricular white matter, likelychronic ischemic sequelae.2. There is no acute intracranial process.3. Right maxillary sinus fluid.4. Mastoid asymmetry as noted above possibly indicating sequelae ofchronic right mastoiditis.MODIFIED BARIUM [id number] 15:31:[address] [id number] IMAGING REPORTPatient Name: RONNY VELIZ of Service: [id number]: 57 Sex: F Order #: [id number] Room: OPEDOB: 1960 X-Ray Number: [id number] Record Number: [id number] Hospital Number: [id number] Physician: DIMITRIS GARCIAOrdering Physician: KELLIE GARCIAEMODIZOYA BARIUM SWALLOW:CLINICAL HISTORY: DysphagiaTECHNIQUE: Fluoroscopy with video recording was provided to the speechpathologist by the radiologist. The patient was administered thin liquid,thickened liquid barium mixed with pudding and barium coated vanill awafer.Findings: The patient is able swallow all contrast media without evidence of penetration or aspiration.She was also administered a barium pill which she s wallowed uneventfully.Fluoroscopic time was 54 seconds.Electronically Signed By: Duke Esquivel M.D., 09/21/2017 3:29 PMLegally authenticated by SARA Pedro 2017-09-21 15:29:17HEPATITIS C ANTIBODY [id number] 14:04:00* Test Item Value Reference Range Comments SCRN HCV (test code=SCRN HCV) REACTIVE NEGATIVE Hepatitis C Antibody test is for screening purposes only. All reactives will be confirmed by additional testing. ER SCREEN FOR HIV 14:04:00* Test Item Value Reference Range Comments HIV 1/2 AB (test code=SCRN HIV) NONREACTIVE NONREACTIVE This test is used for SCREENING purposes only. All reactive results are prelimenary and confirmation results will follow. [id number] 18:55:00* Test Item Value Reference Range Comments GLUCOSE (test code=URGLU) NEGATIVE MG/DL NEG-100 BILIRUBN (test code=URBILI) NEGATIVE NEGATIVE KETONE (test code=URKET) NEGATIVE MG/DL NEGATIVE BLOOD (test code=URBLD) NEGATIVE UR PH (test code=URPH) 5.5 5.0-7.5 PROTEIN (test code=URPRO) NEGATIVE MG/DL NEGATIVE NITRITES (test code=URNIT) NEGATIVE NEGATIVE UROBILINGEN (test code=URURO) 0.2 EU/DL 0.2-1.0 LEUKOCYT (test code=URLEU) SMALL NEGATIVE UA COLOR (test code=UA COLOR) YELLOW YELLOW CLARITY (test code=CLARITY) CLEAR CLEAR SP GRAV (test code=URSPGRAV) 1.020 1.000-1.025 UAMICRO (test code=UAMICRO) YES WBC (test code=URWBC) 5 /HPF 0-5 RBC (test code=URRBC) 2 /HPF 0-2 CASTS (test code=CAST) 1 /LPF 0-3 UR EPI (test code=EPI) >50 /LPF BACTERIA (test code=BACTERIA) TRACE NONE [id number] 18:53:00* Test Item Value Reference Range Comments SODIUM (test code=NA) 142 MMOL/L 137-145 K+ (test code=KSERUM) 5.2 MMOL/L 3.5-5.1 PLEASE NOTE NEW REFERENCE RANGE(S) IN EFFECT EFFECTIVE 02/06/2010 - NEW ANALYZER (nPickerS [id number]) CHLORIDE (test code=CL) 100 MMOL/L 98-107 CO2 (test code=CO2) 28 MMOL/L 22-30 BUN (test code=BUN) 45 MG/DL 7-17 CREA (test code=CREA) 1.2 MG/DL 0.7-1.2 GLUCOSE (test code=GLUCOSE) 92 MG/DL 70-99 Fasting glucose normal <100 MG/DL- [employer] recommendation CALCIUM (test code=CABLOOD) 9.6 MG/DL 8.4-10.2 TOTPROT (test code=TOTPROT) 7.7 G/DL 6.3-8.2 ALBUMIN (test code=ALBSERUM) 4.4 G/DL 3.5-5.0 BILITOT (test code=BILITOT) 0.5 MG/DL 0.2-1.3 AST (test code=AST) 35 U/L 15-46 PHOSALK (test code=PHOSALK) 46 U/L 38-126 ALT (test code=ALT) 36 U/L 13-69 GFR (test code=GFR) 49 mL/min/1.73m2 A GFR of >90 mL/min/1.73m2 is considered normal. [id number] 18:53:00* Test Item Value Reference Range Comments LIPASE (test code=LIPA) 230 U/L 23-300 [id number] 18:44:00* Test Item Value Reference Range Comments WBC (test code=WBC) 7.5 K/UL 3.5-10.9 RBC (test code=RBC) 4.74 M/UL 4.0-5.0 HGB (test code=HGB) 14.6 G/DL 11.5-15.5 HCT (test code=HCT) 45.1 % 34-46 MCV (test code=MCV) 95.1 FL 80-98 MCH (test code=MCH) 30.8 PG 28-32 MCHC (test code=MCHC) 32.4 G/DL 32.5-36.5 RDW (test code=RDW) 13.3 % 11.5-14.5 PLT (test code=PLT) 299 K/UL 150-450 MPV (test code=MPV) 10.6 FL 7.4-10.4 MANDIFF (test code=MANDIFF) NO SCAN (test code=SCAN) NO NEUT% (test code=NEUT%) 57.9 % 40-75 LYMPH% (test code=LYMPH%) 32.7 % 24-44 MONO% (test code=MONO%) 7.2 % 0-13 EOS% (test code=EOS%) 1.2 % 0-4 BASO % (test code=BASO%) 0.7 % 0-2 IG% (test code=IG%) 0.3 % 0-1 IG%=Metamyelocytes, Myelocytes, and Promyelocytes. (Immature neutrophils not including "bands".) > 3% IG indicates risk of sepsis NRBC% (test code=NRBC%) 0 /100 WBC ABS NEUT (test code=NEUT) 4.3 K/UL 1.2-7.2 MRI BRAIN [id number] 13:04:[address] [id number] IMAGING REPORTPatient Name: RONNY VELIZ of Service: [id number]: 56 Sex: F Order #: [id number] Room: OPODOB: 1960 X-Ray Number: [id number] Record Number: [id number] Hospital Number: [id number] Physician: CIRILO KOLB Physician: CIRILO KOLB brain with and without contrast 10:14 AMHistory: Syncope, left carotid stenosisFindings:There is diffuse cortical atrophy.Periventricular and subcortical white matter changes are technicallynonspecific although these suggest chronic small vessel gliosis.There is no mass effect or midline shift present.There is no extra-axial fluid c ollection, intracranial hemorrhage orhydrocephalus.Enhancement pattern is physio logic. There are no enhancing mass lesion.Diffusion-weighted imaging demonstrate s no evidence for acute infarction.Impression:Suspected chronic ischemic changes with diffuse cortical atrophy.No acute abnormality is detected.Electronically S igned By: Andrzej Avila M.D., 01/07/2017 1:02 PMLegally authenticated by ULI SOOD 2017-01-07 13:02:2250383& [id number] 16:48:40CHEST 2 VIEWS:CLINICAL HISTORY: Preoperative respiratory examination. Cough. Diabetes.Hypertension. Tobacco use.Comparison is made to the previous examination dated September 25, 2015.Cardiac silhouette size and pulmonary vascularity are normal. There areno acute infiltrates or pleural effusions. Anterior fixation plateprojects over the partially visualized lower cervical spine. There isminor elevation of the right hemidiaphragm.IMPRESSION:1. 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 There is associated spondylosis and discspace narrowing.T11-12 and T12-L1 demonstrate mild bulges and minimal spondylosis.L1-2 demonstrates no compressive disc abnormality.L2-3 demonstrates very minimal retrolisthesis of L2 relative to L3, mildspondylosis, disc space narrowing and diffuse disc bulging which isslightly eccentric leftward causing mild to moderate left and right neuralforaminal narrowing. There is mild facet and ligamentum flavum hypertrophywith mild cent ral stenosis. AP canal diameter measuring approximately 11mm. There is a tiny an nular fissure at this level both anteriorly andposteriorly.L4-5 demonstrates mil d diffuse disc bulging. Facet and ligamentum flavumhypertrophy contribute to mil d right and moderate left neural foraminalnarrowing.Tiny annular fissure on the left. AP canal diameter is approximately 11 mm.L5-S1 demonstrates mild facet and ligamentum flavum hypertrophy withoutsubstantial central or neural foraminal st enosis.There are no fractures.Impression:Multilevel disc bulging.Incompletely as sessed disc herniation at T10-11 which at least nearly abutsthe distal cord.Neur al foraminal and central stenosis as discussed above level by level.There is no acute bony abnormality seen.Electronically Signed By: Andrzej Avila M.D., 2016 7:47 PMLegally authenticated by ULI PICKETT 2016-11-03 19:47:57
--- OUTSIDE RECORDS SUMMARY | 2019-05-01 15:36 | XMS REPORT | Summary of Care ---
Author Author [facility] - Health Organization [facility] - Health Address Unknown Phone Unavailable Care Team Providers Care Electroneurodiagnostic Technician Name Role Phone Pete Ramos PCP Unavailable Yamil Junior MD Unavailable Emili Paez Unavailable Reason for Visit * Reason Comments Refill Request Encounter Details Care Team Description Date Type Department Micheal Giron MD [id number] [place], [place] [id number] Refill Request 02/09/2019 Telephone [facility] [address] [place] [address] Allergies Comments Active Allergy Reactions Severity Noted Date Levofloxacin Rash 03/29/2013 Penicillins Unknown - See 03/29/2013 comments documented as of this encounter (statuses as of 02/10/2019) Medications End Date Status Medication Sig Dispensed Refills Start Date Active traZODONE (DESYREL) 100 Take 200 mg 0 mg tablet by mouth at bedtime. Active diltiazem (CARDIZEM CD) Take 240 mg 0 240 mg 24 hr capsule by mouth daily. Active aspirin 81 mg chewable Take 81 mg by 0 tablet mouth daily. Active clopidogrel (PLAVIX) 75 Take 75 mg by 0 mg tablet mouth daily. Active Insulin Glargine (LANTUS inject 82 0 SOLOSTAR) 100 unit/mL (3 Units under mL) injection the skin 2 (two) times daily with meals. Active gabapentin 400 mg capsule Take 1 0 capsule by 6 mouth 2 (two) times daily. Active lisinopril 5 mg tablet Take 1 tablet 0 by mouth 6 daily. Active fenofibrate 145 mg tablet TAKE 1 TABLET 11 EVERY DAY 7 Active ABILIFY 20 mg tablet 0 7 Active atorvastatin 10 mg tablet 0 7 Active benztropine 1 mg tablet 0 7 Active TRUE METRIX GLUCOSE TEST 0 STRIP strip 7 Active diclofenac 3 % gel 0 7 Active ADVAIR DISKUS 250-50 0 mcg/dose inhalation disk 7 Active lidocaine 5 % ointment 0 7 Active metFORMIN 500 mg tablet 0 7 Active BD INSULIN PEN NEEDLE UF 0 31 gauge x 5/16" Ndle 7 Active traMADOL 50 mg tablet 0 7 Active ns-[id number]-CU-[id number]-[id number]-jod-epa- Take by 0 fish (CARDIAMIN) 200 mouth 2 (two) mcg-500 unit-200 mg Cap times daily. Active Alpha Lipoic Acid 200 mg Take by 0 Tab mouth daily. Active PROAIR HFA 90 0 mcg/actuation inhaler 8 Active VITAMIN D2 50,000 unit Take 1 1 capsule 2 capsuleIndications: capsule by 8 Vitamin D deficiency mouth monthly. Active nicotine polacrilex Place 4 mg in 0 (NICORETTE) 2 mg lozenge cheeks as needed for Smoking cessation. Active fluticasone 50 Use 1 [place] 16 g 6 mcg/actuation nasal spray in each 8 nostril 2 (two) times daily. Active RANITIDINE 300 mg tablet TAKE 1 TABLET 90 tablet 1 BY MOUTH AT 8 BEDTIME Active glipiZIDE XL 2.5 mg 24 hr 0 tablet 8 Active PROTONIX 40 mg 0 delayed-release 8 suspension Active ARIPiprazole 15 mg tablet 0 9 Active atorvastatin 80 mg tablet 0 9 Active benztropine 2 mg tablet 0 9 Active ADVAIR HFA 115-21 0 mcg/actuation inhaler 9 Active gabapentin 800 mg tablet 0 9 Active TRUEPLUS LANCETS 33 gauge 0 Misc 9 Active lisinopril 10 mg tablet 0 9 Active nortriptyline 10 mg 0 capsule 9 Active traZODone 150 mg tablet 0 9 Active AZELASTINE 137 mcg (0.1 USE 2 30 mL 1 %) nasal spray SPRAY(S) IN 9 EACH NOSTRIL TWICE DAILY Active acetaminophen-codeine Take 1 tablet 90 tablet 0 300-30 mg by mouth 9 tabletIndications: every 8 Diabetic mononeuropathy (eight) hours associated with diabetes as needed for mellitus due to Pain (scale underlying condition 7-10). 02/10/2019 Discontinued acetaminophen-codeine Take 1 tablet 60 tablet 3 300-30 mg by mouth 9 tabletIndications: every 8 Diabetic mononeuropathy (eight) hours associated with diabetes as needed for mellitus due to Pain (scale underlying condition 7-10). documented as of this encounter (statuses as of 02/10/2019) Active Problems Problem Noted Date Low back pain radiating to lower extremity 05/06/2018 Overview: Added automatically from request for surgery [id number] Lumbosacral spondylosis without myelopathy 05/06/2018 Overview: Added automatically from request for surgery [id number] Spinal stenosis of lumbar region, unspecified whether neurogenic 09/22/2017 claudication present Overview: Added automatically from request for surgery [id number] Fatigue 04/01/2017 Chronic hepatitis C without hepatic coma 09/24/2016 Umbilical hernia 04/10/2016 Adult BMI 40.0-44.9 kg/sq m 04/10/2016 IDDM (insulin dependent diabetes mellitus) 05/16/2015 COPD (chronic obstructive pulmonary disease) 05/16/2015 HLD (hyperlipidemia) 05/16/2015 Chronic mental illness 05/16/2015 HTN (hypertension) 05/16/2015 History of ETOH abuse 05/16/2015 documented as of this encounter (statuses as of 02/10/2019) Social History Date Tobacco Use Types Packs/Day Years Used Current Every Day Smoker Cigarettes 2 44 Smokeless Tobacco: Never Used Drinks/Week oz/Week Comments Alcohol Use sober for ~4.5 months No Sex Assigned at Date Recorded Not on file Industry Job Start Date Occupation Not on file Not on file Not on file Travel End Travel History Travel Start No recent travel history available. documented as of this encounter Last Filed Vital Signs Not on filedocumented in this encounter Plan of Treatment Health Maintenance Due Date Last Done Comments HEPATITIS C (HCV) SCREEN 1960 PNEUMOCOCCAL 0-64 YEARS 1964 COMBINED SERIES (1 of 1 - PPSV23) EYE EXAM 1968 LDL-C 1968 URINE MICROALBUMIN 1968 FOOT EXAM 1976 DTaP,Tdap,and Td Vaccines 1977 (1 - Tdap) PAP SMEAR 1979 MAMMOGRAM 1998 Zoster Recombinant 2008 Vaccine (SHINGRIX) (1 of 2) LUNG CANCER SCREEN: 2013 Recommended for age 55-80 with 30 + pack year history HgA1C 09/26/2013 03/29/2013 INFLUENZA VACCINE 03/05/2019 CREATININE (SERUM) 09/15/2019 09/14/2018, 06/24/2016, 02/19/2016, Additional history exists COLONOSCOPY 01/19/2027 01/19/2017 documented as of this encounter Results Not on filedocumented in this encounter Visit Diagnoses Diagnosis Diabetic mononeuropathy associated with diabetes mellitus due to underlying condition documented in this encounter Insurance Type Payer Benefit Subscriber ID Effective Phone Address Plan / Dates Group Medicaid [facility] [facility] [facility] [place] xxxxxxxxx 2014-P [employer] [place] resent [id number] MEDICAID [place], [place] documented as of this encounter
--- OUTSIDE RECORDS SUMMARY | 2019-05-01 15:36 | XMS REPORT | Summary of Care ---
Author Author [facility] - Health Organization [facility] - Health Address Unknown Phone Unavailable Care Team Providers Care Wellness Program Coordinator Name Role Phone Pete Ramos PCP Unavailable Yamil Junior MD Unavailable Emili Paez Unavailable Reason for Visit * Reason Comments Refill Request Encounter Details Care Team Description Date Type Department Micheal Giron MD [id number] [place], [place] [address] Refill Request 02/09/2019 Telephone [facility] [address] [place] [address] Allergies Comments Active Allergy Reactions Severity Noted Date Levofloxacin Rash 03/29/2013 Penicillins Unknown - See 03/29/2013 comments documented as of this encounter (statuses as of 02/13/2019) Medications End Date Status Medication Sig Dispensed [...] traMADOL 50 mg tablet 0 7 Active ll-[id number]-BZ-[id number]-[id number]-cjs-epa- Take by 0 fish (CARDIAMIN) 200 mouth [...] Smoking cessation. Active fluticasone 50 Use 1 [place] 16 g 6 mcg/actuation nasal spray in [...] as of this encounter (statuses as of 02/13/2019) Active Problems Problem Noted Date Low back pain radiating to lower extremity 05/06/2018 Overview: Added automatically from request for surgery [id number] Lumbosacral spondylosis without myelopathy 05/06/2018 Overview: Added automatically from request for surgery [id number] Spinal stenosis of lumbar region, unspecified whether neurogenic 09/22/2017 claudication present Overview: Added automatically from request for surgery [id number] Fatigue 04/01/2017 Chronic hepatitis C without hepatic coma 09/24/2016 Umbilical hernia 04/10/2016 Adult BMI 40.0-44.9 kg/sq m 04/10/2016 IDDM (insulin dependent diabetes mellitus) 05/16/2015 COPD (chronic obstructive pulmonary disease) 05/16/2015 HLD (hyperlipidemia) 05/16/2015 Chronic mental illness 05/16/2015 HTN (hypertension) 05/16/2015 History of ETOH abuse 05/16/2015 documented as of this encounter (statuses as of 02/13/2019) Social History Date Tobacco Use Types Packs/Day [...] / Dates Group Medicaid [facility] [place] xxxxxxxxx 2014-P [employer]ARE resent [id number] MEDICAID [place], [place] documented as of this encounter
[2019-05-01] MEDS ORDERED: VANCOMYCIN 1GM/NS 250 ML 250 ML IV ONE (18:30)
[2019-05-01] MEDS ORDERED: CLINDAMYCIN PHOS 900MG/ 50ML 50 ML IV ONE (18:30)
[2019-05-01 19:21] LABS: HEMATOCRIT 41.2 % (34.2-44.1); HEMOGLOBIN 12.2 g/dL (12.0-16.0); MEAN CORPUSCULAR HEMOGLOBIN 23.8 pg (28-32); MEAN CORPUSCULAR HGB CONC 29.6 g/dL (31-35); MEAN CORPUSCULAR VOLUME 80.3 fL (81-99); NEUTROPHILS % 68.7 % (38.7-80.0); PLATELET COUNT 260 x10e3/uL (140-360); RED BLOOD COUNT 5.13 x10e6/uL (3.6-5.1); RED CELL DISTRIBUTION WIDTH 18.5 % (11.7-14.4)
[2019-05-01 19:22] LABS: BASOPHILS % 0.4 % (0.0-1.0); EOSINOPHILS # (AUTO) 0.3 (0.0-0.4); EOSINOPHILS % 2.7 % (0.0-6.0); LYMPHOCYTES # (AUTO) 1.9 (1.0-3.2); LYMPHOCYTES % 19.9 % (18.0-39.1); MONOCYTES # (AUTO) 0.8 (0.2-0.8); NEUTROPHILS # (AUTO) 6.6 (2.1-6.9)
[2019-05-01 19:50] LABS: ALBUMIN 3.2 g/dL (3.5-5.0); ALBUMIN/GLOBULIN RATIO 0.7 (0.8-2.0); ANION GAP 14.3 mmol/L (8-16); CALCIUM 8.9 mg/dL (8.4-10.2); CREATININE, SERUM 0.97 mg/dL (0.57-1.11); POTASSIUM 4.3 mmol/L (3.5-5.1)
[2019-05-01 20:07] LABS: BILIRUBIN,URINE NEGATIVE (NEGATIVE); CLARITY,URINE CLEAR (CLEAR); COLOR,URINE YELLOW (YELLOW); KETONES,URINE NEGATIVE (NEGATIVE); LEUKOCYTE ESTERASE ,URINE NEGATIVE (NEGATIVE); NITRITE,URINE NEGATIVE (NEGATIVE); PROTEIN,URINE DIPSTICK 1+ (NEGATIVE); URINE UROBILINOGEN 0.2 mg/dL (0.2 - 1)
[2019-05-01 20:23] LABS: EPITHELIAL CELLS,URINE RARE /LPF; RBC,URINE 0-5 /HPF (0-5)
[2019-05-01 23:40] VITALS: BP 142/62
== END 2019-05-01 23:52 | disposition home or self-care (01) ==
LOC: ER 15:31
DX: T81.32XA Disruption of internal operation (surgical) wound, not elsewhere classified, initial encounter (principal); E11.9 Type 2 diabetes mellitus without complications; I10 Essential (primary) hypertension; J44.9 Chronic obstructive pulmonary disease, unspecified; K21.9 Gastro-esophageal reflux disease without esophagitis; I25.2 Old myocardial infarction; Z95.1 Presence of aortocoronary bypass graft
CPT/HCPCS: 36415; 80053; 81001; 83605; 85025; 87040; 87071 ×2; 87186; 87205; 99283; J3370